=== PATIENT | male | born 1955 | race Caucasian/White ===

== ENCOUNTER 2019-02-03 15:50 | Emergency (ER) | payer OTHER ==
[2019-02-03 16:36] LABS: Absolute Monocytes 0.6 K/uL (0.1-1.3); Absolute Neutrophil 5.6 K/uL (1.8-8.0); Basophils % 0.9 % (0-1.3); Eosinophils % 0.5 % (0-4.4); Hematocrit 43.2 % (39.6-49.0); Lymphocytes % 14.3 % (15.3-44.8); MPV 9.3 fL (7.6-11.3); Monocytes % 7.6 % (3.3-12.3); RBC Red Blood Cell Count 4.71 M/uL (4.33-5.43)
[2019-02-03 16:37] LABS: Protime INR 1.02
[2019-02-03] MEDS ORDERED: HEPARIN 5000 UNIT/ML 1 ML VIAL ONE (16:45)
[2019-02-03] MEDS ORDERED: HEPARIN/D5W 25,000 UNIT/500 ML BAG IV ONE (16:45)
[2019-02-03] MEDS ORDERED: METOPROLOL TARTRATE 5 MG/5 ML INJ IV ONE (16:46)
--- NOTE | 2019-02-03 16:52 | RAD REPORT ---
EXAM DESCRIPTION: RAD - Chest Single View - 02/03/2019 4:31 pm CLINICAL HISTORY: Right hand and arm numbness, history of CVA, preop examination for arterial occlus ion COMPARISON: December 2017 TECHNIQUE: AP portable chest image was obtained 1629 hours . FINDINGS: No failure, infiltrate or mass. Scarring changes match prior imaging. Heart and vasculatur e are normal. No measurable pleural effusion and no pneumothorax. No acute bony abnormality seen. No acute aortic findings suspected. IMPRESSION: No acute cardiopulmonary process. No significant interval change.
--- NOTE | 2019-02-03 17:00 | EDPHYS ---
Physician Documentation [facility] Name: Ba Ortiz Age: 63 yrs Sex: Male : 1955 Arrival Date: 02/03/2019 Time: 15:51 Bed 7 Private MD: ED Physician Dylan Renteria HPI: 02/03 16:15 This 63 yrs old Male presents to ER via Ambulatory with complaints of kdr Numbness Of Hand. 16:15 The patient or guardian reports pain, weakness, The patient noted pain and weakness in kdr right hand at about 2:00 PM. By 3:00 PM his hand was reported to have been numb. On initial exam, the hand was cool and white/purple. He had limited ROM secondary to weakness and poor circulation. The complaints affect the right hand diffusely. Context: The problem was sustained at home, resulted from an unknown cause. Onset: The symptoms/episode began/occurred acutely, just prior to arrival, at 14:00. Modifying factors: The symptoms are alleviated by nothing, the symptoms are aggravated by nothing. Associated signs and symptoms: The patient has no apparent associated signs or symptoms. Severity of symptoms: At their worst the symptoms were mild, moderate, just prior to arrival, in the emergency department the symptoms are actually worse, markedly. Several years ago had a similar problem which resulted in an arterial bypass in the upper extremities. The patient has not recently seen a physician. Historical: - Allergies: 15:57 No Known Allergies; hj - PMHx: 15:57 Arthritis; BPH; CVA; Diabetes - NIDDM; GERD; Gout; hiatal hernia; Hyperlipidemia; hj Hypertension; PAD; - PSHx: 15:57 Appendectomy; Hernia repair; CABG; hj - Immunization history:: Adult Immunizations up to date. - Social history:: Smoking status: Patient uses tobacco products, Patient uses alcohol. - Ebola Screening: : Patient negative for fever greater than or equal to 101.5 degrees Fahrenheit, and additional compatible Ebola Virus Disease symptoms Patient denies exposure to infectious person Patient denies travel to an Ebola-affected area in the 21 days before illness onset. ROS: 16:15 Constitutional: Negative for fever, chills, and weight loss, Eyes: Negative for injury, kdr pain, redness, and discharge, ENT: Negative for injury, pain, and discharge, Neck: Negative for injury, pain, and swelling, Cardiovascular: Negative for chest pain, palpitations, and edema, Respiratory: Negative for shortness of breath, cough, wheezing, and pleuritic chest pain, Abdomen/GI: Negative for abdominal pain, nausea, vomiting, diarrhea, and constipation, Back: Negative for injury and pain, : Negative for injury, bleeding, discharge, and swelling, Skin: Negative for injury, rash, and discoloration. Exam: 16:53 Constitutional: This is a well developed, well nourished patient who is awake, alert, kdr and in no acute distress. Head/Face: Normocephalic, atraumatic. Eyes: Pupils equal round and reactive to light, extra-ocular motions intact. Lids and lashes normal. Conjunctiva and sclera are non-icteric and not injected. Cornea within normal limits. Periorbital areas with no swelling, redness, or edema. Neck: Trachea midline, no thyromegaly or masses palpated, and no cervical lymphadenopathy. Supple, full range of motion without nuchal rigidity, or vertebral point tenderness. No Meningismus. Chest/axilla: Normal chest wall appearance and motion. Nontender with no deformity. No lesions are appreciated. Cardiovascular: Regular rate and rhythm with a normal S1 and S2. No gallops, murmurs, or rubs. Normal PMI, no JVD. No pulse deficits. Respiratory: Lungs have equal breath sounds bilaterally, clear to auscultation and percussion. No rales, rhonchi or wheezes noted. No increased work of breathing, no retractions or nasal flaring. Abdomen/GI: Soft, non-tender, with normal bowel sounds. No distension or tympany. No guarding or rebound. No evidence of tenderness throughout. Back: No spinal tenderness. No costovertebral tenderness. Full range of motion. Skin: Warm, dry with normal turgor. Normal color with no rashes, no lesions, and no evidence of cellulitis. Neuro: Awake and alert, GCS 15, oriented to person, place, time, and situation. Cranial nerves II-XII grossly intact. Motor strength 5/5 in all extremities. Sensory grossly intact. Cerebellar exam normal. Normal gait. Psych: Awake, alert, with orientation to person, place and time. Behavior, mood, and affect are within normal limits. 16:53 Musculoskeletal/extremity: Extremities: grossly normal except: noted in the right hand: The patient has limited movement of the right hand secondary decreased circulation. Unable to Doppler a pulse in either radial or ulnar arteries. Also, unable to Doppler a brachial or axillary pulse. The patient had had prior bypass grafting on that side of his neck - unknown if this may be interfering with aquisition of pulses in right upper extremity. Cap refill is very slow in the right hand , ROM: Vital Signs: 15:58 BP 210 / 93; Pulse 96; Resp 18; Temp 98.6(O); Pulse Ox 99% on R/A; Weight 88 kg; Height hj 5 ft. 9 in. (175.26 cm); Pain 9/10; 16:05 BP 220 / 107; Pulse 91; Resp 16 S; Pulse Ox 96% on R/A; jl7 16:38 BP 203 / 109; Pulse 77; Resp 16 S; Pulse Ox 97% on R/A; jl7 16:55 BP 189 / 105; Pulse 74; Resp 16 S; Pulse Ox 97% on R/A; jl7 17:05 BP 191 / 97; Pulse 76; Resp 16 S; Pulse Ox 97% on R/A; jl7 18:08 BP 187 / 103; Pulse 93; Resp 16 S; Pulse Ox 97% on R/A; jl7 15:58 Body Mass Index 28.65 (88.00 kg, 175.26 cm) MDM: 17:00 Patient medically screened. kdr 17:00 Data reviewed: vital signs, nurses notes, lab test result(s), radiologic studies. kdr Counseling: I had a detailed discussion with the patient and/or guardian regarding: the historical points, exam findings, and any diagnostic results supporting the discharge/admit diagnosis, lab results, radiology results, the need to transfer to another facility. 02/03 16:15 Order name: Basic Metabolic Panel kdr 02/03 16:15 Order name: CBC with Diff; Complete Time: 16:51 kdr 02/03 16:15 Order name: LFT's kdr 02/03 16:15 Order name: Magnesium kdr 02/03 16:15 Order name: NT PRO-BNP kdr 02/03 16:15 Order name: PT-INR; Complete Time: 16:51 kdr 02/03 16:15 Order name: Troponin (emerg Dept Use Only) kdr 02/03 16:15 Order name: XRAY Chest (1 view) [facility] 02/03 16:51 Order name: Chest Angio [facility] 02/03 16:52 Order name: Upper Ext Angio [facility] 02/03 16:15 Order name: Cardiac monitoring [facility] 02/03 16:15 Order name: IV Saline Lock kdr 02/03 16:15 Order name: Labs collected and sent kdr 02/03 16:15 Order name: O2 Per Protocol kdr 02/03 16:15 Order name: O2 Sat Monitoring kdr Administered Medications: 16:45 Drug: Lopressor 5 mg Route: IVP; Site: left forearm; jl7 16:50 Drug: Heparin (DVT/PE- Bolus per protocol) - HEParin 80 units/kg {Co-Signature: hb jl7 (Kristal Lang RN).} Route: IVP; Site: left hand; 17:30 Follow up: Response: No adverse reaction jl7 16:56 Drug: Lopressor 5 mg Route: IVP; Site: left forearm; jl7 17:00 Drug: Heparin (DVT/PE Drip) 18 units/kg/hr - (HEParin 25354 units, D5W 500 ml) jl7 {Co-Signature: hb (Kristal Lang RN).} Route: IV; Rate: calculated rate; Site: left hand; 17:49 Follow up: IV Status: Infusion continued upon transfer jl7 17:09 Drug: Lopressor 5 mg Route: IVP; Site: left forearm; jl7 18:03 Follow up: Response: No adverse reaction; Blood pressure is unchanged jl7 17:21 Drug: Zofran 4 mg Route: IVP; Site: left forearm; jl7 17:48 Follow up: Response: No adverse reaction jl7 17:23 Drug: morphine 4 mg Route: IVP; Site: left forearm; jl7 17:48 Follow up: Response: No adverse reaction; Pain is decreased jl7 Disposition: 02/03/19 17:[address] [facility]. Diagnosis is Acute arterial occlusion of the right hand, ulnar and radial arteries. - Reason for transfer: Higher level of care. - Accepting physician is Dr. Sarkar. - Condition is Stable. - Problem is new. - Symptoms are unchanged. Signatures: Dispatcher [employer] [facility] Dylan Renteria MD MD kdr Gonsalo Burdick, RN RN Tenzin Bauer RN RN jl7 Kristal Lang RN Corrections: (The following items were deleted from the chart) 16:54 16:51 Extremity Upper W/Wo Contr ordered. EDMS EDMS 18:10 17:00 02/03/2019 17:[address] [facility]. Diagnosis is jl7 Acute arterial occlusion of the right hand, ulnar and radial arteries. Reason for transfer: Higher level of care. Accepting physician is Dr. Sarkar. Condition is Stable. Problem is new. Symptoms are unchanged. kdr
--- NOTE | 2019-02-03 17:00 | ER ---
Nurse's Notes [facility] Name: Ba Ortiz Age: 63 yrs Sex: Male : 1955 Arrival Date: 02/03/2019 Time: 15:51 Bed 7 Private MD: Diagnosis: Acute arterial occlusion of the right hand, ulnar and radial arteries Presentation: 02/03 15:54 Presenting complaint: Patient states: my hands went numb that started 2 pm today; just hj sitting on my room; i have a bypass subclavian in 2013; my R hand is cold and clammy and numb; denies weakness on all extremities; denies speech problem;. Transition of care: patient was not received from another setting of care. Onset of symptoms was February 03, 2019. Risk Assessment: Do you want to hurt yourself or someone else? Patient reports no desire to harm self or others. Initial Sepsis Screen: Does the patient meet any 2 criteria? No. Patient's initial sepsis screen is negative. Does the patient have a suspected source of infection? No. Patient's initial sepsis screen is negative. Care prior to arrival: None. 15:54 Method Of Arrival: Ambulatory 15:54 Acuity: BETHEL 2 hj Triage Assessment: 15:58 General: Appears in no apparent distress. uncomfortable, Behavior is calm, cooperative, hj appropriate for age. Pain: Complains of pain in right hand. Historical: - Allergies: 15:57 No Known Allergies; hj - PMHx: 15:57 Arthritis; BPH; CVA; Diabetes - NIDDM; GERD; Gout; hiatal hernia; Hyperlipidemia; hj Hypertension; PAD; - PSHx: 15:57 Appendectomy; Hernia repair; CABG; hj - Immunization history:: Adult Immunizations up to date. - Social history:: Smoking status: Patient uses tobacco products, Patient uses alcohol. - Ebola Screening: : Patient negative for fever greater than or equal to 101.5 degrees Fahrenheit, and additional compatible Ebola Virus Disease symptoms Patient denies exposure to infectious person Patient denies travel to an Ebola-affected area in the 21 days before illness onset. Screenin:58 Abuse screen: Denies threats or abuse. Denies injuries from another. Nutritional hj screening: No deficits noted. Tuberculosis screening: No symptoms or risk factors identified. Fall Risk None identified. Assessment: 16:05 General: Appears in no apparent distress. uncomfortable, Behavior is calm, cooperative, jl7 appropriate for age. Pain: Complains of pain in right hand. Neuro: Level of Consciousness is awake, alert, obeys commands, Oriented to person, place, time, situation. Cardiovascular: Patient's skin is warm and dry. Pulses are absent in right radial artery and right brachial artery are palpable in left radial artery are 1+ in left radial artery. Respiratory: Airway is patent Respiratory effort is even, unlabored, Respiratory pattern is regular, symmetrical. Derm: Skin is pink, warm \T\ dry. 17:00 Reassessment: Patient appears in no apparent distress at this time. No changes from jl7 previously documented assessment. Patient and/or family updated on plan of care and expected duration. Pain level reassessed. Patient is alert, oriented x 3, equal unlabored respirations, skin warm/dry/pink. Vital Signs: 15:58 BP 210 / 93; Pulse 96; Resp 18; Temp 98.6(O); Pulse Ox 99% on R/A; Weight 88 kg; Height hj 5 ft. 9 in. (175.26 cm); Pain 9/10; 16:05 BP 220 / 107; Pulse 91; Resp 16 S; Pulse Ox 96% on R/A; jl7 16:38 BP 203 / 109; Pulse 77; Resp 16 S; Pulse Ox 97% on R/A; jl7 16:55 BP 189 / 105; Pulse 74; Resp 16 S; Pulse Ox 97% on R/A; jl7 17:05 BP 191 / 97; Pulse 76; Resp 16 S; Pulse Ox 97% on R/A; jl7 18:08 BP 187 / 103; Pulse 93; Resp 16 S; Pulse Ox 97% on R/A; jl7 15:58 Body Mass Index 28.65 (88.00 kg, 175.26 cm) hj ED Course: 15:51 Patient arrived in ED. rg4 15:56 Triage completed. hj 15:58 Arm band placed on right wrist. hj 15:58 Patient has correct armband on for positive identification. Placed in gown. Bed in low hj position. Call light in reach. Side rails up X 1. 16:01 Tenzin Thornton RN is Primary Nurse. jl7 16:05 Dylan Renteria MD is Attending Physician. kdr 16:20 Initial lab(s) drawn, by me, sent to lab. Inserted saline lock: 20 gauge in left hand, jl7 using aseptic technique. Blood collected. 16:32 XRAY Chest (1 view) In Process Unspecified. EDMS 16:35 initiated a transfer with Nani at the [facility] transfer center. eb 16:[address] odom the vascular surgeon orthodontist vice president with Dr. Renteria for patient transfer eb consultation. 16:45 Inserted saline lock: 22 gauge in left forearm, using aseptic technique. jl7 17:15 administrative approval given by Nani Lee at [facility]/ patient is going to bed 1155/ report to be called to [phone]/ Dr. Odom has accepted the patient in [facility]. 17:26 Sina Griffin called for transport ETA 25 minutes. eb 17:[address] via stretcher. vr 17:49 Chest Angio In Process Unspecified. EDMS 17:49 Upper Ext Angio In Process Unspecified. EDMS 18:05 No provider procedures requiring assistance completed. Patient transferred, IV remains jl7 in place. intact, No redness/swelling at site. Administered Medications: 16:45 Drug: Lopressor 5 mg Route: IVP; Site: left forearm; jl7 16:50 Drug: Heparin (DVT/PE- Bolus per protocol) - HEParin 80 units/kg {Co-Signature: hb jl7 (Kristal Lang RN).} Route: IVP; Site: left hand; 17:30 Follow up: Response: No adverse reaction jl7 16:56 Drug: Lopressor 5 mg Route: IVP; Site: left forearm; jl7 17:00 Drug: Heparin (DVT/PE Drip) 18 units/kg/hr - (HEParin 68891 units, D5W 500 ml) jl7 {Co-Signature: hb (Kristal Lang RN).} Route: IV; Rate: calculated rate; Site: left hand; 17:49 Follow up: IV Status: Infusion continued upon transfer jl7 17:09 Drug: Lopressor 5 mg Route: IVP; Site: left forearm; jl7 18:03 Follow up: Response: No adverse reaction; Blood pressure is unchanged jl7 17:21 Drug: Zofran 4 mg Route: IVP; Site: left forearm; jl7 17:48 Follow up: Response: No adverse reaction jl7 17:23 Drug: morphine 4 mg Route: IVP; Site: left forearm; jl7 17:48 Follow up: Response: No adverse reaction; Pain is decreased jl7 Outcome: 17:00 ER care complete, transfer ordered by . kdr 18:05 Transferred by helicopter to [facility], [facility], Transfer form completed. jl7 18:05 Condition: stable 18:05 Discharge instructions given to patient, family, Instructed on the need for transfer, Demonstrated understanding of instructions. 18:10 Patient left the ED. jl7 Signatures: Dispatcher [employer] EDMS Dylan Renteria MD MD kdr Davis, Victoria vr Joaquin, Henry, RN RN Nathaly Valero Jahala, RN RN jlLeonela Fleming RN Corrections: (The following items were deleted from the chart) 16:02 15:58 Pulse 96bpm; Resp 18bpm; Pulse Ox 99% RA; Temp 98.6F Oral; 88 kg; Height 5 ft. 9 hj in.; BMI: 28.6; Pain 9/10; hj 16:06 15:54 Acuity: BETHEL 3 hj hj 17:28 16:[address] Viera the vascular surgeon orthodontist vice president with Dr. Renteria for patient eb transfer consultation. eb
[2019-02-03 17:01] LABS: ALT/SGPT 49 U/L (12-78); AST/SGOT 31 U/L (15-37); Albumin 3.7 g/dL (3.4-5.0); Alkaline Phosphatase 98 U/L (45-117); BUN Blood Urea Nitrogen 19 mg/dL (7-18); Bicarbonate 20 mmol/L (21-32); Bilirubin Direct 0.2 mg/dL (0-0.2); Bilirubin Total 0.5 mg/dL (0.2-1.0); Glucose Level 208 mg/dL (74-106); NT PRO-BNP 43 pg/mL (<125); Potassium 5.2 mmol/L (3.5-5.1); Protein, Total 8.1 g/dL (6.4-8.2); Sodium Level 136 mmol/L (136-145); Troponin (Emerg Dept Use Only) < 0.02 ng/mL (0.0-0.045)
[2019-02-03] MEDS ORDERED: MORPHINE 4 MG/ML SYR ONE (17:31)
[2019-02-03] MEDS ORDERED: ONDANSETRON 4 MG/2 ML VIAL ONE (17:31)
--- NOTE | 2019-02-03 18:01 | RAD REPORT ---
EXAM DESCRIPTION: CT - Chest Angio - 02/03/2019 5:48 pm CLINICAL HISTORY: Extremity numbness, arterial occlusion, history of subclavian bypass 2014, right h and cold and clammy and numb COMPARISON: None. TECHNIQUE: Dynamically enhanced axial 3 mm thick images of the chest were obtained during administra tion of 150 mL Isovue 370 IV contrast. Coronal and oblique reconstruction images were generated using maximum intensity projection protocol and reviewed. All CT scans are performed using dose optimization technique as appropriate and may include automated exposure control or mA/KV adjustment according to patient size. FINDINGS: Aortic arch is 3 vessel configuration. The left subclavian artery origin is occluded. Ther e is left common carotid to left subclavian bypass on the left. No left common carotid artery stenosi s. The bypass is fully patent. The mid and distal portion of the subclavian artery on the left is int act with patent left axillary artery. Innominate artery is patent. Right common carotid artery is pat ent as well. Right subclavian bypass is present. Vascular graft is present extending from the right c ommon carotid artery to the midportion of the right subclavian [place] artery. The distal portion of t he right subclavian artery into the right axillary artery is small in size compared to the left but p atent. Aorta shows no significant or suspicious finding. Celiac, superior mesenteric and right renal artery unremarkable. No left kidney is seen. No acute finding in the lung parenchyma. No pneumothorax or pleural effusion. Patient has a very large hiatal hernia with most of the stomach intrathoracic. No mediastinal or [place]ia [place] r mass or lymphadenopathy. No axillary mass. IMPRESSION: The right internal carotid artery to distal subclavian artery bypass is occluded. Blood flow is identifiable in the distal aspect of the right subclavian artery into the right axillar y artery. This vessel is diminished in size compared to the left. Opacification is presumed to be fro m a collateralized [place] vessel. Occluded origin of the left subclavian artery. There is a patent graft between the left internal lott tid artery and midportion of the left subclavian artery. Distal left subclavian artery and axillary a rtery on the left are patent. No acute aortic finding. No pulmonary arterial tree abnormality.
--- NOTE | 2019-02-03 18:05 | RAD REPORT ---
EXAM DESCRIPTION: CT - Upper Ext Angio - 02/03/2019 5:48 pm CLINICAL HISTORY: Right upper extremity pain, arterial occlusion COMPARISON: CT angio chest same day TECHNIQUE: During dynamic enhancement using nonionic IV contrast, axial 3 millimeter thick images we re obtained of the chest and right upper extremity. Sagittal and coronal reformatted images were gene rated and reviewed using a maximum intensity projection protocol. The CT scan was performed using dose optimization techniques as appropriate to a performed exam incl uding one or more of the following: Automated exposure control, adjustment of the mA and/or kV accord ing to patient size (this includes techniques or standardized protocols for targeted exams where dose is matched to indication/reason for exam) and use of iterative reconstruction technique. FINDINGS: On the separately reported CT angio chest study, the patient's right internal carotid to s ubclavian artery bypass graft is occluded. The distal right subclavian artery into the right axillary artery is patent. However, the vessel is small in diameter compared to the left subclavian and axill janet arteries. Brachial artery remains patent. Contrast opacification terminates near the elbow joint. No arterial opacification seen distal to the elbow. Exam is technically limited due to positioning l imitations for this patient. No extravasation of contrast. No soft tissue mass. IMPRESSION: The patient's right internal carotid artery to distal right subclavian artery bypass gra ft is occluded. The distal aspect of the right subclavian artery, axillary artery and brachial artery to the elbow eneida int are patent with overall diminished diameter compared to the left. No arterial blood flow could be demonstrated distal to the elbow joint.
== END 2019-02-03 18:10 | disposition short-term general hospital (02) ==
LOC: ER 15:50
DX: I70.8 Atherosclerosis of other arteries (principal); N40.0 Benign prostatic hyperplasia without lower urinary tract symptoms; E11.9 Type 2 diabetes mellitus without complications; K21.9 Gastro-esophageal reflux disease without esophagitis; M10.9 Gout, unspecified; E78.5 Hyperlipidemia, unspecified; I10 Essential (primary) hypertension; Z72.0 Tobacco use
CPT/HCPCS: 96365; 85025; 80048; 36415; 83735; 85610; 80076; 84484; 83880; 73206; 71275; 71045; 96375; 99285; Q9967; J1644 ×2; J2405

== ENCOUNTER 2021-12-18 00:31 | Emergency (ER) | payer OTHER ==
--- OUTSIDE RECORDS SUMMARY | 2021-12-18 00:34 | XMS REPORT | Continuity of Care Document ---
:1955 Author Organization [facility] t Address [address] [place] [place] [address] Care Team Providers Name Role Phone EVERTON Attending Clinician Unavailable Everton SCHWARZ Attending Clinician ADELA Attending Clinician Unavailable EVERTON Admitting Clinician Unavailable ADELA Admitting Clinician Unavailable Payers Payer Name Policy Type Policy Number Effective Date Expiration Date S thompson MEDICARE A B [id number] 2018 00:00:00 [facility] CHO[facility] [id number] 2019 CARD AND PC3 00:00:00 Problems This patient has no known problems. Allergies, Adverse Reactions, Alerts Allergy Allergy Status Severity Reaction(s) Onset Inactive Treating Comm ents Source Name Type Date Date Clinician PROPOFOL Allergy Active [facility] NO KNOWN Allergy [facility] Social History Social Habit Start Date Stop Date Quantity Comments Source Sex Assigned At M [facility] llgeovani of Medicine Exposure to Not sure [facility] Jose hernandez SARS-CoV-2 of Medicine (event) Alcohol intake 2020-07-11 2020-07-11 Current drinker [facility] 00:00:00 00:00:00 of alcohol of Medicine (finding) Tobacco use and 2020-07-11 2020-07-11 Never used [facility] josé miguele exposure 00:00:00 00:00:00 of Medicine Smoking Status Start Date Stop Date Source Former smoker 2020-07-11 00:00:00 2020-07-11 00:00:00 [facility] Suahil ingram of Medicine Medications Ordered Filled Start Stop Current Ordering Indication Dosage Frequency Signature Comments Components Source Medication Medication Date Date Medication? Clinician (SIG) Name Name Apixaban 2020-0 Yes 5mg Take 5 mg [facility] (ELIQUIS) 5 9-10 by mouth. Col [facility]ge MG TABS 15:12: of 37 Medicin e omeprazole 2020-0 Yes 40mg Take 40 mg [facility] (PRILOSEC) 8-21 by mouth. Rena ege 40 MG 21:14: of capsule 24 Medicin e losartan 2020-0 Yes 25mg Take 25 mg [place] jan (COZAAR) 25 8-21 by mouth. Col [facility]ge MG tablet 21:14: of 24 Medicin e carvedilol 2020-0 Yes 25mg Take 25 mg [facility] (COREG) 25 8-21 by mouth. Rena ege MG tablet 21:14: of 24 Medicin e metformin 2020-0 Yes 500mg Take 500 [place] jan (GLUCOPHAGE 8-21 mg by [place] ) 500 MG 21:14: mouth. of tablet 24 Medicin e finasteride 2020-0 Yes 5mg Take 5 mg [facility] (PROSCAR) 5 8-21 by mouth. Col [facility]ge MG tablet 21:14: of 24 Medicin e atorvastati 2020-0 Yes 40mg Take 40 mg [facility] n (LIPITOR) 8-21 by mouth. Col [facility]ge 40 MG 21:14: of tablet 24 Medicin e carvedilol 2020-0 Yes 25mg Take 25 mg [facility] (COREG) 25 6-22 by mouth. Rena ege MG tablet 16:22: of 22 Medicin e metformin 2020-0 Yes 500mg Take 500 [place] jan (GLUCOPHAGE 6-22 mg by [place] ) 500 MG 16:22: mouth. of tablet 22 Medicin e finasteride 2020-0 Yes 5mg Take 5 mg [facility] (PROSCAR) 5 6-22 by mouth. Col [facility]ge MG tablet 16:22: of 22 Medicin e atorvastati 2020-0 Yes 40mg Take 40 mg [facility] n (LIPITOR) 6-22 by mouth. Col [facility]ge 40 MG 16:22: of tablet 22 Medicin e losartan 2020-0 Yes 25mg Take 25 mg [place] jan (COZAAR) 25 6-22 by mouth. Col [facility]ge MG tablet 16:22: of 22 Medicin e omeprazole 2019-0 Yes 40mg Take 40 mg [facility] (PRILOSEC) 6-22 by mouth. Rena ege 40 MG 16:22: of capsule 21 Medicin e Vital Signs Vital Name Observation Time Observation Value Comments Source HEIGHT 2020-05-01 00:00:00 172.7 cm WEIGHT 2020-05-01 00:00:00 84.2 kg Systolic blood 2020-07-11 15:13:00 197 mm[Hg] [facility] Diastolic blood 2020-07-11 15:13:00 112 mm[Hg] [facility] Heart rate 2020-07-11 15:13:00 92 /min [facility] HEIGHT 2020-05-01 00:00:00 172.7 cm WEIGHT 2020-05-01 00:00:00 84.2 kg Systolic blood 2020-04-22 16:11:00 131 mm[Hg] [facility] Diastolic blood 2020-04-22 16:11:00 85 mm[Hg] [facility] Heart rate 2020-04-22 16:11:00 90 /min [facility] Body temperature 2020-04-22 16:11:00 36.61 [facility] Respiratory rate 2020-04-22 16:11:00 18 /min [facility] Systolic blood 2020-04-22 16:11:00 131 mm[Hg] [facility] Diastolic blood 2020-04-22 16:11:00 85 mm[Hg] [facility] Heart rate 2020-04-22 16:11:00 90 /min [facility] Body temperature 2020-04-22 16:11:00 36.61 [facility] Respiratory rate 2020-04-22 16:11:00 18 /min [facility] Procedures Procedure Date / Time Performed Performing Clinician Sourc e LARYNGOSCOPY, FLEXIBLE 2020-07-11 17:06:00 [facility] WITH STROBOSCOPY LARYNGOSCOPY, FLEXIBLE 2020-04-22 17:57:00 Melanie Toscano Ba [facility] of OR RIGID TELESCOPIC, Medicine WITH STROBOSCOPY Plan of Care Planned Activity Planned Date Details Comments Source Future Scheduled LARYNGOSCOPY, Ordered: [facility] Col lege Test FLEXIBLE; DIAGNOSTIC 04/22/2020 of [employer] [code = 09607] Future Scheduled [place] LARYNGOSCOPY Ordered: [facility] C ollege Test FLX/RGD TELESCOPIC 04/22/2020 of Medici ne W/STROBOSCOPY [code = 48518] Future Scheduled COLON CANCER [facility] Rena ege Test SCREENING: of Medicine COLONOSCOPY [code = COLON CANCER SCREENING: COLONOSCOPY] Future Scheduled TETANUS SHOT (ADULT) [place] [facility] [employer] Test [code = TETANUS SHOT of Medi cine (ADULT)] Future Scheduled HEPATITIS C SCREENING [employer] Test [code = HEPATITIS C of Medic ine SCREENING] Future Scheduled MEDICARE AWV [facility] Test (Initial) [code = of Medicin e MEDICARE AWV (Initial)] Future Scheduled FALL SCREEN [code = [employer] Test FALL SCREEN] of Medicine Future Scheduled PNEUMOVAX >=65 [employer] Test (PPSV23) [code = of Medicine PNEUMOVAX >=65 (PPSV23)] Future Scheduled FLU VACCINE > 6 [facility] [employer] Test MONTHS [code = FLU of Medici ne VACCINE > 6 MONTHS] Future Scheduled LARYNGOSCOPY, Ordered: [facility] Col lege Test FLEXIBLE; DIAGNOSTIC 07/11/2020 of [employer] [code = 67572] Future Scheduled COLON CANCER [facility] Rena ege Test SCREENING: of Medicine COLONOSCOPY [code = COLON CANCER SCREENING: COLONOSCOPY] Future Scheduled TETANUS SHOT (ADULT) [place] [facility] [employer] Test [code = TETANUS SHOT of Medi cine (ADULT)] Future Scheduled HEPATITIS C SCREENING [employer] Test [code = HEPATITIS C of Medic ine SCREENING] Future Scheduled ZOSTER VACCINE (1 of [place] jan [employer] Test 2) [code = ZOSTER of Medicin e VACCINE (1 of 2)] Future Scheduled AAA Screen [code = [employer] Test AAA Screen] of Medicine Future Scheduled FALL SCREEN [code = [employer] Test FALL SCREEN] of Medicine Future Scheduled PNEUMOVAX >=65 [facility] Co llege Test (PPSV23) [code = of Medicine PNEUMOVAX >=65 (PPSV23)] Future Scheduled FLU VACCINE > 6 [facility] [employer] Test MONTHS [code = FLU of Medici ne VACCINE > 6 MONTHS] Encounters Start End Encounter Admission Attending Care Care Encounter Source Date/Time Date/Time Type Type Clinicians Facility Department ID 2021-08-05 Outpatient BRANDON TOSCANO Surgery [id number] SLE 22:27:59 MELANIE 2020-07-11 2020-07-11 Office ERNESTO Toscano [id number] [facility] 10:02:43 12:01:52 Visit Melanie AMBULATOR [id number] College Y 0.2.7.2.686 of [id number] [facility] deshawn 800 e 2020-05-16 2020-05-16 Outpatient [facility] [id number] SLE 00:00:00 00:00:00 2020-04-22 2020-04-22 Office ERNESTO Toscano [id number] 10:01:10 11:50:56 Visit Melanie AMBULATOR 350.1.13.21 Y 0.2.7.2.686 [id number] 2020-04-22 2020-04-22 Office ERNESTO Toscano [id number] [facility] 10:01:10 11:50:56 Visit Melanie AMBULATOR 350.1.13.21 College Y 0.2.7.2.686 of [id number] [facility] deshawn 800 e Results Test Description Test Time Test Comments Results Result [facility] e Comments LARYNGOSCOPY, 2020-07-11 IMAGES ARE [facility] Rena ege FLEXIBLE OR RIGID 17:06:00 AVAILABLE FOR [facility] ryan TELESCOPIC, WITH VIEWING. STROBOSCOPY POCT-GLUCOSE METER 2020-05-17 17:18:00 Test Item Value Reference Range Interpretation Comme nts POC-GLUCOSE METER (BEAKER) 184 mg/dL 70-110 H : TESTED AT [facility] [address] (test code = 1538) [place], [id number]: Specialized Developer/Techni adonis ID = [id number] for KLAUS SHERIDAN BASIC METABOLIC [id number] 10:20:00 Test Item Value Reference Range Interpretation Comments SODIUM (BEAKER) 136 meq/L 136-145 (test code = 381) POTASSIUM (BEAKER) 4.6 meq/L 3.5-5.1 (test code = 379) CHLORIDE (BEAKER) 103 meq/L 98-107 (test code = 382) CO2 (BEAKER) (test 22 meq/L 22-29 code = 355) BLOOD UREA NITROGEN 15 mg/dL 7-21 (BEAKER) (test code = 354) CREATININE (BEAKER) 1.44 mg/dL 0.57-1.25 H (test code = 358) GLUCOSE RANDOM 172 mg/dL 70-105 H (BEAKER) (test code = 652) CALCIUM (BEAKER) 9.9 mg/dL 8.4-10.2 (test code = 697) EGFR (BEAKER) (test 49 mL/min/1.73 ESTIMA YEIMI GFR IS code = 1092) sq m NOT ACCURATE CREATININE CLEARANCE IN PREDICTING GLOMERULAR FILTRATION RATE . ESTIMATED GFR I S NOT APPLICABLE FOR DIALYSIS PATIEN TS. Specialized Developer ID - [place] [id number] 10:01:00 Test Item Value Reference Range Interpretation Comments HEMOGLOBIN (BEAKER) (test code = 12.2 GM/DL 13.7-17.5 L 410) Specialized Developer ID - [id number] 08:23:00 Test Item Value Reference Range Interpretation Comments POC-GLUCOSE METER 170 mg/dL 70-110 H : [facility] (BEAKER) (test code = FELIPE Princess [facility], 1538) [address]: Specialized Developer/Techni adonis ID = [id number] for BE NSON, HELEN LARYNGOSCOPY, FLEXIBLE OR RIGID TELESCOPIC, WITH [id number] 17:57:00 IMAGES [id number] 22:53[facility]00 Test Item Value Reference Range Interpretation Comments PARTIAL THROMBOPLASTIN TIME 65.0 seconds 22.5-36.0 H (BEAKER) (test code = 760) BASIC METABOLIC [id number] 22:45:00 Test Item Value Reference Range Interpretation Comments SODIUM (BEAKER) 134 meq/L 136-145 L (test code = 381) POTASSIUM (BEAKER) 5.9 meq/L 3.5-5.1 H (test code = 379) CHLORIDE (BEAKER) 99 meq/L 98-107 (test code = 382) CO2 (BEAKER) (test 18 meq/L 22-29 L code = 355) BLOOD UREA NITROGEN 21 mg/dL 7-21 (BEAKER) (test code = 354) CREATININE (BEAKER) 1.46 mg/dL 0.57-1.25 H (test code = 358) GLUCOSE RANDOM 174 mg/dL 70-105 H (BEAKER) (test code = 652) CALCIUM (BEAKER) 9.4 mg/dL 8.4-10.2 (test code = 697) EGFR (BEAKER) (test 48 mL/min/1.73 ESTIMA YEIMI GFR IS code = 1092) sq m NOT ACCURATE CREATININE CLEARANCE IN PREDICTING GLOMERULAR FILTRATION RATE . ESTIMATED GFR I S NOT APPLICABLE FOR DIALYSIS PATIEN TS. CBC W/PLT COUNT & AUTO [id number] 22:35:00 Test Item Value Reference Range Interpretation Comments WHITE BLOOD CELL COUNT (BEAKER) 8.3 K/ L 3.5-10.5 (test code = 775) RED BLOOD CELL COUNT (BEAKER) 4.70 M/ L 4.63-6.08 (test code = 761) HEMOGLOBIN (BEAKER) (test code = 14.0 GM/DL 13.7-17.5 410) HEMATOCRIT (BEAKER) (test code = 43.4 % 40.1-51.0 411) MEAN CORPUSCULAR VOLUME (BEAKER) 92.3 fL 79.0-92.2 H (test code = 753) MEAN CORPUSCULAR HEMOGLOBIN 29.8 pg 25.7-32.2 (BEAKER) (test code = 751) MEAN CORPUSCULAR HEMOGLOBIN CONC 32.3 GM/DL 32.3-36.5 (BEAKER) (test code = 752) RED CELL DISTRIBUTION WIDTH 14.6 % 11.6-14.4 H (BEAKER) (test code = 412) PLATELET COUNT (BEAKER) (test 180 K/CU MM 150-450 code = 756) MEAN PLATELET VOLUME (BEAKER) 10.6 fL 9.4-12.4 (test code = 754) NUCLEATED RED BLOOD CELLS 0 /100 WBC 0-0 (BEAKER) (test code = 413) NEUTROPHILS RELATIVE PERCENT 82 % (BEAKER) (test code = 429) LYMPHOCYTES RELATIVE PERCENT 10 % (BEAKER) (test code = 430) MONOCYTES RELATIVE PERCENT 7 % (BEAKER) (test code = 431) EOSINOPHILS RELATIVE PERCENT 0 % (BEAKER) (test code = 432) BASOPHILS RELATIVE PERCENT 0 % (BEAKER) (test code = 437) NEUTROPHILS ABSOLUTE COUNT 6.77 K/ L 1.78-5.38 H (BEAKER) (test code = 670) LYMPHOCYTES ABSOLUTE COUNT 0.84 K/ L 1.32-3.57 L (BEAKER) (test code = 414) MONOCYTES ABSOLUTE COUNT (BEAKER) 0.59 K/ L 0.30-0.82 (test code = 415) EOSINOPHILS ABSOLUTE COUNT 0.00 K/ L 0.04-0.54 L (BEAKER) (test code = 416) BASOPHILS ABSOLUTE COUNT (BEAKER) 0.03 K/ L 0.01-0.08 (test code = 417) IMMATURE GRANULOCYTES-RELATIVE 1 % 0-1 PERCENT (BEAKER) (test code = 2801) BASIC METABOLIC [id number] 20:47:00 Test Item Value Reference Range Interpretation Comments SODIUM (BEAKER) 132 meq/L 136-145 L (test code = 381) POTASSIUM (BEAKER) 7.3 meq/L 3.5-5.1 HH Specimen slightly (test code = 379) hemolyzed CHLORIDE (BEAKER) 99 meq/L 98-107 (test code = 382) CO2 (BEAKER) (test 17 meq/L 22-29 L code = 355) BLOOD UREA NITROGEN 20 mg/dL 7-21 (BEAKER) (test code = 354) CREATININE (BEAKER) 1.47 mg/dL 0.57-1.25 H Specimen slightly (test code = 358) hemolyzed GLUCOSE RANDOM 195 mg/dL 70-105 H (BEAKER) (test code = 652) CALCIUM (BEAKER) 9.3 mg/dL 8.4-10.2 (test code = 697) EGFR (BEAKER) (test 48 mL/min/1.73 ESTIMA YEIMI GFR IS code = 1092) sq m NOT ACCURATE CREATININE CLEARANCE IN PREDICTING GLOMERULAR FILTRATION RATE . ESTIMATED GFR I S NOT APPLICABLE FOR DIALYSIS PATIEN TS. [id number] 20:46:00 Test Item Value Reference Range Interpretation Comments PARTIAL THROMBOPLASTIN TIME 153.8 seconds 22.5-36.0 HH (BEAKER) (test code = 760) Prior to initiating heparinCBC (HEMOGRAM ONLY)2019-02-03 20:21:00 Test Item Value Reference Range Interpretation Comments WHITE BLOOD CELL COUNT (BEAKER) 8.5 K/ L 3.5-10.5 (test code = 775) RED BLOOD CELL COUNT (BEAKER) 4.70 M/ L 4.63-6.08 (test code = 761) HEMOGLOBIN (BEAKER) (test code = 14.0 GM/DL 13.7-17.5 410) HEMATOCRIT (BEAKER) (test code = 43.1 % 40.1-51.0 411) MEAN CORPUSCULAR VOLUME (BEAKER) 91.7 fL 79.0-92.2 (test code = 753) MEAN CORPUSCULAR HEMOGLOBIN 29.8 pg 25.7-32.2 (BEAKER) (test code = 751) MEAN CORPUSCULAR HEMOGLOBIN CONC 32.5 GM/DL 32.3-36.5 (BEAKER) (test code = 752) RED CELL DISTRIBUTION WIDTH 14.6 % 11.6-14.4 H (BEAKER) (test code = 412) PLATELET COUNT (BEAKER) (test 228 K/CU MM 150-450 code = 756) MEAN PLATELET VOLUME (BEAKER) 10.9 fL 9.4-12.4 (test code = 754) NUCLEATED RED BLOOD CELLS 0 /100 WBC 0-0 (BEAKER) (test code = 413)
--- NOTE | 2021-12-18 00:56 | ER ---
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 Coronavirus screen: al4 Vaccine status: Patient reports receiving the 2nd dose of the covid vaccine. Ebola Screen: No symptoms or risks identified at this time. Initial Sepsis Screen: Does the patient meet any 2 criteria? No. Patient's initial sepsis screen is negative. Does the patient have a suspected source of infection? No. Patient's initial sepsis screen is negative. Risk Assessment: Do you want to hurt yourself or someone else? Patient reports no desire to harm self or others. Onset of symptoms was December 18, 2021. 00:34 Method Of Arrival: EMS al4 00:34 Acuity: BETHEL 2 al4 00:34 Note ERP at bedside assessing patient. al4 Triage Assessment: 00:36 General: Appears in no apparent distress. comfortable, Behavior is calm, cooperative, al4 Patient states symptoms started around 1130pm last night. Patient c/o right arm pain and numbness. R radial + R brachial pulse not palpable and arm/hand is blue upon assessment. Pain: Complains of pain in right arm Pain currently is 10 out of 10 on a pain scale. EENT: No signs and/or symptoms were reported regarding the EENT system. Neuro: Level of Consciousness is awake, alert, obeys commands, Oriented to person, place, time, situation. 00:39 Cardiovascular: Patient's skin is warm and dry. with exception to R arm. Pulses are al4 palpable in right dorsalis pedis artery, left radial artery and left dorsalis pedis artery. Respiratory: Airway is patent Respiratory effort is even, unlabored, Respiratory pattern is regular, symmetrical. GI: No signs and/or symptoms were reported involving the gastrointestinal system. : No signs and/or symptoms were reported regarding the genitourinary system. Derm: Skin is intact, Skin is right arm is pale/blue. Musculoskeletal: Range of motion: intact in all extremities. Historical: - PMHx: 00:36 Arthritis; BPH; CVA; Diabetes - NIDDM; GERD; Gout; hiatal hernia; Hyperlipidemia; al4 Hypertension; PAD; - PSHx: 00:44 bypass surgery x 2 right side; bypass surgery x 1 left side; al4 - Immunization history:: Adult Immunizations up to date. - Social history:: Smoking status: Patient/guardian denies using tobacco. - Family history:: not pertinent. Screenin:42 Abuse screen: Denies threats or abuse. Nutritional screening: No deficits noted. al4 Tuberculosis screening: No symptoms or risk factors identified. Fall Risk. Assessment: 12/17 02:20 Reassessment: No changes from previously documented assessment. Patient and/or family mk updated on plan of care and expected duration. Pain level reassessed. Patient is alert, oriented x 3, equal unlabored respirations, skin warm/dry/pink. 12/18 00:40 General: Appears in no apparent distress. Behavior is cooperative. Pain: Complains of mk pain in right arm Pain radiates to right hand Pain currently is 10 out of 10 on a pain scale. Quality of pain is described as aching, Pain began gradually, since 0900 Is lasting more than 1 hour. Neuro: Level of Consciousness is awake, alert, obeys commands. Neuro: Level of Consciousness is awake, alert, obeys commands, Oriented to person, place, time, situation, Moves all extremities. Gait is steady, Cardiovascular: Heart tones S1 S2 Capillary refill < 3 seconds fingers toes except ANISH . JVD Patient's skin is warm and dry. Pulses are absent in right radial artery and right brachial artery are 2+ in right dorsalis pedis artery, left radial artery and left dorsalis pedis artery confirmed w/ US Rhythm is sinus rhythm. Respiratory: Airway is patent Trachea midline Respiratory effort is even, unlabored, Respiratory pattern is regular, symmetrical. GI: Abdomen is flat, Bowel sounds present X 4 quads. Abd is soft and non tender X 4 quads. : No signs and/or symptoms were reported regarding the genitourinary system. Derm: Skin is intact, is healthy with good turgor, Skin temperature is warm. Musculoskeletal: Capillary refill < 3 seconds, in left fingers. toes. >3 seconds ANISH . Pelvis is stable. Injury Description:. 00:55 Reassessment: see triage assessment. al4 01:40 Reassessment: No changes from previously documented assessment. Patient and/or family mk updated on plan of care and expected duration. Pain level reassessed. Patient is alert, oriented x 3, equal unlabored respirations, skin warm/dry/pink. Pain: Complains of pain in right arm Pain currently is 7 out of 10 on a pain scale. Quality of pain is described as aching, Pain began gradually, Is lasting more than 1 hour. Alleviated by medications, repositioning. Vital Signs: 00:34 BP 203 / 108; Pulse 95; Resp 18 S; Temp 98.2; Pulse Ox 100% on R/A; Weight 79.38 kg al4 (R); Height 5 ft. 8 in. (172.72 cm); Pain 10/10; 01:07 BP 195 / 115; Pulse 100; Resp 14 S; Pulse Ox 98% on R/A; al4 01:15 BP 201 / 120; Pulse 102; Resp 15; Pulse Ox 100% on R/A; mk 01:30 BP 205 / 104; Pulse 102; Resp 15; Pulse Ox 99% on R/A; mk 01:45 BP 175 / 121; Pulse 96; Resp 23; Pulse Ox 98% on R/A; mk 02:00 BP 192 / 111; Pulse 91; Resp 17; Pulse Ox 98% on R/A; mk 02:30 BP 184 / 89; Pulse 91; Resp 14; Pulse Ox 99% on R/A; mk 00:34 Body Mass Index 26.61 (79.38 kg, 172.72 cm) al4 ED Course: 00:33 Patient arrived in ED. wm 00:34 Arm band placed on left wrist. al4 00:36 Triage completed. al4 00:37 Issac Lee MD is Attending Physician. raphael 00:42 Patient has correct armband on for positive identification. Placed in gown. Side rails al4 up X2. macroeconomics professor on. Pulse ox on. NIBP on. 00:50 initiated a transfer with Griffin from [facility]. mw2 01:00 XRAY Chest (1 view) In Process Unspecified. EDMS 01:02 Arti Hurt, RN is Primary Nurse. mk 01:02 initiated a transfer with Rosa Palumbo from [facility]. mw2 01:04 SARS-COV-2 RT PCR (Document "Date of Onset" if Symptomatic) Sent. mk 01:04 Troponin HS Sent. mk 01:04 PT-INR Sent. mk 01:04 Inserted saline lock: 22 gauge in left wrist, using aseptic technique. mk 01:05 Magnesium Sent. mk 01:05 LFT's Sent. mk 01:05 CBC with Diff Sent. mk 01:05 Basic Metabolic Panel Sent. mk 01:[address] Lee with the Vascular doctor from [facility]. mw2 01:24 No provider procedures requiring assistance completed. Patient transferred, IV remains mk in place. 01:[address] Lee to the Doctor from the [facility]. mw2 01:45 Inserted saline lock: 20 gauge in left antecubital area, using aseptic technique. mk 01:56 administrative approval given by Bro Mueller/ patient has been accepted to the [address] to the ER/ Dr. Zavala accepted the patient in transfer/report to be called to [phone]. 02:30 Report given to Wilian at the [facility] regarding transfer. mk Administered Medications: 00:37 Drug: Nitro-Bid (nitroglycerin) Ointment 2 % 1 inches Route: Transdermal; Site: mk anterior chest wall; 01:20 Drug: morphine 2 mg Route: IVP; Site: left antecubital; mk 01:49 Drug: morphine 2 mg Route: IVP; Site: left antecubital; mk 02:00 Follow up: Response: No adverse reaction mk 01:49 Drug: Zofran (Ondansetron) 4 mg Route: IVP; Site: left antecubital; mk 02:00 Follow up: Response: No adverse reaction mk 02:07 Drug: Heparin (HI Drip) 12 units/kg/hr - (HEParin 65848 units, D5W 500 ml) mk {Co-Signature: al4 (Jonel Russell).} Route: IV; Rate: calculated rate; Site: right antecubital; 02:28 Follow up: Response: No adverse reaction mk 02:20 Drug: Zofran (Ondansetron) 4 mg Route: IVP; Site: left hand; mk 03:49 Follow up: Response: No adverse reaction; lifelight to f/u 02:21 Drug: morphine 4 mg Route: IVP; Site: left wrist; 03:48 Follow up: Response: No adverse reaction; lifelight to f/u 02:29 Drug: Pepcid (famotidine) 20 mg Route: IVP; Site: left wrist; mk 03:48 Follow up: Response: Other; lifelight to f/u Intake: Outcome: 12/17 02:35 Instructed on the need for transfer. 12/18 00:55 ER care complete, transfer ordered by . raphael 01:20 Instructed on the need for transfer. 02:35 Patient left the ED. 02:35 Transferred 02:35 critical Signatures: Dispatcher [employer] EDMS Issac Lee MD MD cha Westbrook, Mercedes mw2 Darling Miller Alexis alArti Dowling, RN RN shashank Russell al4 Corrections: (The following items were deleted from the chart) 00:37 00:34 Acuity: BETHEL 3 al4 al4 00:38 00:36 Neuro: Level of Consciousness is awake, alert, obeys commands, Oriented to al4 al4 00:41 00:36 Neuro: Level of Consciousness is awake, alert, obeys commands, Oriented to al4 al4 00:42 00:34 BP 203 / 108; Pulse 95bpm; Resp 18bpm; Spontaneous; Pulse Ox 100% RA; al4 al4 00:45 00:34 BP 203 / 108; Pulse 95bpm; Resp 18bpm; Spontaneous; Pulse Ox 100% RA; 79.38 kg al4 Reported; Height 5 ft. 8 in.; BMI: 26.6; Pain 10/10; al4 00:58 00:36 General: Appears in no apparent distress. comfortable, Behavior is calm, al4 cooperative, al4 00:58 00:39 Cardiovascular: Heart tones present al4 al4 00:58 00:39 Derm: Skin is intact, Skin is pink, warm \\T\\ dry. right arm is pale/blue al4 al4 01:15 00:36 Pain: Denies pain. al4 al4 01:15 00:36 General: Appears in no apparent distress. comfortable, Behavior is calm, al4 cooperative, Patient states symptoms started around 1130pm last night. Patient c/o right arm pain and numbness. pulse not palpable and arm/hand is blue upon assessment. al4 01:17 00:42 Patient has correct armband on for positive identification. Placed in gown. Side al4 rails up X2. al4 01:17 00:42 Pulse ox on. NIBP on. al4 al4 02:23 00:36 General: Appears in no apparent distress. comfortable, Behavior is calm, al4 cooperative, Patient states symptoms started around 1130pm last night. Patient c/o right arm pain and numbness. R radial pulse not palpable and arm/hand is blue upon assessment. al4 02:25 00:39 Cardiovascular: Heart tones present Pulses are palpable in right dorsalis pedis al4 artery, left radial artery and left dorsalis pedis artery al4 03:40 03:38 Transferred mk mk 03:40 03:38 critical mk mk
--- NOTE | 2021-12-18 00:56 | EDPHYS ---
Physician Documentation [facility] Name: Ba Ortiz Age: 66 yrs Sex: Male : 1955 Arrival Date: 12/18/2021 Time: 00:33 Bed 7 Private MD: ED Physician Issac Lee HPI: 12/18 00:46 This 66 yrs old Male presents to ER via EMS with complaints of Numbness Of Arm. raphael 00:46 The patient or guardian complains of decreased range of motion, pain, that is acute. raphael The complaints affect the right bicep, right antecubital area, dorsal aspect of right forearm, right hand, right elbow and palmar aspect of right forearm. Context: The problem was sustained at home, resulted from unknown cause. Onset: The symptoms/episode began/occurred 1 hour(s) ago. Treatment prior to arrival includes: no previous treatment. Modifying factors: The symptoms are alleviated by nothing. the symptoms are aggravated by movement, lifting weight, bending arm. Associated signs and symptoms: The patient has no apparent associated signs or symptoms. Severity of symptoms: At their worst the symptoms were moderate, severe, in the emergency department the symptoms are unchanged. The patient has experienced a previous episode, approximately 3 years ago. Historical: - PMHx: 00:36 Arthritis; BPH; CVA; Diabetes - NIDDM; GERD; Gout; hiatal hernia; Hyperlipidemia; al4 Hypertension; PAD; - PSHx: 00:44 bypass surgery x 2 right side; bypass surgery x 1 left side; al4 - Immunization history:: Adult Immunizations up to date. - Social history:: Smoking status: Patient/guardian denies using tobacco. - Family history:: not pertinent. ROS: 00:46 Constitutional: Negative for fever, chills, and weight loss, Eyes: Negative for injury, raphael pain, redness, and discharge, ENT: Negative for injury, pain, and discharge, Neck: Negative for injury, pain, and swelling, Cardiovascular: Negative for chest pain, palpitations, and edema, Respiratory: Negative for shortness of breath, cough, wheezing, and pleuritic chest pain, Abdomen/GI: Negative for abdominal pain, nausea, vomiting, diarrhea, and constipation, Back: Negative for injury and pain, : Negative for injury, bleeding, discharge, and swelling, Skin: Negative for injury, rash, and discoloration, Neuro: Negative for headache, weakness, numbness, tingling, and seizure, Psych: Negative for depression, anxiety, suicide ideation, homicidal ideation, and hallucinations, Allergy/Immunology: Negative for hives, rash, and allergies, Endocrine: Negative for neck swelling, polydipsia, polyuria, polyphagia, and marked weight changes, Hematologic/Lymphatic: Negative for swollen nodes, abnormal bleeding, and unusual bruising. 00:46 MS/extremity: Positive for deformity, pain. Exam: 00:46 Constitutional: This is a well developed, well nourished patient who is awake, alert, raphael and in no acute distress. Head/Face: Normocephalic, atraumatic. Eyes: Pupils equal round and reactive to light, extra-ocular motions intact. Lids and lashes normal. Conjunctiva and sclera are non-icteric and not injected. Cornea within normal limits. Periorbital areas with no swelling, redness, or edema. ENT: Nares patent. No nasal discharge, no septal abnormalities noted. Tympanic membranes are normal and external auditory canals are clear. Oropharynx with no redness, swelling, or masses, exudates, or evidence of obstruction, uvula midline. Mucous membranes moist. Neck: Trachea midline, no thyromegaly or masses palpated, and no cervical lymphadenopathy. Supple, full range of motion without nuchal rigidity, or vertebral point tenderness. No Meningismus. Chest/axilla: Normal chest wall appearance and motion. Nontender with no deformity. No lesions are appreciated. Cardiovascular: Regular rate and rhythm with a normal S1 and S2. No gallops, murmurs, or rubs. Normal PMI, no JVD. No pulse deficits. Respiratory: Lungs have equal breath sounds bilaterally, clear to auscultation and percussion. No rales, rhonchi or wheezes noted. No increased work of breathing, no retractions or nasal flaring. Abdomen/GI: Soft, non-tender, with normal bowel sounds. No distension or tympany. No guarding or rebound. No evidence of tenderness throughout. Back: No spinal tenderness. No costovertebral tenderness. Full range of motion. Male : Normal genitalia with no discharge or lesions. Skin: Warm, dry with normal turgor. Normal color with no rashes, no lesions, and no evidence of cellulitis. Neuro: Awake and alert, GCS 15, oriented to person, place, time, and situation. Cranial nerves II-XII grossly intact. Motor strength 5/5 in all extremities. Sensory grossly intact. Cerebellar exam normal. Normal gait. Psych: Awake, alert, with orientation to person, place and time. Behavior, mood, and affect are within normal limits. 00:46 Musculoskeletal/extremity: ROM: full passive range of motion, limited active range of motion due to pain, Perfusion: the patient is cold, pale, Severe pain noted. Compartment Syndrome exam of affected extremity: is normal. 01:20 ECG was reviewed by the Attending Physician. raphael Vital Signs: 00:34 BP 203 / 108; Pulse 95; Resp 18 S; Temp 98.2; Pulse Ox 100% on R/A; Weight 79.38 kg al4 (R); Height 5 ft. 8 in. (172.72 cm); Pain 10/10; 01:07 BP 195 / 115; Pulse 100; Resp 14 S; Pulse Ox 98% on R/A; al4 01:15 BP 201 / 120; Pulse 102; Resp 15; Pulse Ox 100% on R/A; mk 01:30 BP 205 / 104; Pulse 102; Resp 15; Pulse Ox 99% on R/A; mk 01:45 BP 175 / 121; Pulse 96; Resp 23; Pulse Ox 98% on R/A; mk 02:00 BP 192 / 111; Pulse 91; Resp 17; Pulse Ox 98% on R/A; mk 02:30 BP 184 / 89; Pulse 91; Resp 14; Pulse Ox 99% on R/A; mk 00:34 Body Mass Index 26.61 (79.38 kg, 172.72 cm) al4 MDM: 00:37 Patient medically screened. raphael 00:50 Differential diagnosis: tendonitis. Data reviewed: vital signs, nurses notes, lab test raphael result(s), EKG, radiologic studies. Data interpreted: hall monitor: rate is 95 beats/min, rhythm is regular, Pulse oximetry: on room air is 100 %. Test interpretation: by ED physician or midlevel provider: ECG, plain radiologic studies. Counseling: I had a detailed discussion with the patient and/or guardian regarding: the historical points, exam findings, and any diagnostic results supporting the discharge/admit diagnosis, the presence of at least one elevated blood pressure reading (>120/80) during this emergency department visit, lab results, radiology results, the need to transfer to another facility. 12/18 00:45 Order name: Basic Metabolic Panel; Complete Time: :47 [facility] 12/18 00:45 Order name: CBC with Diff; Complete Time: :47 [facility] 12/18 00:45 Order name: LFT's; Complete Time: :47 [facility] 12/18 00:45 Order name: Magnesium; Complete Time: :47 [facility] 12/18 00:45 Order name: NT PRO-BNP; Complete Time: :47 [facility] 12/18 00:45 Order name: PT-INR; Complete Time: :47 [facility] 12/18 00:45 Order name: Troponin HS; Complete Time: :47 [facility] 12/18 00:45 Order name: XRAY Chest (1 view) [facility] 12/18 00:45 Order name: SARS-COV-2 RT PCR (Document "Date of Onset" if Symptomatic) [facility] 12/18 00:45 Order name: EKG; Complete Time: 00:46 [facility] 12/18 00:45 Order name: Cardiac monitoring; Complete Time: 01:05 [facility] 12/18 00:45 Order name: EKG - Nurse/Tech; Complete Time: 01:05 [facility] 12/18 00:45 Order name: IV Saline Lock; Complete Time: 00:58 [facility] 12/18 00:45 Order name: Labs collected and sent; Complete Time: 01:05 [facility] 12/18 00:45 Order name: O2 Per Protocol; Complete Time: 00:46 [facility] 12/18 00:45 Order name: O2 Sat Monitoring; Complete Time: 00:46 [facility] 12/18 00:45 Order name: Misc. Order: warm blanket right arm; Complete Time: 01:05 [facility] 12/18 02:07 Order name: NPO; Complete Time: 03:51 [facility] EC:20 Rate is 99 beats/min. Rhythm is regular. QRS Thomson is Normal. [place] interval is normal. QRS raphael interval is normal. QT interval is normal. No Q waves. T waves are Normal. No ST changes noted. Clinical impression: Normal ECG and No evidence of ischemia. Interpreted by me. Reviewed by me. Administered Medications: 00:37 Drug: Nitro-Bid (nitroglycerin) Ointment 2 % 1 inches Route: Transdermal; Site: mk anterior chest wall; 01:20 Drug: morphine 2 mg Route: IVP; Site: left antecubital; mk 01:49 Drug: morphine 2 mg Route: IVP; Site: left antecubital; mk 02:00 Follow up: Response: No adverse reaction mk 01:49 Drug: Zofran (Ondansetron) 4 mg Route: IVP; Site: left antecubital; mk 02:00 Follow up: Response: No adverse reaction mk 02:07 Drug: Heparin (MD Drip) 12 units/kg/hr - (HEParin 66393 units, D5W 500 ml) {Co-Signature: al4 (Jonel Russell).} Route: IV; Rate: calculated rate; Site: right antecubital; 02:28 Follow up: Response: No adverse reaction mk 02:20 Drug: Zofran (Ondansetron) 4 mg Route: IVP; Site: left hand; mk 03:49 Follow up: Response: No adverse reaction; lifelight to f/u mk 02:21 Drug: morphine 4 mg Route: IVP; Site: left wrist; mk 03:48 Follow up: Response: No adverse reaction; lifelight to f/u mk 02:29 Drug: Pepcid (famotidine) 20 mg Route: IVP; Site: left wrist; mk 03:48 Follow up: Response: Other; lifelight to f/u Disposition Summary: 12/18/21 00:55 Transfer Ordered Transfer Location: [facility] raphael Reason: Higher level of care raphael Condition: Serious raphael Problem: new rpahael Symptoms: have improved raphael Accepting Physician: YOAV(12/18/21 02:35) shashank Diagnosis - 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
[2021-12-18 01:11] LABS: Absolute Lymphocytes (CBC) 1.6 K/uL (0.7-4.9); Lymphocytes % 22.5 % (15.3-44.8); MPV 9.4 fL (7.6-11.3); RBC Red Blood Cell Count 3.72 M/uL (4.33-5.43)
[2021-12-18 01:12] LABS: Protime INR 1.23
[2021-12-18] MEDS ORDERED: MORPHINE 4 MG/ML SYR ONE ×2 (01:24→02:19)
[2021-12-18] MEDS ORDERED: ONDANSETRON 4 MG/2 ML VIAL ONE ×2 (01:25→02:19)
[2021-12-18] MEDS ORDERED: NITROGLYCERIN 0.4 MG/TAB SL ONE (01:25)
[2021-12-18] MEDS ORDERED: NITROGLYCERIN 1 GM PKT TD ONE (01:31)
[2021-12-18 01:45] LABS: ALT/SGPT 17 U/L (12-78); AST/SGOT 12 U/L (15-37); Alkaline Phosphatase 104 U/L (45-117); BUN Blood Urea Nitrogen 17 mg/dL (7-18); Bicarbonate 22 mmol/L (21-32); Bilirubin Direct < 0.1 mg/dL (0-0.2); Bilirubin Total 0.2 mg/dL (0.2-1.0); Glucose Level 270 mg/dL (74-106); NT PRO-BNP 261 pg/mL (<125); Potassium 4.5 mmol/L (3.5-5.1); Protein, Total 7.4 g/dL (6.4-8.2); Sodium Level 135 mmol/L (136-145)
[2021-12-18 01:46] LABS: Magnesium 1.2 mg/dL (1.8-2.4)
[2021-12-18] MEDS ORDERED: FAMOTIDINE 20 MG/2 ML VIAL IV ONE (02:19)
[2021-12-18] MEDS ORDERED: HEPARIN/D5W 25,000 UNIT/500 ML BAG IV ONE (02:20)
[2021-12-18 02:40] VITALS: TEMP 98.2
[2021-12-18 02:41] VITALS: BP 195/115; O2SAT 98
--- NOTE | 2021-12-18 07:33 | RAD REPORT ---
EXAM DESCRIPTION: RAD - Chest Single View - 12/18/2021 1:00 am CLINICAL HISTORY: COUGH COMPARISON: Chest Single View dated 02/03/2019; Chest Single View dated 12/21/2017; Chest Single View d ated 10/19/2017; Chest Single View dated 02/24/2017 FINDINGS: Lines: Surgical changes at the base of the neck. Lungs: No evidence of edema or pneumonia. Pleural: No significant pleural effusions or pneumothorax. Cardiac: The heart size is within normal limits. Bones: No acute fractures. Other: IMPRESSION: No acute cardiopulmonary disease.
== END 2021-12-18 02:35 ==
LOC: ER 00:31
DX: I74.2 Embolism and thrombosis of arteries of the upper extremities (principal); E11.65 Type 2 diabetes mellitus with hyperglycemia; I12.9 Hypertensive chronic kidney disease with stage 1 through stage 4 chronic kidney disease, or unspecified chronic kidney disease; N18.9 Chronic kidney disease, unspecified; D64.9 Anemia, unspecified; Z95.1 Presence of aortocoronary bypass graft; Z20.822 Contact with and (suspected) exposure to COVID-19
CPT/HCPCS: 93005; 85025; 80048; 36415; 83735; 85610; 80076; 84484; 83880; 71045; 99285; U0003; J1644; J2405 ×2

== ENCOUNTER 2023-10-05 09:17 | Emergency (ER) | payer OTHER ==
[2023-10-05 10:34] LABS: Absolute Lymphocytes (CBC) 0.9 K/uL (0.7-4.9); Hematocrit 22.5 % (39.6-49.0); Lymphocytes % 13.7 % (15.3-44.8); MCV 61.6 fL (80-100); MPV 8.3 fL (7.6-11.3); Platelets 264 thou/uL (152-406); RBC Red Blood Cell Count 3.65 M/uL (4.33-5.43)
[2023-10-05 10:41] LABS: Protime INR 1.55
[2023-10-05 10:51] LABS: Albumin 3.6 g/dL (3.4-5.0); Bilirubin Direct 0.1 mg/dL (0-0.2); Bilirubin Indirect, Calculated 0.3 mg/dL (0.2-0.8); Bilirubin Total 0.4 mg/dL (0.2-1.0); Protein, Total 8.2 g/dL (6.4-8.2)
--- OUTSIDE RECORDS SUMMARY | 2023-10-05 11:15 | XMS REPORT | Continuity of Care Document ---
:1955 Author Organization [facility] t Address [address] [place] [address] Care Team Providers Name Role Phone MELANIE AQUINO Attending Clinician Unavailable DICK CHAPMAN Attending Clinician Unavailable MELANIE AQUINO Admitting Clinician Unavailable DICK CHAPMAN Admitting Clinician Unavailable Payers Payer Name Policy Type Policy Number Effective Date Expiration Date S thompson MEDICARE A B [id number] 2018 00:00:00 [employer] [id number] 2019 CARD AND PC3 00:00:00 Problems Condition Condition Condition Status Onset Resolution Last Treating Co mments Source Name Details Category Date Date Treatment Clinician Date 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, paralysis, 7-17 [facility]sa kes unilateral unilateral 00:00: Me dical 00 Center Ischemia Ischemia Disease [facility] Allergies, Adverse Reactions, Alerts Allergy Allergy Status Severity Reaction(s) Onset Inactive Treating Comm ents Source Name Type Date Date Clinician PROPOFOL Allergy Active Other [facility] 00:[facility]: [facility] 00 Center NO KNOWN Allergy Active [facility] Social History Social Habit Start Date Stop Date Quantity Comments Source History SDOH [facility] Alcohol Binge Medical Lita [facility] History of tobacco Cigarette Smoker [facility] use Medical Center History SDWA [facility] Alcohol Std Drinks [facility] Sexual orientation [facility] Alcohol intake 2020-05-20 2020-05-[address] [facility] 00:00:00 00:00:00 non-drinker of Medical Ce nter alcohol (finding) Cigarettes smoked 2020-05-16 2020-05-[address] [facility] current (pack per 00:00:00 00:00:00 Medical Center day) - Reported Tobacco use and 2020-05-16 2020-05-16 Smokeless [address] [facility] exposure 00:00:00 00:00:00 non-user Medical Center History SDOH 2020-05-16 2020-05-[address] [facility] Alcohol Frequency 00:00:00 00:00:00 [facility] Tobacco Comment 2020-05-16 2020-05-16 quit 01/[address] [facility] 00:00:00 00:00:00 [facility] Sex Assigned At [address] [facility] Lyssa aguilars 00:00:00 00:00:00 [facility] Center Smoking Status Start Date Stop Date Source Ex-smoker 2020-05-16 00:00:00 2020-05-16 00:00:00 [facility] Medications Ordered Filled Start Stop Current Ordering Indication Dosage Frequency Signature Comments Components Source Medication Medication Date Date Medication? Clinician (SIG) Name Name carvedilol Yes 12.5mg Q.5D Take 12.[address] (COREG) 25 7-17 mg by [facility] MG tablet 19:00: mouth 2 Medic al 09 (two) Center times daily . omeprazole 2019-0 Yes 40mg QD Take [address] (PRILOSEC) 7-17 by mouth [facility] 40 MG 19:00: daily. Medical capsule 09 Center atorvastati 2019-0 Yes 40mg Take [address] [facility] (LIPITOR) 7-17 by mouth Luke s 40 MG 19:00: every Medical tablet 09 other day Center . finasteride 2020-0 Yes 5mg QD Take [address] (PROSCAR) 5 7-17 by mouth Luke s mg tablet 19:00: daily. Medica l 09 Center metFORMIN 2019-0 Yes 500mg Take [address] (GLUCOPHAGE 7-17 mg by [facility] ) 500 MG 19:00: mouth 2 Medica l tablet 09 (two) Center times daily with breakfast and dinner. allopurinol 2020-0 Yes 100mg QD Take [address] (ZYLOPRIM) 7-17 mg by [facility] 100 MG 19:00: mouth Medical tablet 09 daily. Center apixaban 2020-0 Yes 5mg Q.5D Take [address] (ELIQUIS) 5 7-17 by mouth 2 Lyssa kes mg Tab 19:00: (two) Medical tablet 09 times Center daily. losartan-hy 2020-0 Yes 1{tbl} QD Take [address] droCHLOROth 7-17 tablet by Stephen es iazide 19:00: mouth Medical (HYZAAR) 09 daily. Center 50-12.5 mg per tablet carvedilol 2020-0 Yes 12.5mg Q.5D Take 12.[address] (COREG) 25 7-17 mg by [facility] MG tablet 19:00: mouth 2 Medic al 09 (two) Center times daily . omeprazole 2020-0 Yes 40mg QD Take [address] (PRILOSEC) 7-17 by mouth [facility] 40 MG 19:00: daily. Medical capsule 09 Center atorvastati 2020-0 Yes 40mg Take [address] [facility] (LIPITOR) 7-17 by mouth Luke s 40 MG 19:00: every Medical tablet 09 other day Center . finasteride 2020-0 Yes 5mg QD Take [address] (PROSCAR) 5 7-17 by mouth Luke s mg tablet 19:00: daily. Medica l 09 Center metFORMIN 2020-0 Yes 500mg Take [address] (GLUCOPHAGE 7-17 mg by [facility] ) 500 MG 19:00: mouth 2 Medica l tablet 09 (two) Center times daily with breakfast and dinner. allopurinol 2020-0 Yes 100mg QD Take [address] (ZYLOPRIM) 7-17 mg by [facility] 100 MG 19:00: mouth Medical tablet 09 daily. Center apixaban 2020-0 Yes 5mg Q.5D Take [address] (ELIQUIS) 5 7-17 by mouth 2 Lyssa kes mg Tab 19:00: (two) Medical tablet 09 times Center daily. losartan-hy 2020-0 Yes 1{tbl} QD Take [address] droCHLOROth 7-17 tablet by Stephen es iazide 19:00: mouth Medical (HYZAAR) 09 daily. Center 50-12.5 mg per tablet Vital Signs Vital Name Observation Time Observation Value Comments Source HEIGHT 2020-05-01 00:00:00 172.7 cm WEIGHT 2020-05-01 00:00:00 84.2 kg HEIGHT 2020-05-01 00:00:00 172.7 cm WEIGHT 2020-05-01 00:00:00 84.2 kg Procedures This patient has no known procedures. Plan of Care Planned Activity Planned Date Details Comments Source Future Scheduled 2023-07-[address] [facility] Test 00:00:00 (Season Ended) [code = Medic al Center INFLUENZA VACCINE (Season Ended)] Future Scheduled 2022-11-[address] [facility] Test 00:00:00 (12+) [code = Medical Center DEPRESSION SCREENING (12+)] Future Scheduled 2022-11-01 FALLS RISK SCREENING [facility] Test 00:00:00 [code = FALLS RISK Medical C enter SCREENING] Future Scheduled 2021-05-[address] [facility] Test 00:00:00 Counseling and Medical Cente r Screening (12+) [code = Tobacco Cessation Counseling and Screening (12+)] Future Scheduled 2019-10-[address] [facility] Test 00:00:00 WELLNESS (YEAR 2 or Medical Center FIRST YEAR if no IPPE) [code = MEDICARE ANNUAL WELLNESS (YEAR 2 or FIRST YEAR if no IPPE)] Future Scheduled 2018 PNEUMOCOCCAL 65+ YRS ([address] [facility] Test 00:00:00 - PCV) [code = Medical Cente r PNEUMOCOCCAL 65+ YRS (1 - PCV)] Future Scheduled 2003 SHINGLES VACCINES ([address] [facility] Test 00:00:00 2) [code = SHINGLES Medical Center VACCINES (1 of 2)] Future Scheduled 1972 DTAP/TDAP/TD VACCINES [facility] 00:00:00 (1 - Tdap) [code = Medical C enter DTAP/TDAP/TD VACCINES (1 - Tdap)] Future Scheduled 1971 HEPATITIS C SCREENING [facility] 00:00:00 [code = HEPATITIS C Medical Center SCREENING] Future Scheduled 1956-04-08 COVID-19 VACCINE (#1) [facility] Test 00:00:00 [code = COVID-[address] VACCINE (#1)] Future Scheduled 1953 CT Colonography (combo) [facility] Test 00:00:00 [code = CT Colonography [facility] (combo)] Future Scheduled 1955 Screening for malignant [facility] Test 00:00:00 neoplasm of colon Medical Ce nter (procedure) [code = 018080231] Future Scheduled 1955 Screening for malignant [facility] Test 00:00:00 neoplasm of colon Medical Ce nter (procedure) [code = 149845699] Future Scheduled 1955 Screening for malignant [facility] Test 00:00:00 neoplasm of colon Medical Ce nter (procedure) [code = 088527869] Future Scheduled 1955 Screening for malignant [facility] Test 00:00:00 neoplasm of colon Medical Ce nter (procedure) [code = 105983973] Future Scheduled 1955 Sigmoidoscopy [code = [facility] Test 00:00:00 Sigmoidoscopy] Medical Cente r Encounters Start End Encounter Admission Attending Care Care Encounter Source Date/Time Date/Time Type Type Clinicians Facility Department ID 2021-08-05 Outpatient KENIA BRANDON Surgery [id number] [facility] 22:27:59 MELANIE 2020-05-16 2020-05-16 Outpatient [facility] [id number] [facility] 00:00:00 00:00:00 Results Test Description Test Time Test Comments Results Result Comments Source POCT-GLUCOSE METER 2020-05-17 17:18:00 Test Item Value Reference Range Interpretation Comme nts POC-GLUCOSE METER (BEAKER) 184 mg/dL 70-110 H : TESTED AT [facility] [address] [facility] (test code = 1538) RA[place]ER [place] [id number]: Leak Hunter/Techni adonis ID = [id number] for KLAUS SHERIDAN BASIC METABOLIC [id number] 10:20:00 Test Item Value Reference Range Interpretation [...] S NOT APPLICABLE FOR DIALYSIS PATIEN TS. Leak Hunter ID - [place] [id number] 10:01:00 Test Item Value Reference Range Interpretation Comments HEMOGLOBIN (BEAKER) (test code = 12.2 GM/DL 13.7-17.5 L 410) Leak Hunter ID - [id number] 08:23:00 Test Item Value Reference Range Interpretation Comments POC-GLUCOSE METER 170 mg/dL 70-110 H : TESTED A T [facility] [address] (BEAKER) (test code = [address], 1538) [id number]: Leak Hunter/Techni adonis ID = [id number] for HELEN FERGUSON [id number] 22:53:00 Test Item Value Reference Range Interpretation Comments PARTIAL THROMBOPLASTIN TIME 65.0 seconds 22.5-36.0 H (BEAKER) (test code = 760) BASIC METABOLIC [id number] 22:45:00 Test Item Value Reference Range Interpretation [...] PATIEN TS. CBC W/PLT COUNT & AUTO [id number] 22:35:00 Test Item Value Reference Range Interpretation [...] (BEAKER) (test code = 2801) BASIC METABOLIC [id number] 20:47:00 Test Item Value Reference Range Interpretation [...] S NOT APPLICABLE FOR DIALYSIS PATIEN TS. [id number] 20:46:00 Test Item Value Reference Range Interpretation [...]
[2023-10-05 12:18] LABS: White Blood Cell Scan OK (OK)
[2023-10-05 12:19] LABS: Blood Morphology Comment NOTED (NOT SEEN)
[2023-10-05 12:20] LABS: Anisocytosis 2+; Hypochromasia 2+; Platelet Estimate ADEQ
[2023-10-05] MEDS ORDERED: NA CHLORIDE 0.9% 250 ML ONE ×2 (12:58→16:53)
--- NOTE | 2023-10-05 17:32 | EDPHYS ---
Physician Documentation [facility] Name: Ba Ortiz Age: 67 yrs Sex: Male : 1955 Arrival Date: 10/05/2023 Time: 09:17 Bed 2 Private MD: ED Physician Daniel Moeller HPI: 10/05 10:07 This 67 yrs old Male presents to ER via Wheelchair with complaints of Abnormal Lab rt Results. 10:07 Patient presents to the ED with a hemoglobin of 6.4 on outpatient labs. He states that rt he has been feeling generally weak for several months now. Denies bleeding, rectal bleeding, hematemesis, hematochezia. Denies any bleeding at this time. Symptoms are moderate in severity, no other aggravating or alleviating factors.. Historical: - Allergies: : No Known Allergies; ll1 - PMHx: Hypertension; hiatal hernia; Alcoholism; PAD; Gout; Diabetes - NIDDM; BPH; Arthritis; ll1 CVA; GERD; Hyperlipidemia; - PSHx: bypass surgery x 1 left side; bypass surgery x 2 right side; ll1 - Immunization history:: Adult Immunizations up to date. - Social history:: Smoking status: Patient denies any tobacco usage or history of. - Family history:: not pertinent. ROS: 10:07 Constitutional: Negative for fever, chills, and weight loss, Cardiovascular: Negative rt for chest pain, palpitations, and edema, Respiratory: Negative for shortness of breath, cough, wheezing, and pleuritic chest pain, Abdomen/GI: Negative for abdominal pain, nausea, vomiting, diarrhea, and constipation, Skin: Negative for injury, rash, and discoloration, 10:07 Neuro: Positive for weakness, Negative for altered mental status, Exam: 10:07 Head/Face: Normocephalic, atraumatic. Chest/axilla: Normal chest wall appearance and rt motion. Nontender with no deformity. No lesions are appreciated. Cardiovascular: Regular rate and rhythm with a normal S1 and S2. No gallops, murmurs, or rubs. Normal PMI, no JVD. No pulse deficits. Respiratory: Lungs have equal breath sounds bilaterally, clear to auscultation and percussion. No rales, rhonchi or wheezes noted. No increased work of breathing, no retractions or nasal flaring. Abdomen/GI: Soft, non-tender, with normal bowel sounds. No distension or tympany. No guarding or rebound. No evidence of tenderness throughout. Skin: Warm, dry with normal turgor. Normal color with no rashes, no lesions, and no evidence of cellulitis. MS/ Extremity: Pulses equal, no cyanosis. Neurovascular intact. Full, normal range of motion. Neuro: Awake and alert, GCS 15, oriented to person, place, time, and situation. Cranial nerves II-XII grossly intact. Motor strength 5/5 in all extremities. Sensory grossly intact. Cerebellar exam normal. Normal gait. 10:07 Constitutional: The patient appears Pale, no acute distress Vital Signs: 09:44 BP 158 / 78; Pulse 82; Resp 18; Pulse Ox 100% ; Weight 70 kg; ph 09:45 Weight 80 kg; Height 5 ft. 7 in. ; ld1 09:47 Temp 98.4(O); ld1 10:11 BP 144 / 72; Pulse 93; Resp 22; Pulse Ox 100% on R/A; ld1 11:13 BP 151 / 70; Pulse 81; Resp 18; Pulse Ox 100% on R/A; ph 11:25 BP 151 / 70; Pulse 85; tm6 12:07 BP 140 / 69; Pulse 83; Resp 26; tm6 12:47 BP 152 / 72; Pulse 82; Resp 19; Pulse Ox 100% on R/A; tm6 13:32 BP 135 / 68; Pulse 79; Resp 21; Pulse Ox 100% on R/A; tm6 14:41 BP 125 / 68; Pulse 75; Resp 18; Pulse Ox 100% ; ld1 15:30 BP 134 / 68; Pulse 72; Resp 18; Pulse Ox 99% on R/A; ld1 16:31 BP 156 / 81; Pulse 73; Resp 20; Pulse Ox 97% on R/A; tm6 17:05 BP 156 / 81; Pulse 72; Resp 20; Pulse Ox 100% on R/A; ld1 18:38 BP 160 / 77; Pulse 80; Resp 18; Temp 97.1; Pulse Ox 100% on R/A; ph 09:45 Body Mass Index 27.62 (80.00 kg, 170.18 cm) ld1 MDM: 09:33 Patient medically screened. rt 13:45 Differential Diagnosis Anemia, iron deficiency versus chronic disease present versus rt acute blood loss. Data reviewed: vital signs, nurses notes. Consideration of Admission/Observation Escalation of care including admission/observation considered. No active hemorrhage, believe that this has been a slow process over the past several months. Patient not likely to benefit from admission to the hospital, does have close outpatient follow-up already scheduled. Will give patient 2 units of blood, discharged with strict return precautions.. I considered the following discharge prescriptions or medication management in the emergency department Medications were administered in the Emergency Department. See MAR. Test considered but Not performed: CT: No abdominal pain, CT scan of the abdomen dated. Care significantly affected by the following chronic conditions: Hypertension. Counseling: I had a detailed discussion with the patient and/or guardian regarding the historical points, exam findings, and any diagnostic results supporting the discharge/admit diagnosis, lab results, the need for outpatient follow up. Response to treatment: the patient's symptoms have markedly improved after treatment. 10/05 09:41 Order name: Type And Screen rt 10/05 09:41 Order name: BMP; Complete Time: 10:59 rt 10/05 09:41 Order name: LFT's; Complete Time: 10:59 rt 10/05 09:41 Order name: CBC with Diff rt 10/05 09:41 Order name: PT-INR; Complete Time: 10:59 rt 10/05 09:41 Order name: Ptt, Activated; Complete Time: 10:59 rt 10/05 11:20 Order name: CBC Smear Scan EDMS 10/05 12:21 Order name: Bb Add On bd 10/05 13:11 Order name: Packed RBC Leukored EDMS 10/05 13:23 Order name: ABO/RH no charge EDMS Administered Medications: No medications were administered Disposition Summary: 10/05/23 17:32 Discharge Ordered Notes: Location: Home rt Problem: an ongoing problem rt Symptoms: have improved rt Condition: Stable rt Diagnosis - Anemia, unspecified rt Followup: rt - With: Private Physician - When: 2 - 3 days - Reason: Discharge Instructions: - Discharge Summary Sheet rt - Anemia rt - Blood Transfusion, Adult rt - Blood Transfusion, Adult, Care After rt Forms: - Medication Reconciliation Form rt - Thank You Letter rt - Antibiotic Education rt - Prescription Opioid Use rt - Patient Portal Instructions rt - Leadership Thank You Letter rt Signatures: Ayaka Amaral RN RN ll1 Daniel Moeller MD MD rt
--- NOTE | 2023-10-05 17:32 | ER ---
Nurse's Notes [facility] Name: Ba Ortiz Age: 67 yrs Sex: Male : 1955 Arrival Date: 10/05/2023 Time: 09:17 Bed 2 Private MD: Diagnosis: Anemia, unspecified Presentation: 10/05 09:29 Chief complaint: Patient states: Low HGB. Sent in for further eval. Coronavirus screen: ll1 Client denies travel out of the [place] in the last 14 days. At this time, the client does not indicate any symptoms associated with coronavirus-19. Ebola Screen: Patient denies travel to an Ebola-affected area in the 21 days before illness onset. Initial Sepsis Screen: Does the patient meet any 2 criteria? No. Patient's initial sepsis screen is negative. Does the patient have a suspected source of infection? No. Patient's initial sepsis screen is negative. Risk Assessment: Do you want to hurt yourself or someone else? Patient reports no desire to harm self or others. 09:29 Method Of Arrival: Wheelchair [facility] 09:29 Acuity: BETHEL 2 [facility] 09:44 Onset of symptoms was October 05, 2023. ph Historical: - Allergies: 09:28 No Known Allergies; ll1 - PMHx: 09:28 Hypertension; hiatal hernia; Alcoholism; PAD; Gout; Diabetes - NIDDM; BPH; Arthritis; ll1 CVA; GERD; Hyperlipidemia; - PSHx: 09:28 bypass surgery x 1 left side; bypass surgery x 2 right side; ll1 - Immunization history:: Adult Immunizations up to date. - Social history:: Smoking status: Patient denies any tobacco usage or history of. - Family history:: not pertinent. Screenin:44 [facility] ED Fall Risk Assessment (Adult) History of falling in the last 3 months, ph including since admission No falls in past 3 months (0 pts) Confusion or Disorientation No (0 pts) Intoxicated or Sedated No (0 pts) Impaired Gait No (0 pts) Mobility Assist Device Used No (0 pt) Altered Elimination No (0 pt) Score/Fall Risk Level 0 - 2 = Low Risk Oriented to surroundings, Maintained a safe environment, Provided non-skid footwear, Hourly rounding (assess needs \T\ fall precautionary measures) done. Abuse screen: Denies threats or abuse. Denies injuries from another. Nutritional screening: No deficits noted. Tuberculosis screening: No symptoms or risk factors identified. Assessment: 10:52 General: Appears in no apparent distress. Behavior is calm, cooperative. Pain: Denies tm6 pain. Neuro: Level of Consciousness is awake, alert, obeys commands, Oriented to person, place, time, situation. Cardiovascular: Capillary refill < 3 seconds Patient's skin is warm and dry. Respiratory: Airway is patent Respiratory effort is even, unlabored, Respiratory pattern is regular, symmetrical. GI: Abdomen is flat, non-distended. : No signs and/or symptoms were reported regarding the genitourinary system. EENT: No signs and/or symptoms were reported regarding the EENT system. Derm: No signs and/or symptoms reported regarding the dermatologic system. Musculoskeletal: No signs and/or symptoms reported regarding the musculoskeletal system. 11:25 Reassessment: Patient appears in no apparent distress at this time. No changes from tm6 previously documented assessment. Patient and/or family updated on plan of care and expected duration. Pain level reassessed. Patient is alert, oriented x 3, equal unlabored respirations, skin warm/dry/pink. 12:07 Reassessment: Patient appears in no apparent distress at this time. No changes from tm6 previously documented assessment. Patient and/or family updated on plan of care and expected duration. Pain level reassessed. Patient is alert, oriented x 3, equal unlabored respirations, skin warm/dry/pink. 12:47 Reassessment: Patient appears in no apparent distress at this time. No changes from tm6 previously documented assessment. Patient and/or family updated on plan of care and expected duration. Pain level reassessed. Patient is alert, oriented x 3, equal unlabored respirations, skin warm/dry/pink. 14:00 Reassessment: Patient appears in no apparent distress at this time. No changes from ld1 previously documented assessment. Patient is alert, oriented x 3, equal unlabored respirations, skin warm/dry/pink. 16:00 Reassessment: Patient appears in no apparent distress at this time. No changes from ld1 previously documented assessment. Patient and/or family updated on plan of care and expected duration. Pain level reassessed. Patient is alert, oriented x 3, equal unlabored respirations, skin warm/dry/pink. Second unit of PRBC started now. Pt denies pain. 18:37 Reassessment: Patient appears in no apparent distress at this time. Patient and/or ph family updated on plan of care and expected duration. Pain level reassessed. Patient is alert, oriented x 3, equal unlabored respirations, skin warm/dry/pink. 2nd unit PRBCs complete, pt d/c home. Vital Signs: 09:44 BP 158 / 78; Pulse 82; Resp 18; Pulse Ox 100% ; Weight 70 kg; ph 09:45 Weight 80 kg; Height 5 ft. 7 in. ; ld1 09:47 Temp 98.4(O); ld1 10:11 BP 144 / 72; Pulse 93; Resp 22; Pulse Ox 100% on R/A; ld1 11:13 BP 151 / 70; Pulse 81; Resp 18; Pulse Ox 100% on R/A; ph 11:25 BP 151 / 70; Pulse 85; tm6 12:07 BP 140 / 69; Pulse 83; Resp 26; tm6 12:47 BP 152 / 72; Pulse 82; Resp 19; Pulse Ox 100% on R/A; tm6 13:32 BP 135 / 68; Pulse 79; Resp 21; Pulse Ox 100% on R/A; tm6 14:41 BP 125 / 68; Pulse 75; Resp 18; Pulse Ox 100% ; ld1 15:30 BP 134 / 68; Pulse 72; Resp 18; Pulse Ox 99% on R/A; ld1 16:31 BP 156 / 81; Pulse 73; Resp 20; Pulse Ox 97% on R/A; tm6 17:05 BP 156 / 81; Pulse 72; Resp 20; Pulse Ox 100% on R/A; ld1 18:38 BP 160 / 77; Pulse 80; Resp 18; Temp 97.1; Pulse Ox 100% on R/A; ph 09:45 Body Mass Index 27.62 (80.00 kg, 170.18 cm) ld1 ED Course: 09:24 Patient arrived in ED. mg5 09:30 Triage completed. ll1 09:31 Daniel Moeller MD is Attending Physician. rt 09:44 Arm band placed on Patient placed in an exam room. ph 09:47 Missed attempt(s): 20 gauge in left upper arm. ld1 10:06 Missed attempt(s): 22 gauge in left antecubital area. ld1 10:06 Missed attempt(s): 22 gauge in left forearm. ld1 10:08 Ana Bruce, RN is Primary Nurse. tm6 10:28 Inserted saline lock: 22 gauge in right antecubital area, using aseptic technique. ld1 Blood collected. 10:32 Patient has correct armband on for positive identification. Bed in low position. Call ph light in reach. Side rails up X 1. Pulse ox on. NIBP on. Door closed. Noise minimized. Warm blanket given. 10:32 BMP Sent. ph 10:32 LFT's Sent. ph 10:32 CBC with Diff Sent. ph 10:32 PT-INR Sent. ph 10:32 Ptt, Activated Sent. ph 10:32 Type And Screen Sent. ph 18:38 No provider procedures requiring assistance completed. IV discontinued, intact, ph bleeding controlled, No redness/swelling at site. Pressure dressing applied. Administered Medications: No medications were administered Medication: 09:44 VIS not applicable for this client. ph Outcome: 17:32 Discharge ordered by . rt 18:39 Discharged to home ambulatory, ph 18:39 Condition: good 18:39 Discharge instructions given to patient, Instructed on discharge instructions, follow up and referral plans. Demonstrated understanding of instructions, follow-up care, 18:39 Patient left the ED. ph Signatures: Kari Argueta, RN Ayaka Lerner ph, CRISTIAN RN ll1 Marily Conley RN RN ld1 Daniel Moeller MD MD rt Gardner Katie mg5 Ana Bruce, RN RN tm6
[2023-10-05 19:10] VITALS: O2SAT 100
[2023-10-05 19:12] VITALS: BP 160/77; TEMP 97.1
== END 2023-10-05 18:39 | disposition home or self-care (01) ==
LOC: ER 09:17
PROC: 30233N1 Transfusion of Nonautologous Red Blood Cells into Peripheral Vein, Percutaneous Approach (ICD-10-PCS; principal; 2023-10-05)
DX: D64.9 Anemia, unspecified (principal); I10 Essential (primary) hypertension; E11.9 Type 2 diabetes mellitus without complications; F10.20 Alcohol dependence, uncomplicated; Z95.1 Presence of aortocoronary bypass graft
CPT/HCPCS: 85025; 80048; 36415; 86900; 86850; 85610; 86901; 80076; 85730; 86920 ×2; 99284; 36430; P9016 ×2; J7050 ×2

== ENCOUNTER → 2023-11-28 | Emergency (ER) | payer OTHER ==
[~2023-11-28] MED LIST: Magnesium Sulfate 2gm IVPB 2 G/50 ML BAG IV ONE
--- NOTE | 2023-11-28 19:07 | RAD REPORT ---
EXAM DESCRIPTION: CT - [id number] - 11/28/2023 6:53 pm CLINICAL HISTORY: Trauma, head and neck injury. HEADACHE COMPARISON: No comparisons TECHNIQUE: Axial 5 mm thick images of the head were obtained. Axial 2 mm thick images of the cervical spine were obtained with sagittal and coronal reconstruction images generated and reviewed. All CT scans are performed using dose optimization technique as appropriate and may include automated exposure control or mA/KV adjustment according to patient size. FINDINGS: CT HEAD WITHOUT CONTRAST: No acute hemorrhage, hydrocephalus or extra-axial collection is identified.No areas of brain edema or midline shift. Remote left cerebellar hemisphere infarct. Chronic small vessel ischemic changes. Cer ebral atrophy. The paranasal sinuses and mastoids are clear.The calvarium is intact. CT CERVICAL SPINE WITHOUT CONTRAST: No fracture or subluxation.No prevertebral soft tissues swelling is identified. Multilevel cervical s pondylosis with varying degrees of neural foraminal narrowing. This is severe bilaterally at C6-7. Th ere may also be some mild central spinal stenosis at this level. No high-grade central spinal stenosi s appreciated. Vascular stents in the right lower neck. IMPRESSION: No acute intracranial or cervical spine findings.
--- NOTE | 2023-11-28 19:18 | RAD REPORT ---
EXAM DESCRIPTION: RAD - Chest Single View - 11/28/2023 7:10 pm CLINICAL HISTORY: syncope COMPARISON: Chest Single View dated 12/18/2021; Chest Single View dated 02/03/2019; Chest Single View d ated 12/21/2017; Chest Single View dated 10/19/2017; Chest Angio dated 02/03/2019 FINDINGS: Lines: None. Lungs: No evidence of edema or pneumonia. Linear scarring in the right mid lung. Pleural: No significant pleural effusions or pneumothorax. Cardiac: The heart size is within normal limits. Mediastinum: Moderate hiatal hernia. Bones: No acute fractures. Other: Surgical clips in the right axilla and at the neck. IMPRESSION: No acute cardiopulmonary disease.
[2023-11-28 19:39] LABS: Protime INR 2.67
[2023-11-28 19:42] LABS: Hematocrit 28.2 % (39.6-49.0); Lymphocytes % 14.3 % (15.3-44.8); MCV 67.9 fL (80-100); MPV 8.9 fL (7.6-11.3); Platelets 194 thou/uL (152-406); RBC Red Blood Cell Count 4.16 M/uL (4.33-5.43)
[2023-11-28 19:51] LABS: ALT/SGPT 16 U/L (16-61); AST/SGOT 11 U/L (15-37); Albumin 3.2 g/dL (3.4-5.0); Alkaline Phosphatase 115 U/L (45-117); BUN Blood Urea Nitrogen 26 mg/dL (7-18); Bicarbonate 20 mEq/L (21-32); Bilirubin Total 0.2 mg/dL (0.2-1.0); Glomerular Filtration Rate 46 ml/min (=/>90); Glucose Level 137 mg/dL (74-106); Magnesium 1.3 mg/dL (1.6-2.4); Potassium 4.1 mEq/L (3.5-5.1); Protein, Total 7.3 g/dL (6.4-8.2); Sodium Level 136 mEq/L (136-145); Troponin High Sensitivity 9.2 pg/mL (<58.9)
[2023-11-28 19:53] LABS: Bilirubin Direct < 0.1 mg/dL (0-0.2); Bilirubin Indirect, Calculated ND mg/dL (0.2-0.8)
[2023-11-28 20:31] LABS: Anisocytosis 1+; Blood Morphology Comment NOTED (NOT SEEN); Hypochromasia 1+; Platelet Estimate ADEQ; White Blood Cell Scan OK (OK)
--- NOTE | 2023-11-28 21:59 | EDPHYS ---
Physician Documentation [facility] Name: Ba Ortiz Age: 68 yrs Sex: Male : 1955 Arrival Date: 11/28/2023 Time: 18:12 Bed 8 Private MD: ED Physician Daniel Moeller HPI: 11/28 18:33 This 68 yrs old Male presents to ER via EMS with complaints of Fall Injury. cp 18:33 Details of fall: The patient fell from an upright position, while walking. cp 18:33 Onset: The symptoms/episode began/occurred just prior to arrival. Associated injuries: cp The patient sustained injury to the head, contusion. Patient is a 68-year-old male with a past medical history significant for CVA, diabetes mellitus, hypertension who presents to the emergency department after reported syncopal episode. Patient reports she stood up and as he was walking, next thing he knows he woke up in the chair. Patient denies chest pain, abdominal pain but does report hitting the back of his head. Historical: - Allergies: 18:16 No Known Allergies; bp - PMHx: 18:16 Alcoholism; GERD; hiatal hernia; Hyperlipidemia; Hypertension; CVA; Diabetes - NIDDM; bp Gout; PAD; Arthritis; BPH; - PSHx: 18:16 bypass surgery x 1 left side; bypass surgery x 2 right side; bp - Immunization history:: Adult Immunizations up to date. - Social history:: Smoking status: Patient denies any tobacco usage or history of. ROS: 18:35 Constitutional: Negative for body aches, chills, fever, poor PO intake, cp 18:35 Eyes: Negative for injury, pain, redness, and discharge, cp 18:35 ENT: Negative for drainage from ear(s), ear pain, sore throat, difficulty swallowing, difficulty handling secretions, 18:35 Cardiovascular: Negative for chest pain, edema, palpitations, 18:35 Respiratory: Negative for cough, shortness of breath, wheezing, 18:35 Abdomen/GI: Negative for abdominal pain, vomiting, diarrhea, constipation, 18:35 Neuro: Positive for headache, syncope, Negative for altered mental status, weakness, 18:35 All other systems are negative, Exam: 18:40 Constitutional: The patient appears in no acute distress, alert, awake, cp non-diaphoretic, non-toxic, well developed, well nourished, 18:40 Head/face: Noted is tenderness, that is mild, of the left occipital area and right cp occipital area, 18:40 Eyes: Periorbital structures: appear normal, Pupils: equal, round, and reactive to light and accomodation, Extraocular movements: intact throughout, Conjunctiva: normal, no exudate, no injection, Sclera: no appreciated abnormality, Lids and lashes: appear normal, bilaterally, 18:40 ENT: External ear(s): are unremarkable, Nose: is normal, Mouth: Lips: moist, Oral mucosa: pink and intact, moist, Posterior pharynx: is normal, airway is patent, no erythema, no exudate, 18:40 Neck: C-spine: vertebral tenderness, is not appreciated, crepitus, is not appreciated, ROM/movement: pain, is not appreciated, limited range of motion, is not appreciated, nuchal rigidity, is not appreciated, 18:40 Chest/axilla: Inspection: normal, Palpation: is normal, no crepitus, no tenderness, 18:40 Cardiovascular: Rate: normal, Rhythm: regular, Edema: is not appreciated, JVD: is not appreciated, 18:40 Respiratory: the patient does not display signs of respiratory distress, Respirations: normal, no use of accessory muscles, no retractions, labored breathing, is not present, Breath sounds: are clear throughout, no decreased breath sounds, no stridor, no wheezing, 18:40 Abdomen/GI: Inspection: abdomen appears normal, Palpation: abdomen is soft and non-tender, in all quadrants, 18:40 Back: pain, is absent, ROM is normal, 18:40 Musculoskeletal/extremity: Extremities: all appear grossly normal, with no appreciated pain with palpation, 18:40 Neuro: Orientation: to person, place \T\ time. Mentation: is normal, Cerebellar function: no acute changes, Motor: moves all fours, strength is normal, Sensation: is normal, 19:25 ECG was reviewed by the Attending Physician. cp Vital Signs: 18:14 BP 109 / 80; Pulse 75; Resp 16; Temp 98; Pulse Ox 98% ; bp 19:10 BP 157 / 74; Pulse 88; Resp 17 S; Pulse Ox 100% on R/A; ha1 20:00 BP 163 / 76 Supine; Pulse 95; Resp 17 S; Pulse Ox 100% on R/A; ha1 20:05 BP 158 / 85 Sitting; Pulse 95; Resp 17 S; Pulse Ox 100% on R/A; ha1 20:07 BP 154 / 78 Standing; Pulse 97; Resp 20 S; Pulse Ox 99% on R/A; ha1 21:38 BP 176 / 92; Pulse 91; Resp 14; Pulse Ox 99% ; vc1 MDM: 18:16 Patient medically screened. cp 19:00 Differential diagnosis: closed head injury, contusion, fracture, laceration, multiple cp trauma. 21:58 Data reviewed: vital signs, nurses notes, lab test result(s), EKG, radiologic studies, cp CT scan, plain films. 21:58 Independent interpretation of the following test(s) in the Emergency Department EKG: cp See my EKG interpretation above. Care significantly affected by the following chronic conditions: Diabetes, Hypertension. Counseling: I had a detailed discussion with the patient and/or guardian regarding the historical points, exam findings, and any diagnostic results supporting the discharge/admit diagnosis, lab results, radiology results, the need for outpatient follow up, a family practitioner, to return to the emergency department if symptoms worsen or persist or if there are any questions or concerns that arise at home. Response to treatment: the patient's symptoms have mildly improved after treatment, and as a result, I will admit patient. Refusal of service: The patient/guardian displays adequate decision making capability and despite a detailed discussion of alternatives, benefits, risks, and consequences refuses: Admission to the hospital for further work-up and treatment. 11/28 17: Order name: Basic Metabolic Panel; Complete Time: 20:04 cp 11/28 20:04 Interpretation: Normal except: CO2 20; GLUC 137; BUN 26; CRE 1.61; GFR 46; CA 8.3. cp 11/28 18: Order name: CBC with Diff; Complete Time: 20:32 cp 11/28 20:04 Interpretation: Normal except: RBC 4.16; HGB 8.8; HCT 28.2; MCV 67.9; MCH 21.2; MCHC cp 31.2; RDW 21.3; LYM% 14.3; EOSINOPHIL % 4.7. 11/28 17: Order name: LFT's; Complete Time: 20:04 cp 11/28 18:29 Order name: Magnesium; Complete Time: 20:04 cp 11/28 20:05 Interpretation: Abnormal: MG 1.3. cp 11/28 18:29 Order name: PT-INR; Complete Time: 20:04 cp 11/28 18:29 Order name: Troponin HS; Complete Time: 20:04 cp 11/28 18:29 Order name: Urinalysis W/Microscopic cp 11/28 18:29 Order name: UDS cp 11/28 18:29 Order name: ETOH Level; Complete Time: 20:04 cp 11/28 20:05 Interpretation: Reviewed. 11/28 20:31 Order name: CBC Smear Scan; Complete Time: 20:32 EDMS 11/28 18:29 Order name: XRAY Chest (1 view); Complete Time: 20:04 cp 11/28 18:29 Order name: CT Head C Spine: syncope; Complete Time: 20:04 cp 11/28 18:29 Order name: EKG; Complete Time: 18:29 cp 11/28 18:29 Order name: Cardiac monitoring; Complete Time: 18:43 cp 11/28 18:29 Order name: EKG - Nurse/Tech; Complete Time: 19:28 cp 11/28 18:29 Order name: IV Saline Lock; Complete Time: 19:28 cp 11/28 18:29 Order name: Labs collected and sent; Complete Time: 19:28 cp 11/28 18:29 Order name: O2 Per Protocol; Complete Time: 18:43 cp 11/28 18:29 Order name: O2 Sat Monitoring; Complete Time: 18:43 cp 11/28 20:05 Order name: Orthostatics; Complete Time: 20:20 cp EC:25 Rate is 87 beats/min. Rhythm is regular. MN interval is normal. QRS interval is normal. cp QT interval is normal. T waves are Inverted in lead aVR. Interpreted by me. Reviewed by me. Administered Medications: 20:45 Drug: Magnesium Sulfate IVPB 2 grams IVPB once over 2 hrs Route: IVPB; Infused Over: 2 vc1 hrs; Site: left antecubital; 22:11 Follow up: Response: No adverse reaction; IV Status: Completed infusion; IV Intake: as6 100ml Disposition: 11/29 09:54 Co-signature as Attending Physician, Daniel Moeller MD I reviewed the patient's care rt provided by the Advanced Practice Provider and agree with the diagnosis and treatment plan. Disposition Summary: 11/28/23 21:59 Discharge Ordered Notes: Location: Home cp Problem: new cp Symptoms: have improved cp Condition: Stable cp Diagnosis - Syncope cp - Anemia in other chronic diseases classified elsewhere cp - Hypomagnesemia cp - Chronic kidney disease, unspecified cp Followup: cp - With: Raul Peres MD - When: 2 - 3 days - Reason: Recheck today's complaints Followup: cp - With: Cliff Sal MD - When: 2 - 3 days - Reason: Recheck today's complaints Discharge Instructions: - Discharge Summary Sheet cp - Anemia cp - Hypomagnesemia cp - Syncope cp - Food Basics for Chronic Kidney Disease cp - Chronic Kidney Disease, Adult cp Forms: - Medication Reconciliation Form cp - Thank You Letter cp - Antibiotic Education cp - Prescription Opioid Use cp - Patient Portal Instructions cp - Leadership Thank You Letter cp Signatures: Dispatcher [employer] EDMS Issac Kaufman PA PA cp Marlo Ko RN RN bp Pamela Dunbar RN RN vc1 Daniel Moeller MD MD rt Obi Elias RN as6 Corrections: (The following items were deleted from the chart) 00:57 00:56 This 68 yrs old Male presents to ER via EMS with complaints of Fall Injury. cp cp
--- NOTE | 2023-11-28 21:59 | ER ---
Nurse's Notes [facility] Name: Ba Ortiz Age: 68 yrs Sex: Male : 1955 Arrival Date: 11/28/2023 Time: 18:12 Bed 8 Private MD: Diagnosis: Syncope;Anemia in other chronic diseases classified elsewhere;Hypomagnesemia;Chronic kidney disease, unspecified Presentation: 11/28 18:14 Chief complaint: EMS states: SYNCOPAL FALL AT HOME, +LOC, LEFT OCCIPITAL PAIN. bp Coronavirus screen: At this time, the client does not indicate any symptoms associated with coronavirus-19. Ebola Screen: No symptoms or risks identified at this time. Initial Sepsis Screen: Does the patient meet any 2 criteria? No. Patient's initial sepsis screen is negative. Does the patient have a suspected source of infection? No. Patient's initial sepsis screen is negative. Risk Assessment: Do you want to hurt yourself or someone else? Patient reports no desire to harm self or others. Onset of symptoms is unknown. Care prior to arrival: IV initiated. 20 GA, in the left forearm, Glucose check: 183. 18:14 Method Of Arrival: EMS: [facility] bp 18:14 Acuity: BETHEL 3 bp Triage Assessment: 18:16 General: Appears in no apparent distress. Behavior is calm, cooperative, appropriate bp for age. Pain: Complains of pain in scalp. Neuro: Reports a syncopal episode. Historical: - Allergies: 18:16 No Known Allergies; bp - PMHx: 18:16 Alcoholism; GERD; hiatal hernia; Hyperlipidemia; Hypertension; CVA; Diabetes - NIDDM; bp Gout; PAD; Arthritis; BPH; - PSHx: 18:16 bypass surgery x 1 left side; bypass surgery x 2 right side; bp - Immunization history:: Adult Immunizations up to date. - Social history:: Smoking status: Patient denies any tobacco usage or history of. Screenin:18 [facility] ED Fall Risk Assessment (Adult) History of falling in the last 3 months, bp including since admission Yes- single mechanical fall (1 pt). Abuse screen: Denies threats or abuse. Denies injuries from another. Nutritional screening: No deficits noted. Tuberculosis screening: No symptoms or risk factors identified. Assessment: 18:18 General: SEE TRIAGE NOTE. bp 19:10 General: Appears comfortable, Behavior is calm, cooperative. Neuro: Level of ha1 Consciousness is awake, alert, obeys commands, Oriented to person, place, time, Appropriate for age. Cardiovascular: Capillary refill < 3 seconds Patient's skin is warm and dry. Respiratory: Airway is patent Respiratory effort is even, unlabored, Respiratory pattern is regular, symmetrical. : No signs and/or symptoms were reported regarding the genitourinary system. Derm: Skin is pale. Musculoskeletal: Circulation, motion, and sensation intact. 20:10 Reassessment: Patient and/or family updated on plan of care and expected duration. Pain ha1 level reassessed. Patient is alert, oriented x 3, equal unlabored respirations, skin warm/dry/pink. 21:38 Reassessment: Patient appears in no apparent distress at this time. No changes from vc1 previously documented assessment. Patient and/or family updated on plan of care and expected duration. Pain level reassessed. Patient is alert, oriented x 3, equal unlabored respirations, skin warm/dry/pink. 22:18 Reassessment: Patient and/or family updated on plan of care and expected duration. Pain ha1 level reassessed. Patient is alert, oriented x 3, equal unlabored respirations, skin warm/dry/pink. Vital Signs: 18:14 BP 109 / 80; Pulse 75; Resp 16; Temp 98; Pulse Ox 98% ; bp 19:10 BP 157 / 74; Pulse 88; Resp 17 S; Pulse Ox 100% on R/A; ha1 20:00 BP 163 / 76 Supine; Pulse 95; Resp 17 S; Pulse Ox 100% on R/A; ha1 20:05 BP 158 / 85 Sitting; Pulse 95; Resp 17 S; Pulse Ox 100% on R/A; ha1 20:07 BP 154 / 78 Standing; Pulse 97; Resp 20 S; Pulse Ox 99% on R/A; ha1 21:38 BP 176 / 92; Pulse 91; Resp 14; Pulse Ox 99% ; vc1 ED Course: 18:14 Patient arrived in ED. bp 18:16 Triage completed. bp 18:16 Issac Kaufman PA is PHCP. cp 18:16 Daniel Moeller MD is Attending Physician. cp 18:17 Arm band placed on. bp 18:18 Patient has correct armband on for positive identification. bp 18:18 Maintain EMS IV. Dressing intact. Good blood return noted. Site clean \T\ dry. Gauge \T\ bp site: 20 GA L AC. 18:20 Marlo Ko, RN is Primary Nurse. bp 18:53 CT Head C Spine: syncope In Process Unspecified. EDMS 19:12 XRAY Chest (1 view) In Process Unspecified. EDMS 19:28 Basic Metabolic Panel Sent. ha1 19:28 CBC with Diff Sent. ha1 19:28 LFT's Sent. ha1 19:28 Magnesium Sent. ha1 19:28 PT-INR Sent. ha1 19:28 Troponin HS Sent. ha1 19:28 ETOH Level Sent. ha1 21:57 Raul Peres MD is Referral Physician. cp 21:58 Cliff Sal MD is Referral Physician. cp 22:10 Provided Education on: follow up. as6 22:10 No provider procedures requiring assistance completed. IV discontinued, intact, as6 bleeding controlled, No redness/swelling at site. Pressure dressing applied. Administered Medications: 20:45 Drug: Magnesium Sulfate IVPB 2 grams IVPB once over 2 hrs Route: IVPB; Infused Over: 2 vc1 hrs; Site: left antecubital; 22:11 Follow up: Response: No adverse reaction; IV Status: Completed infusion; IV Intake: as6 100ml Medication: 18:18 VIS not applicable for this client. bp Intake: 22:11 IV: 100ml; Total: 100ml. as6 Outcome: 21:59 Discharge ordered by MD. cp 22:10 Discharged to home with family, as6 22:10 Condition: stable 22:10 Discharge instructions given to patient, family, Instructed on discharge instructions, follow up and referral plans. Demonstrated understanding of instructions, follow-up care, 22:18 Patient left the ED. ha1 Signatures: Dispatcher [employer] EDMS Issac Kaufman PA PA cp Marlo Ko, RN CRISTIAN bp Obi Elias RN RN as6 Pamela Dunbar RN RN vc1 Dorene Baca RN RN ha1
[2023-11-28 22:10] LABS: Barbiturates NEGATIVE (NEGATIVE); Benzodiazepines NEGATIVE (NEGATIVE); Cocaine NEGATIVE (NEGATIVE); METHAMPHETAM NEGATIVE (NEGATIVE); Methadone NEGATIVE (NEGATIVE); Opiates NEGATIVE (NEGATIVE); Phencyclidine NEGATIVE (NEGATIVE); THC Cannibis NEGATIVE (NEGATIVE)
[2023-11-28 22:18] LABS: Specific Gravity 1.014 (1.005-1.030); Urine Bacteria <20 /HPF (<20); Urine Bilirubin NEGATIVE (Negative); Urine Blood Negative (Negative); Urine Clarity Clear (Clear); Urine Color Light-Yellow (Yellow); Urine Glucose TRACE (Negative); Urine Protein NEGATIVE (Negative); Urine RBC <5 /HPF (None Seen); Urine Urobilinogen Normal (Normal); Urine pH 6.5 (5.0-7.0)
[2023-11-28 23:40] VITALS: TEMP 98
[2023-11-28 23:59] VITALS: BP 176/92
[2023-11-29] VITALS: O2SAT 99
== END ==
LOC: ER 18:12
DX: E11.22 Type 2 diabetes mellitus with diabetic chronic kidney disease (principal); I12.9 Hypertensive chronic kidney disease with stage 1 through stage 4 chronic kidney disease, or unspecified chronic kidney disease; N18.9 Chronic kidney disease, unspecified; D63.1 Anemia in chronic kidney disease; F10.20 Alcohol dependence, uncomplicated; S00.83XA Contusion of other part of head, initial encounter; Z86.73 Personal history of transient ischemic attack (TIA), and cerebral infarction without residual deficits
CPT/HCPCS: 93005; 85025; 81001; 80048; 36415; 83735; 85610; 80076; 84484; 80307; 70450; 72125; 71045; 82077; J3475

== ENCOUNTER 2024-06-30 18:11 | Emergency (ER) | payer OTHER ==
--- NOTE | 2024-06-30 18:36 | RAD REPORT ---
EXAM DESCRIPTION: CT - Ct Stroke Brain Wo Cont - 06/30/2024 6:30 pm CLINICAL HISTORY: STROKE ALERT Headache, drowsiness, CVA symptomology COMPARISON: <Comparisons> TECHNIQUE: All CT scans are performed using dose optimization technique as appropriate and may inclu de automated exposure control or mA/KV adjustment according to patient size. FINDINGS: No intracranial hemorrhage, hydrocephalus or extra-axial fluid collection.Old infarct with gliosis left cerebellum.No areas of brain edema or evidence of midline shift. The paranasal sinuses and mastoids are clear. The calvarium is intact. IMPRESSION: No acute intracranial abnormality. The findings were discussed with DR Conley in the ER on 06/30/2024 at 6:30 p.m. by telephone.
[2024-06-30 18:41] LABS: Absolute Basophils 0.1 K/uL (0-0.5); Absolute Eosinophils 0.3 K/uL (0-0.5); Absolute Lymphocytes (CBC) 1.1 K/uL (0.7-4.9); Absolute Monocytes 0.7 K/uL (0.1-1.3); Absolute Neutrophil 5.6 K/uL (1.8-8.0); Basophils % 1.2 % (0-1.3); Eosinophils % 4.3 % (0-4.4); Hemoglobin 10.8 g/dL (13.6-17.9); MCH 21.1 pg (27.0-35.0); MCHC 30.7 g/dL (32.0-36.0); MCV 68.9 fL (80-100); MPV 9.2 fL (7.6-11.3); Monocytes % 8.4 % (3.3-12.3); Neutrophils % 72.1 % (41.7-73.7); Nucleated Red Blood Cells % 0.2 % (0-0); Platelets 227 thou/uL (152-406); RBC Red Blood Cell Count 5.09 M/uL (4.33-5.43); Red Cell Distribution Width 18.4 % (12.1-15.2)
[2024-06-30 18:47] LABS: PT Prothrombin Time 30.2 SECONDS (9.4-12.5); PTT, Activated Partial Thromb 44.2 SECONDS (24.3-36.9); Protime INR 2.78
--- NOTE | 2024-06-30 18:49 | RAD REPORT ---
EXAM DESCRIPTION: CT - Head angio - 06/30/2024 6:39 pm CLINICAL HISTORY: LT sided weakness Headache, drowsiness, CVA symptomology COMPARISON: <Comparisons> TECHNIQUE: CT angiography of the head was performed with MIPs. All CT scans are performed using dose optimization technique as appropriate and may include automated exposure control or mA/KV adjustment according to patient size. FINDINGS: No evidence of large vessel occlusion. No evidence of aneurysm is detected. No flow-limiti ng stenosis or vascular malformation identified. The right vertebral artery is dominant. The left vertebral artery diminutive in size. . The visualized dural venous sinuses are patent. IMPRESSION: No significant flow abnormality is detected.
[2024-06-30] MEDS ORDERED: dilTIAZem HCL 25 MG/5 ML VIAL IV ONE ×2 (18:52→19:12)
--- NOTE | 2024-06-30 18:54 | RAD REPORT ---
EXAM DESCRIPTION: CT - Neck Angio - 06/30/2024 6:33 pm CLINICAL HISTORY: left arm weakness/numbness Headache, drowsiness COMPARISON: <Comparisons> TECHNIQUE: CT angiography of the neck vessels was performed with MIPs. All CT scans are performed using dose optimization technique as appropriate and may include automated exposure control or mA/KV adjustment according to patient size. FINDINGS: A left aortic arch is identified with normal three vessel configuration of the great vesse ls. Evidence of the in old thrombosed right subclavian stent present. Thrombosed old paraclavicular s tent. There is long segment soft plaque left common carotid artery. Moderate hard plaque is present right c arotid bulb causing stenosis of 50-70%. Moderate hard plaque is present right carotid bulb resulting in 50% stenosis. Mildly dominant right vertebral artery. The left vertebral artery diminutive. Moderate degenerate spo ndylosis of the cervical spine. IMPRESSION: Based on NASCET criteria, 50-70% stenosis of the right carotid bulb. NASCET criteria used. Mild 0-49% stenosis Moderate 50-69% stenosis Severe 70-99% stenosis
--- NOTE | 2024-06-30 19:00 | RAD REPORT ---
EXAM DESCRIPTION: RAD - Chest Single View - 06/30/2024 6:52 pm CLINICAL HISTORY: LUE weakness/ numbness Chest pain. COMPARISON: No comparisonsNo comparisonsCt Stroke Brain Wo Cont dated 06/30/2024; Head Brain Wo Cont dated 12/21/2017Chest Single View dated 11/28/2023; Chest Single View dated 12/18/2021; Chest Single Vie w dated 02/03/2019; Chest Single View dated 12/21/2017Chest Single View dated 11/28/2023; Chest Single Vi ew dated 12/18/2021; Chest Single View dated 02/03/2019; Chest Single View dated 12/21/2017; Neck Angio d ated 06/30/2024 FINDINGS: Portable technique limits examination quality. Mild pulmonary edema is seen. The heart is mildly enlarged in size. No displaced fractures.Clips are present of base of the neck. IMPRESSION: Mild CHF.
[2024-06-30 19:05] LABS: Anisocytosis 2+; Blood Morphology Comment NOTED (NOT SEEN); Platelet Estimate ADEQ; White Blood Cell Scan OK (OK)
[2024-06-30 19:07] LABS: Anion Gap 11.4 mEq/L (5.0-15.0); Magnesium 1.1 mg/dL (1.6-2.4); Potassium 4.4 mEq/L (3.5-5.1); Troponin High Sensitivity 10.7 pg/mL (<58.9)
--- NOTE | 2024-06-30 19:26 | ER ---
Nurse's Notes [facility] Name: Ba Ortiz Age: 68 yrs Sex: Male : 1955 Arrival Date: 06/30/2024 Time: 18:11 Bed 6 Private MD: Diagnosis: Subclavian artery occlusion;Atrial fibrillation with RVR;Left arm numbness;Left arm weakness Presentation: 06/30 18:13 Chief complaint: EMS states: toned out to pt home left sided numbness to arm and leg - ld1 onset was 1300. Coronavirus screen: At this time, the client does not indicate any symptoms associated with coronavirus-19. Ebola Screen: No symptoms or risks identified at this time. Initial Sepsis Screen: Does the patient meet any 2 criteria? No. Patient's initial sepsis screen is negative. Does the patient have a suspected source of infection? No. Patient's initial sepsis screen is negative. Risk Assessment: Do you want to hurt yourself or someone else? Patient reports no desire to harm self or others. Onset of symptoms was June 30, 2024. 18:13 Method Of Arrival: EMS: [facility] ld1 18:13 Acuity: BETHEL 2 ld1 Triage Assessment: 18:14 General: Appears in no apparent distress. comfortable, Behavior is calm, cooperative, ld1 appropriate for age. Pain: Denies pain. EENT: No signs and/or symptoms were reported regarding the EENT system. Neuro: Level of Consciousness is awake, alert, obeys commands, Oriented to person, place, time, situation. Cardiovascular: Capillary refill < 3 seconds Patient's skin is warm and dry. Respiratory: Airway is patent Respiratory effort is even, unlabored. GI: Abdomen is round non-distended. : No signs and/or symptoms were reported regarding the genitourinary system. Derm: No signs and/or symptoms reported regarding the dermatologic system. Musculoskeletal: No signs and/or symptoms reported regarding the musculoskeletal system. Historical: - Allergies: 18:14 No Known Allergies; ld1 - Home Meds: 18:14 warfarin 5 mg oral tablet 1.5 tabs daily [Active]; ld1 - PMHx: 18:14 PAD; Hypertension; Hyperlipidemia; hiatal hernia; Gout; GERD; Diabetes - NIDDM; CVA; ld1 BPH; Arthritis; Alcoholism; - Immunization history:: Adult Immunizations up to date. - Infectious Disease History:: Denies. - Social history:: Smoking status: Patient denies any tobacco usage or history of. Screenin:15 VAN Screening: Arm Drift: Minor drift. Visual Disturbance: No visual disturbance noted. ld1 Aphasia: No aphasia noted. Neglect: No neglect noted. 18:16 [facility] ED Fall Risk Assessment (Adult) History of falling in the last 3 months, ld1 including since admission No falls in past 3 months (0 pts) Confusion or Disorientation No (0 pts) Intoxicated or Sedated No (0 pts) Impaired Gait No (0 pts) Mobility Assist Device Used No (0 pt) Altered Elimination No (0 pt) Score/Fall Risk Level 0 - 2 = Low Risk. Abuse screen: Denies threats or abuse. Denies injuries from another. Nutritional screening: No deficits noted. Tuberculosis screening: No symptoms or risk factors identified. 18:25 Carole Swallow Protocol Brief Cognitive Screen What is your name? Normal, Where are you ld1 right now? Normal, What year is it? Normal. Oral Mechanism Examination Facial Symmetry: Normal, Motion: Normal, Lip Closure: Normal, Oral Mechanism Result: Normal. 3 oz Water Swallow Challenge: Pt able to drink all water without stopping, coughing, choking or throat clearing: Yes Result: PASS Notified: Danny Conley DO. Assessment: 18:09 Reassessment: ERP at bedside assessing patient. ld1 18:11 Reassessment: Code stroke called. ld1 18:12 Reassessment: Pt to CT at 1812. ld1 18:16 Reassessment: See triage assessment. ld1 18:49 Reassessment: Notified ERP of HR. ld1 07/01 02:05 General: Appears in no apparent distress. Behavior is calm, cooperative. Neuro: Level kd3 of Consciousness is awake, alert, obeys commands, Oriented to person, place, time, situation. Cardiovascular: Patient's skin is warm and dry. Respiratory: Airway is patent Trachea midline Respiratory effort is even, unlabored, Respiratory pattern is regular, symmetrical. Vital Signs: 06/30 18:13 BP 177 / 99; Pulse 70; Resp 18; Temp 97.8(TE); Pulse Ox 100% on R/A; Weight 84.82 kg; ld1 Height 5 ft. 9 in. ; Pain 0/10; 18:25 BP 159 / 89; Resp 18; Pulse Ox 100% on R/A; ld1 18:51 BP 159 / 89; Pulse 172; Resp 16; Pulse Ox 98% on R/A; ld1 19:21 BP 157 / 101; Pulse 105; Resp 16; Pulse Ox 96% on R/A; kd3 19:21 Pulse 119; kd3 20:32 BP 130 / 91; Pulse 131; Resp 16; Pulse Ox 99% on R/A; kd3 21:41 BP 112 / 80; Pulse 135; Resp 19; Pulse Ox 98% on R/A; kd3 22:00 BP 109 / 89; Pulse 103; Resp 17; Pulse Ox 96% on R/A; kd3 22:30 BP 127 / 75; Pulse 65; Resp 16; Pulse Ox 96% ; kd3 23:00 BP 122 / 70; Pulse 62; Resp 18; Pulse Ox 97% on R/A; kd3 23:30 BP 120 / 80; Pulse 62; Resp 18; Pulse Ox 97% on R/A; kd3 07/01 00:48 BP 129 / 77; Pulse 63; Resp 18; Pulse Ox 99% on R/A; kd3 02:07 BP 124 / 78; Pulse 68; Resp 19; Pulse Ox 99% ; kd3 06/30 18:13 Body Mass Index 27.61 (84.82 kg, 175.26 cm) ld1 06/30 18:13 Pain Scale: Adult ld1 NIH Stroke Scale Scores: 06/30 18:15 NIHSS Score: 2 ld1 18:17 NIHSS Score: 2 ms3 ED Course: 18:12 Patient arrived in ED. ld1 18:12 Danny Conley DO is Attending Physician. ms3 18:14 Triage completed. ld1 18:14 Arm band placed on right wrist. ld1 18:16 Patient has correct armband on for positive identification. Placed in gown. Bed in low ld1 position. Call light in reach. Side rails up X2. web services professional on. Pulse ox on. NIBP on. Door closed. Noise minimized. Warm blanket given. 18:16 No provider procedures requiring assistance completed. ld1 18:19 Marily Conley, CRISTIAN is Primary Nurse. ld1 18:28 Initial lab(s) drawn, by ED staff, sent to lab. Inserted saline lock: 20 gauge in left mb9 forearm, using aseptic technique. Blood collected. Flushed with 10 mL NS. 18:32 CT Stroke Brain w/o Contrast In Process Unspecified. EDMS 18:35 CT Neck Angio In Process Unspecified. EDMS 18:41 Head angio In Process Unspecified. EDMS 18:48 Initiated transfer with Sulaiman at [facility]. rv1 18:53 Stroke CXR 1 View In Process Unspecified. EDMS 19:09 Report given to Alex RN. mb9 21:30 Attending Physician role handed off by Danny Conley DO sp4 21:30 Mainor Rodriguez MD is Attending Physician. sp4 22:38 Called [place] for update on transfer, still awaiting approval from ER. rv1 08 00:16 Ptt, Activated Sent. kd3 02:06 Provided Education on: need for transfer. kd3 02:06 Patient transferred, IV remains in place. kd3 Administered Medications: 02:06 Discontinued: Heparin (DVT/PE Drip) - ([id number] units, [id number] ml) 18 units/kg/hr IV kd3 at calculated rate Per protocol; Max initial rate 1800 units/hr 08 18:54 Drug: Diltiazem IVP 0.25 mg/kg IVP once; Over 2 minutes Route: IVP; Site: left wrist; ld1 19:10 Follow up: Response: No adverse reaction ld1 20:59 Follow up: Response: No adverse reaction kd3 19:20 Drug: Diltiazem IVP 0.35 mg/kg IVP once; Over 2 minutes Route: IVP; Site: left forearm; kd3 20:59 Follow up: Response: No adverse reaction kd3 20:16 Drug: Heparin (DVT/PE- Bolus per protocol) - HEParin IVP 80 units/kg IVP once; Max kd3 8,000 units {Co-Signature: mt4 (Amanda Pearson RN).} Route: IVP; Site: right forearm; 20:59 Follow up: Response: No adverse reaction kd3 20:16 Drug: Heparin (DVT/PE Drip) 18 units/kg/[place] - ([place] [address] units, D5W IV 500 ml) IV kd3 at calculated rate Per protocol; Max initial rate 1800 units/hr {Co-Signature: mt4 (Amanda Pearson RN).} Route: IV; Rate: calculated rate; Site: right forearm; 20:31 Drug: amiodarone IVP 150 mg IVP once Route: IVP; Site: left forearm; kd3 20:59 Follow up: Response: No adverse reaction kd3 20:31 Drug: Magnesium Sulfate IVPB 1 grams IVPB once over 1 hrs Route: IVPB; Infused Over: 1 kd3 hrs; Site: left antecubital; 23:33 Follow up: IV Status: Completed infusion kd3 20:40 Drug: amiodarone IVPB 900 mg, D5W IV 500 ml IVPB at 1 mg/min continuous; for 6 hrs, kd3 then change to 0.5 mg/min Route: IVPB; Rate: 1 mg/min; Site: left forearm; Medication: 18:16 VIS not applicable for this client. ld1 Outcome: 19:26 ER care complete, transfer ordered by ms3 07/01 02:06 Transferred by ground EMS kd3 Condition: stable Discharge instructions given to patient, Instructed on the need for transfer, Demonstrated understanding of instructions, 02:07 Patient left the ED. kd3 NIH Stroke Scale - NIH Stroke Score Date: 06/30/2024 Time: 18:15 Total Score = 2 10. Dysarthria (speech clarity - read or repeat words) - 0(Normal) 11. Extinction and Inattention (visual/tactile/auditory/spatial/personal) - 0(No abnormality) 1a. Level of Consciousness (LOC) - 0(Alert) 1b. Level of Consciousness (LOC) (Month \T\ Age) - 0(Both) 1c. LOC Commands (Open \T\ Closes Eyes/Garden Worker) - 0(Both) 2. Best Gaze (Lateral Gaze Paresis) - 0(Normal) 3. Visual Field Loss - 0(No visual loss) 4. Facial Palsy - 0(Normal) 5a. Left Arm: Motor (10-second hold) - 1(Drift) 5b. Right Arm: Motor (10-second hold) - 0(No drift) 6a. Left Leg: Motor (5-second hold - always test supine) - 0(No drift) 6b. Right Leg: Motor (5-second hold - always test supine) - 0(No drift) 7. Limb Ataxia (finger/nose \T\ heel/gamez - test with eyes open) - 0(Absent) 8. Sensory Loss (pinprick arms/legs/face) - 1(Mild to moderate loss) 9. Best Language: Aphasia (description/naming/reading) - 0(No aphasia) Initials: ld1 NIH Stroke Scale - NIH Stroke Score Date: 06/30/2024 Time: 18:17 Total Score = 2 10. Dysarthria (speech clarity - read or repeat words) - 0(Normal) 11. Extinction and Inattention (visual/tactile/auditory/spatial/personal) - 0(No abnormality) 1a. Level of Consciousness (LOC) - 0(Alert) 1b. Level of Consciousness (LOC) (Month \T\ Age) - 0(Both) 1c. LOC Commands (Open \T\ Closes Eyes/Garden Worker) - 0(Both) 2. Best Gaze (Lateral Gaze Paresis) - 0(Normal) 3. Visual Field Loss - 0(No visual loss) 4. Facial Palsy - 0(Normal) 5a. Left Arm: Motor (10-second hold) - 1(Drift) 5b. Right Arm: Motor (10-second hold) - 0(No drift) 6a. Left Leg: Motor (5-second hold - always test supine) - 0(No drift) 6b. Right Leg: Motor (5-second hold - always test supine) - 0(No drift) 7. Limb Ataxia (finger/nose \T\ heel/gamez - test with eyes open) - 0(Absent) 8. Sensory Loss (pinprick arms/legs/face) - 1(Mild to moderate loss) 9. Best Language: Aphasia (description/naming/reading) - 0(No aphasia) Initials: ms3 Signatures: Dispatcher [employer] EDMS Danny Conley, DO COVARRUBIAS ms3 Marily Conley RN RN ld1 Tamra Roldan RN RN [id number] Ailyn Mcdaniels RN RN mb9 Peggy Odom Sergey, MD MD sp4 Amanda Pearson RN mt4 Corrections: (The following items were deleted from the chart) 06/30 18:16 18:14 PSHx: bypass surgery x 2 right side; ld1 ld1 18:16 18:14 PSHx: bypass surgery x 1 left side; ld1 ld1 20:31 20:31 amiodarone IVPB 900 mg, D5W IV 500 ml IVPB at 1 mg/min in left forearm [id number]
--- NOTE | 2024-06-30 19:27 | EDPHYS ---
Physician Documentation [facility] Name: Ba Blanco Age: 68 yrs Sex: Male : 1955 Arrival Date: 06/30/2024 Time: 18:11 Bed 6 Private MD: ED Physician Mainor Rodriguez HPI: 06/30 18:18 This 68 yrs old Male presents to ER via EMS with complaints of Numbness Of Arm, ms3 Numbness - of leg. 18:18 68-year-old male with past medical history of peripheral artery disease, hypertension, ms3 hyperlipidemia, hiatal hernia, gout, GERD, diabetes, CVA presents to the emergency department for left upper extremity numbness and weakness that began at 1 PM. Patient notes he has previous CVA with no deficits. Patient denies pain.. Historical: - Allergies: 18:14 No Known Allergies; ld1 - Home Meds: 18:14 warfarin 5 mg oral tablet 1.5 tabs daily [Active]; ld1 - PMHx: 18:14 PAD; Hypertension; Hyperlipidemia; hiatal hernia; Gout; GERD; Diabetes - NIDDM; CVA; ld1 BPH; Arthritis; Alcoholism; - Immunization history:: Adult Immunizations up to date. - Infectious Disease History:: Denies. - Social history:: Smoking status: Patient denies any tobacco usage or history of. ROS: 18:18 Constitutional: Negative for fever, and chills. Neck: Negative for injury, pain, and ms3 swelling, Cardiovascular: Negative for chest pain, and palpitations. Respiratory: Negative for shortness of breath, cough, wheezing, and pleuritic chest pain, Abdomen/GI: Negative for abdominal pain, nausea, vomiting, diarrhea, and constipation, 18:18 MS/extremity: Positive for Left arm weakness/ numbness, Exam: 18:18 Constitutional: This is a well developed, well nourished patient who is awake, alert, ms3 and in no acute distress. Head/Face: Normocephalic, atraumatic. Chest/axilla: Normal chest wall appearance and motion. Nontender with no deformity. Cardiovascular: Regular rate and rhythm with a normal S1 and S2. No gallops, murmurs, or rubs. Normal PMI, no JVD. No pulse deficits. Respiratory: Lungs have equal breath sounds bilaterally, clear to auscultation and percussion. No rales, rhonchi or wheezes noted. No increased work of breathing, no retractions or nasal flaring. Abdomen/GI: Soft, non-tender, with normal bowel sounds. No distension or tympany. No guarding or rebound. No evidence of tenderness throughout. Skin: Warm, dry with normal turgor. Normal color with no rashes, no lesions, and no evidence of cellulitis. 18:18 Musculoskeletal/extremity: the Left upper extremity Tingling of extremity. numbness, Vital Signs: 18:13 BP 177 / 99; Pulse 70; Resp 18; Temp 97.8(TE); Pulse Ox 100% on R/A; Weight 84.82 kg; ld1 Height 5 ft. 9 in. ; Pain 0/10; 18:25 BP 159 / 89; Resp 18; Pulse Ox 100% on R/A; ld1 18:51 BP 159 / 89; Pulse 172; Resp 16; Pulse Ox 98% on R/A; ld1 19:21 BP 157 / 101; Pulse 105; Resp 16; Pulse Ox 96% on R/A; kd3 19:21 Pulse 119; kd3 20:32 BP 130 / 91; Pulse 131; Resp 16; Pulse Ox 99% on R/A; kd3 21:41 BP 112 / 80; Pulse 135; Resp 19; Pulse Ox 98% on R/A; kd3 22:00 BP 109 / 89; Pulse 103; Resp 17; Pulse Ox 96% on R/A; kd3 22:30 BP 127 / 75; Pulse 65; Resp 16; Pulse Ox 96% ; kd3 23:00 BP 122 / 70; Pulse 62; Resp 18; Pulse Ox 97% on R/A; kd3 23:30 BP 120 / 80; Pulse 62; Resp 18; Pulse Ox 97% on R/A; kd3 07/01 00:48 BP 129 / 77; Pulse 63; Resp 18; Pulse Ox 99% on R/A; kd3 02:07 BP 124 / 78; Pulse 68; Resp 19; Pulse Ox 99% ; kd3 06/30 18:13 Body Mass Index 27.61 (84.82 kg, 175.26 cm) ld 06/30 18:13 Pain Scale: Adult ld1 NIH Stroke Scale Scores: 06/30 18:15 NIHSS Score: 2 ld1 18:17 NIHSS Score: 2 ms3 MDM: 18:12 Patient medically screened. ms3 18:18 Differential diagnosis: CVA vs Electrolyte abnormality vs TIA. ms3 21:30 Data reviewed: vital signs, nurses notes, old medical records, lab test result(s), sp4 radiologic studies, CT scan. 23:13 ED course: [place] [id number] sp4 RADIOLOGYSERVICES REPORT Name: BA BLANCO Number: [id number] :1955 Age:68 Sex:M Ord Phys: Danny Conley Unit Number: [id number] [place] Care Dr: JESSICA Status: REG ER Exam Date: 06/30/24 ADDENDUM The proximal left subclavian artery origin appears occluded. There is reconstitution of blood flow in the distal subclavian artery. Subclavian steal syndrome may be considered clinically. Addendum Dictated By: Ángel Gómez MD Addendum Signed By: Ángel Gómez MD Dictated Date/Time: 06/30/24 Transcribed Date/Time: 06/30/24 Signed Date/Time: 06/30/241900 CC: NONE; Danny Conley DO EXAM DESCRIPTION: CT - Neck Angio - 06/30/2024 6:33 pm CLINICAL HISTORY: left arm weakness/numbness Headache, drowsiness COMPARISON: TECHNIQUE: CT angiography of the neck vessels was performed with MIPs. All CT scans are performed using dose optimization technique as appropriate and may include automated exposure control or mA/KV adjustment according to patient size. FINDINGS: A left aortic arch is identified with normal three vessel configuration of the great vessels. Evidence of the in old thrombosed right subclavian stent present. Thrombosed old parac lavicular stent. There is long segment soft plaque left common carotid artery. Moderate hard plaque is present right carotid bulb causing stenosis of 50-70%. Moderate hard plaque is present right carotid bulb resulting in 50% stenosis. Mildly dominant right vertebral artery. The left vertebral artery diminutive. Moderate degenerate spondylosis of the cervical spine. IMPRESSION: Based on NASCET criteria, 50-70% stenosis of the right carotid bulb. . ED course: EXAM DESCRIPTION: CT - Head angio - 06/30/2024 6:39 pm CLINICAL HISTORY: LT sided weakness Headache, drowsiness, CVA symptomology COMPARISON: TECHNIQUE: CT angiography of the head was performed with MIPs. All CT scans are performed using dose optimization technique as appropriate and may include automated exposure control or mA/KV adjustment according to patient size. FINDINGS: No evidence of large vessel occlusion. No evidence of aneurysm is detected. No flowlimiting stenosis or vascular malformation identified. The right vertebral artery is dominant. The left vertebral artery diminutive in size. . The visualized dural venous sinuses are patent. IMPRESSION: No significant flow abnormality is detected. ED course: EXAM DESCRIPTION: RAD - Chest Single View - 06/30/2024 6:52 pm CLINICAL HISTORY: LUE weakness/ numbness Chest pain. COMPARISON: No comparisonsNo comparisonsCt Stroke Brain Wo Cont dated 06/30/2024; Head Brain Wo Cont dated 12/21/2017Chest Single View dated 11/28/2023; Chest Single View dated 12/18/2021; Chest Single View dated 02/03/2019; Chest Single View dated 12/21/2017Chest Single View dated 11/28/2023; Chest Single View dated 12/18/2021; Chest Single View dated 02/03/2019; Chest Single View dated 12/21/2017; Neck Angio dated 06/30/2024 FINDINGS: Portable technique limits examination quality. Mild pulmonary edema is seen. The heart is mildly enlarged in size. No displaced fractures.Clips are present of base of the neck. IMPRESSION: Mild CHF. Signed By: Ángel Gómez MD. ED course: EXAM DESCRIPTION: CT - Ct Stroke Brain Wo Cont - 06/30/2024 6:30 pm CLINICAL HISTORY: STROKE ALERT Headache, drowsiness, CVA symptomology COMPARISON: TECHNIQUE: All CT scans are performed using dose optimization technique as appropriate and may include automated exposure control or mA/KV adjustment according to patient size. FINDINGS: No intracranial hemorrhage, hydrocephalus or extra-axial fluid collection.Old infarct with gliosis left cerebellum.No areas of brain edema or evidence of midline shift. The paranasal sinuses and mastoids are clear. The calvarium is intact. IMPRESSION: No acute intracranial abnormality. The findings were discussed with DR Conley in the ER on 06/30/2024 at 6:30 p.m. by telephone. . 23:15 Consideration of Admission/Observation Escalation of care including sp4 admission/observation considered. Management of patient was discussed with the following: Hospitalist: At [facility] . 23:15 ED course: Was discussed with attending telephoner at the [facility] and accepted for sp4 transfer. . 06/30 18:14 Order name: Basic Metabolic Panel; Complete Time: 19:54 ms3 06/30 18:14 Order name: CBC with Diff; Complete Time: 19:06 ms3 06/30 18:14 Order name: High Sensitivity Troponin; Complete Time: 19:54 ms3 06/30 18:14 Order name: Magnesium; Complete Time: 19:54 ms3 06/30 18:14 Order name: Protime (+inr); Complete Time: 18:51 ms3 06/30 18:14 Order name: Ptt, Activated; Complete Time: 18:51 ms3 06/30 18:43 Order name: CBC Smear Scan; Complete Time: 19:06 EDMS 06/30 23:56 Order name: Ptt, Activated; Complete Time: 06:43 kd3 07/01 01:14 Order name: Ptt, Activated; Complete Time: 06:43 kd3 06/30 18:14 Order name: CT Neck Angio; Complete Time: 19:06 ms3 06/30 18:14 Order name: CT Stroke Brain w/o Contrast; Complete Time: 18:51 ms3 06/30 18:14 Order name: Stroke CXR 1 View; Complete Time: 19:06 ms3 06/30 18:30 Order name: Head angio; Complete Time: 18:51 EDMS 06/30 18:14 Order name: EKG; Complete Time: 18:15 ms3 06/30 18:14 Order name: Accucheck; Complete Time: 18:28 ms3 06/30 18:14 Order name: Cardiac monitoring; Complete Time: 18:28 ms3 06/30 18:14 Order name: EKG - Nurse/Tech; Complete Time: 18:42 ms3 06/30 18:14 Order name: IV Saline Lock; Complete Time: 18:28 ms3 06/30 18:14 Order name: Labs collected and sent; Complete Time: 18:28 ms3 06/30 18:14 Order name: NPO; Complete Time: 18:19 ms3 06/30 18:14 Order name: O2 Per Protocol; Complete Time: 18:19 ms3 06/30 18:14 Order name: O2 Sat Monitoring; Complete Time: 18:19 ms3 06/30 18:14 Order name: Stroke Swallow Screen; Complete Time: 18:42 ms3 Administered Medications: 07/01 02:06 Discontinued: Heparin (DVT/PE Drip) - ([id number] units, [id number] ml) 18 units/kg/hr IV kd3 at calculated rate Per protocol; Max initial rate 1800 units/hr 06/30 18:54 Drug: Diltiazem IVP 0.25 mg/kg IVP once; Over 2 minutes Route: IVP; Site: left wrist; ld1 19:10 Follow up: Response: No adverse reaction ld1 20:59 Follow up: Response: No adverse reaction kd3 19:20 Drug: Diltiazem IVP 0.35 mg/kg IVP once; Over 2 minutes Route: IVP; Site: left forearm; kd3 20:59 Follow up: Response: No adverse reaction kd3 20:16 Drug: Heparin (DVT/PE- Bolus per protocol) - HEParin IVP 80 units/kg IVP once; Max kd3 8,000 units {Co-Signature: mt4 (Amanda Pearson RN).} Route: IVP; Site: right forearm; 20:59 Follow up: Response: No adverse reaction kd3 20:16 Drug: Heparin (DVT/PE Drip) 18 units/kg/hr - ([place] [address] units, D5W IV 500 ml) IV kd3 at calculated rate Per protocol; Max initial rate 1800 units/hr {Co-Signature: mt4 (Amanda Pearson RN).} Route: IV; Rate: calculated rate; Site: right forearm; 20:31 Drug: amiodarone IVP 150 mg IVP once Route: IVP; Site: left forearm; kd3 20:59 Follow up: Response: No adverse reaction kd3 20:31 Drug: Magnesium Sulfate IVPB 1 grams IVPB once over 1 hrs Route: IVPB; Infused Over: 1 kd3 hrs; Site: left antecubital; 23:33 Follow up: IV Status: Completed infusion kd3 20:40 Drug: amiodarone IVPB 900 mg, D5W IV 500 ml IVPB at 1 mg/min continuous; for 6 hrs, kd3 then change to 0.5 mg/min Route: IVPB; Rate: 1 mg/min; Site: left forearm; Disposition Summary: 06/30/24 19:26 Transfer Ordered Notes: Transfer Location: [facility] ms3 Reason: Higher level of care ms3 Condition: Stable ms3 Problem: new ms3 Symptoms: are unchanged ms3 Accepting Physician: (07/01/24 02:07) kd3 Diagnosis - Subclavian artery occlusion ms3 - Atrial fibrillation with RVR ms3 - Left arm numbness ms3 - Left arm weakness ms3 Forms: - Medication Reconciliation Form ms3 - SBAR form ms3 Critical care time excluding procedures: 21:32 Critical care time: Bedside Care: 50 minutes. Total time: 50 minutes ms3 NIH Stroke Scale - NIH Stroke Score Date: 06/30/2024 Time: 18:15 Total Score = 2 10. Dysarthria (speech clarity - read or repeat words) - 0(Normal) 11. Extinction and Inattention (visual/tactile/auditory/spatial/personal) - 0(No abnormality) 1a. Level of Consciousness (LOC) - 0(Alert) 1b. Level of Consciousness (LOC) (Month \T\ Age) - 0(Both) 1c. LOC Commands (Open \T\ Closes Eyes/Award Clerk) - 0(Both) 2. Best Gaze (Lateral Gaze Paresis) - 0(Normal) 3. Visual Field Loss - 0(No visual loss) 4. Facial Palsy - 0(Normal) 5a. Left Arm: Motor (10-second hold) - 1(Drift) 5b. Right Arm: Motor (10-second hold) - 0(No drift) 6a. Left Leg: Motor (5-second hold - always test supine) - 0(No drift) 6b. Right Leg: Motor (5-second hold - always test supine) - 0(No drift) 7. Limb Ataxia (finger/nose \T\ heel/gamez - test with eyes open) - 0(Absent) 8. Sensory Loss (pinprick arms/legs/face) - 1(Mild to moderate loss) 9. Best Language: Aphasia (description/naming/reading) - 0(No aphasia) Initials: ld1 NIH Stroke Scale - NIH Stroke Score Date: 06/30/2024 Time: 18:17 Total Score = 2 10. Dysarthria (speech clarity - read or repeat words) - 0(Normal) 11. Extinction and Inattention (visual/tactile/auditory/spatial/personal) - 0(No abnormality) 1a. Level of Consciousness (LOC) - 0(Alert) 1b. Level of Consciousness (LOC) (Month \T\ Age) - 0(Both) 1c. LOC Commands (Open \T\ Closes Eyes/Award Clerk) - 0(Both) 2. Best Gaze (Lateral Gaze Paresis) - 0(Normal) 3. Visual Field Loss - 0(No visual loss) 4. Facial Palsy - 0(Normal) 5a. Left Arm: Motor (10-second hold) - 1(Drift) 5b. Right Arm: Motor (10-second hold) - 0(No drift) 6a. Left Leg: Motor (5-second hold - always test supine) - 0(No drift) 6b. Right Leg: Motor (5-second hold - always test supine) - 0(No drift) 7. Limb Ataxia (finger/nose \T\ heel/gamez - test with eyes open) - 0(Absent) 8. Sensory Loss (pinprick arms/legs/face) - 1(Mild to moderate loss) 9. Best Language: Aphasia (description/naming/reading) - 0(No aphasia) Initials: ms3 Signatures: Dispatcher [employer] EDMS Danny Conley DO DO ms3 Marily Conley, RN RN ld1 Tamra Roldan RN RN kd3 Mainor Rodriguez MD MD sp4 Farshad Pearson CRISTIAN mt4 Corrections: (The following items were deleted from the chart) 18:15 18:15 BASIC METABOLIC PANEL+C.LAB.BRZ ordered. EDMS EDMS 18:15 18:15 CBC+H.LAB.BRZ ordered. EDMS EDMS 18:15 18:15 Troponin High Sensitivity+C.LAB.BRZ ordered. EDMS EDMS 18:15 18:15 MAGNESIUM+C.LAB.BRZ ordered. EDMS EDMS 18:15 18:15 PROTIME (+INR)+COAG.LAB.BRZ ordered. EDMS EDMS 18:15 18:15 PTT, ACTIVATED+COAG.LAB.BRZ ordered. EDMS EDMS 18:16 18:14 PSHx: bypass surgery x 2 right side; ld1 ld1 18:16 18:14 PSHx: bypass surgery x 1 left side; ld1 ld1 07/01 02:07 06/30 19:26 ms3 kd3
[2024-06-30] MEDS ORDERED: HEPARIN 5000 UNIT/ML 1 ML VIAL ONE (19:37)
[2024-06-30] MEDS ORDERED: HEPARIN/D5W 25,000 UNIT/500 ML BAG IV ONE (19:38)
[2024-06-30] MEDS ORDERED: AMIODARONE IN DEXTROSE,ISO-OSM 360 MG/200 ML BAG IV ONE (20:19)
[2024-06-30] MEDS ORDERED: AMIODARONE HCL 150 MG/3 ML INJ IV ONE (20:19)
[2024-06-30] MEDS ORDERED: MAGNESIUM SULFATE 1 gm IVPB 1 GM/100 ML BAG IV ONE (20:19)
[2024-06-30] MEDS ORDERED: NA CHLORIDE 0.9% 250 ML ONE (20:20)
[2024-06-30] MEDS ORDERED: NA CHLORIDE 0.9% 100 ML ONE (20:20)
[2024-07-01] MEDS ORDERED: AMIODARONE IN DEXTROSE,ISO-OSM 360 MG/200 ML BAG IV ONE (00:50)
[2024-07-01 02:33] VITALS: TEMP 97.8
[2024-07-01 02:50] VITALS: O2SAT 99
[2024-07-01 02:51] VITALS: BP 124/78
--- NOTE | 2024-07-04 12:48 | EKG ---
Test Date: 2024-06-30 Test Time: 18:44:45 Human Intelligence: CHARLEEN MEASUREMENT RESULTS: Intervals: Rate: 167 WI: QRSD: 82 QT: 282 QTc: 470 [place]: P: WI: QRS: 70 T: 64 INTERPRETIVE STATEMENTS: Atrial fibrillation Low voltage QRS Abnormal ECG Compared to ECG 11/28/2023 19:20:25 Low QRS voltage now present Sinus rhythm no longer present Electronically Signed On 07-04-24 12:42:30 CDT by Colin Mercer
== END 2024-07-01 02:07 ==
LOC: ER 18:11
DX: I65.22 Occlusion and stenosis of left carotid artery (principal); I65.21 Occlusion and stenosis of right carotid artery; I48.91 Unspecified atrial fibrillation; R53.1 Weakness; I10 Essential (primary) hypertension; E11.9 Type 2 diabetes mellitus without complications; F10.20 Alcohol dependence, uncomplicated; Z86.73 Personal history of transient ischemic attack (TIA), and cerebral infarction without residual deficits
CPT/HCPCS: 93005; 85025; 80048; 36415; 83735; 85610; 85730 ×3; 84484; 70496; 70498; 70450; 71045; 99285; Q9967; J1644 ×2; J3475; J0282 ×3; J7050

== ENCOUNTER 2024-09-14 08:20 | Inpatient (IN) | payer OTHER ==
[2024-09-14 10:50] VITALS: BMI 25.9
[2024-09-14] MEDS ORDERED: ACETAMINOPHEN 500 MG TAB PO PRN (11:19)
[2024-09-14] MEDS ORDERED: MAGNESIUM HYDROXIDE 8% 30 ML PO PRN (11:20)
[2024-09-14] MEDS ORDERED: CYCLOBENZAPRINE 10 MG TAB PO PRN (11:22)
[2024-09-14 13:13] LABS: Specific Gravity 1.021 (1.005-1.030); Sqamous Epithelial <5 /HPF (None Seen); Urine Bacteria None Seen /HPF (<20); Urine Bilirubin NEGATIVE (Negative); Urine Blood 1+ (Negative); Urine Clarity Clear (Clear); Urine Color Light-Yellow (Yellow); Urine Culture Reflex Order NOT NEEDED; Urine Glucose 4+ (Over) (Negative); Urine Ketones NEGATIVE (Negative); Urine Micro Reflex YN NO BILL MICROSCOPIC; Urine Nitrite NEGATIVE (Negative); Urine Protein 1+ (Negative); Urine RBC 21-50 /HPF (None Seen); Urine Urobilinogen Normal (Normal)
[2024-09-14] MEDS: INSULIN REGULAR (HUMAN) 100 UNIT/ML SQ SCH (16:30)
[2024-09-14] MEDS: METFORMIN HCL 500 MG TAB PO SCH (16:56)
[2024-09-14] MEDS: PANTOPRAZOLE 40MG TABLET PO SCH (16:56)
[2024-09-14] MEDS: FERROUS GLUCONATE 324 MG TAB PO SCH (16:56)
[2024-09-14] MEDS: WARFARIN SODIUM 5 MG TAB PO SCH (17:10)
--- NOTE | 2024-09-14 17:49 | RAD REPORT ---
EXAM: XR Abdomen 1 View (KUB) HISTORY: [facility] constipation COMPARISON: None FINDINGS: Single view of the abdomen shows a nonspecific, nonobstructive bowel gas pattern. Mild stoo l burden throughout the colon. No suspicious calcifications are seen. The bones are unremarkable. IMPRESSION: Nonobstructive bowel gas pattern. Mild stool burden throughout the colon.
[2024-09-14] MEDS: GABAPENTIN 100 MG CAP PO SCH (20:24)
[2024-09-14] MEDS: ATORVASTATIN 10 MG TAB PO SCH (20:25)
[2024-09-14] MEDS: TAMSULOSIN 0.4 MG SR CAP PO SCH (20:25)
[2024-09-14] MEDS: carvediloL 12.5 MG TAB PO SCH (20:25)
[2024-09-14] MEDS: DOCUSATE NA/SENNA CONC 1 TAB PO SCH (20:26)
[2024-09-14] MEDS: GLUCERNA SHAKE 237 ML CAN PO SCH (20:26)
--- NOTE | 2024-09-15 00:51 | HP ---
Date of Admission: 09/14/2024 Time Of Service: 1 p.m. Chief Complaint: "I'm falling a lot at home." History Of Present Illness: Mr. Hayes is a 68-year-old patient with multiple medical problems, i ncluding prior stroke, which affected coordination, balance, and gait; diabetes mellitus type 2; dysl ipidemia; benign prostatic hypertrophy; hypertension; peripheral artery disease; coronary artery dise ase; alcohol abuse; and gout, who has been falling as noted a lot at home. [facility] and hematoma on his buttocks. He was also diagnosed with obstructi ve uropathy with urinary retention and urinary tract infection, right hip fracture, severe anemia, hy pomagnesemia, dehydration with prerenal failure. He received IV hydration due to severe anemia, bloo d transfusion, and electrolytes were addressed. He had DVT prophylaxis, addressing his fluid level w ith intake/output. Tinoco catheters. Strict Is and Os measured. He was evaluated by Physical Therap y and found to have decreased endurance, significant weakness, and difficulty with transferring from bed to chair to a wheelchair and mobilizing. Prior to his bouts of falls, he was independent with ac tivities of daily living, ambulating with a single point cane indoors and outdoors and in the [facility]. He was able to drive and to care for himself independently. However, he now requires at least m inimum assistance for all mobilization, activities of daily living, as he uses a walker at all times and is unsteady with his gait with high tendency to fall. He is medically cleared and now is ready f or aggressive inpatient rehabilitation to help return to his prior level of functioning and reduce hi s risk of rehospitalization. Past Medical And Surgical History: Cervical spine surgery. He has coronary artery bypass grafting, peripheral artery disease, hypertension, dyslipidemia, benign prostatic hypertrophy, diabetes mellitu s, stroke with incoordination, gout, and alcohol use by history. Allergies: NO KNOWN DRUG ALLERGIES. X-rays: On 09/10, pelvic x-ray shows no osseous abnormalities. Pelvic CT scan shows right gluteus m aximus intramuscular hematoma, could not evaluate for active hemorrhage as noted. No fractures or di slocations seen. There is a trabeculated appearance of the urinary bladder suggesting chronic outflo w obstruction. The visualized left ureter is normal. Head CT scan shows chronic senescent changes. No acute intracranial abnormalities. A chest x-ray on 09/10 shows right seventh rib fracture. EKG on 09/10 shows sinus tachycardia, low voltage QRS, borderline ECG. Atrial fibrillation was not prese nt at that time. Medications: Tylenol 500 mg every 4 hours as needed; allopurinol 100 mg daily; Lipitor 10 mg at bedt moise; Coreg 12.5 mg twice daily; Flexeril 10 mg at bedtime; Glucerna 237 mL twice daily; Fergon 324 mg twice daily; Proscar 5 mg daily; gabapentin 100 mg twice daily; milk of magnesia 30 mL daily as need ed for constipation; melatonin 3 mg at bedtime; metformin 1000 mg twice daily; Protonix 40 mg twice d aily; Senokot-S 2 at bedtime; Flomax 0.4 mg at bedtime; Ultram 50 mg every 4 hours as needed; Coumadi n 5 mg on Wednesday, Wednesday, , Wednesday and 7.5 mg on Wednesday, Wednesday, Wednesday. Laboratory Studies: Blood glucose ranged from 135 to 152. White blood cell count 5.6, hemoglobin 9. 3, hematocrit 27.9, platelets 166. Sodium 137, potassium 4.3, glucose 139, BUN 13, creatinine 0.92. Calcium 9.1, magnesium 1.3. Family History: Noncontributory. Social History: The patient lives with family. No alcohol, tobacco, or IV drug use. Single family home. Code Status: Full Code. Review of Systems: Reports some incoordination in upper and lower extremities; some bruising; some pain in the rib fract ure site; and swelling in the buttocks area, where there is a bruise. Otherwise, no fevers or chills . No active psychiatric issues. There is urinary retention. No other positives on the systems revi ew. Physical Examination: Vital Signs: Blood pressure 158/72, pulse 93, respiratory rate 16, temperature 97.3, oxygen saturati on 100%. General: Mr. Hayes is sitting on the side of the bed, getting ready to do physical therapy. Skin: He does have some bruising in the upper and lower extremities. HEENT: Otherwise, he is normocephalic, atraumatic. Sclerae anicteric. Oropharynx is moist. Neck: Supple. Chest: Clear. Neuromuscular: There is some pain in the right rib area, where there is a rib fracture and swelling in the right gluteus area from the hematoma. Otherwise, he is atraumatic. In terms of his cranial n erves, no focal cranial nerve deficits. His coordination is slow, but intact bilaterally. Heel-to-s hin is slow, but intact. He will be ambulated with gait belt and the therapist in tow. Current Level Of Functioning: Currently, Mr. Hayes is supervision for eating, oral hygiene. Mod erate assistance for toileting, showering, upper and lower body dressing, donning and doffing footwea r. Rolling left to right, sit to lying, and lying to sitting on side of bed, moderate assistance req uired. For sit to stand, and transfer from bed to chair to wheelchair to toilet, moderate assistance . Ambulation, moderate assistance with a rolling walker just covering 2 feet. Rehab And Medical Assessment And Plan: Mr. Hayes is admitted to the rehabilitation unit with imp airment category 01, stroke. His impairment group code is 01.3, bilateral involvement. Etiologic di agnosis: Sequelae of stroke. Comorbidities are anemia, chronic kidney disease, decreased mobility, decreased physical functioning, dehydration, hypomagnesemia, recurrent falls, urinary retention, stat us post infection of urinary tract. In addition, he has right buttock hematoma and right seventh rib fracture. Plan: 1.He is going to have physical, occupational, and if need be speech therapy hours, 5 of 7 days. It is noted that the patient has had a chronic issue of very breathy sound in speech, said th at is related to surgery he had in the carotid twice, and there was an injury to the vocal cords pote ntially affecting the recurrent laryngeal and has had a chronic issue of his speech, but denies any s wallowing issues. No choking or coughing with eating. 2.Along with his physical, occupational, and speech therapy, we will continue with management of his medication regimen including the Coumadin, tramadol, Flomax, Senokot, Protonix, metformin, melatonin , milk of magnesia, gabapentin, Proscar. Also for pain, Tylenol. Lipitor for dyslipidemia. Coreg f or heart rate control. Note, the Coumadin will be for his DVT prophylaxis and stroke risk reduction. Comorbidities That Are Impacting Rehabilitation: He is on Coumadin. We will have a target of INR 2. 5 to 3.5. However, the patient has had a history of falling and high risk of additional falls, which puts him at high risk of bleeding, especially at noncompressible sides. Fall precautions to be stri ctly adhered to with all transfers with gait belt and a therapist very close by following at a [facility] hair as he ambulates with a walker, and up and down steps will be very careful, as again falling and impacting any noncompressible sites could result in excessive bleeding. Otherwise, he has had the re nal insufficiency and electrolyte derangements that have to be addressed with fluid management and re placement. Recent urinary tract infection, will be watched for additional evidence of more infection . He does have chronic issues of the vocal cords. We will have to pay close attention to his speech as it is slightly breathy and has a decreased verbal fluency, but not of the cognitive etiology, but because of issues of vocal cord. Rehab Specific Plan: Mr. Hayes will have physical and occupational therapy hours a da y, 5 of 7 days, if need be as he is evaluated by Speech, will determine if he can be helped to improv e his ability to speak more clearly. He will be able to transfer from bed to chair to toilet and to ambulate with a walker and use a wheelchair with modified independence. Also therapy to help him go up and down 10 steps with bilateral handrails, and Speech to help with his cognition to be as good as possible for him to make safe decisions while ambulating and to help again with his speech. Mr. Hayes has a good understanding of the process of admission to rehabilitation unit and how he will benefit from physical, occupational, and speech therapy if need be. He will have 24 hours a day , 7 days a week skilled rehabilitation nursing; daily physician evaluation and management; and Senior Android Developer evaluation and management for discharge planning, home equipment, and continued physical th erapy. If need be, additional help from the hospitalist service will be sought. Admission to the in patient rehabilitation unit is necessary, as the patient will likely worsen again and fall if he is d ischarged to senior living or home. Barriers To Discharge: Mr. Hayes again has had multiple falls and is at high risk of continued f alls. His stroke affected more coordination than his strength and again he is on anticoagulation, wh ich again puts him at high risk of injury and bleeding. He may, depending on how he progresses, have to go to senior living, but the plan is to go home to continue therapy via Home Health. Length Of Stay: About 10 days. Disposition: Home. Continue therapy via Home Health. Prognosis: Good. Code Status: Full Code. Rehab Goals: 1.To become independent with upper and lower body dressing and donning/doffing footwear. 2.Independently mobilize a wheelchair 250 feet and a rolling walker 250 feet. 3.Independently go up and down 10 steps with bilateral handrails. 4.Independently perform his cognitive functioning and increase his ability to speak clearly. The above goals were reviewed with Mr. Hayes, and he is in agreement. By signing this document, I acknowledge I personally performed a full physical examination on Mr. Cyndi terrazas no later than 24 hours after his admission to the inpatient rehabilitation facility and determ ined that he is able to tolerate the above course of treatment at an intensive level for a reasonable period of time. A detailed individualized plan of care for him will be completed by hospital day 4 based on the preadmission screen, history and physical, and therapy evaluations. RAJIV Voice ID: [id number]
[2024-09-15 05:37] LABS: Absolute Eosinophils 0.2 K/uL (0-0.5); Absolute Lymphocytes (CBC) 0.7 K/uL (0.7-4.9); Absolute Monocytes 0.4 K/uL (0.1-1.3); Absolute Neutrophil 3.5 K/uL (1.8-8.0); Basophils % 0.5 % (0-1.3); Hematocrit 28.2 % (39.6-49.0); Hemoglobin 9.4 g/dL (13.6-17.9); MCH 27.7 pg (27.0-35.0); MCHC 33.1 g/dL (32.0-36.0); MCV 83.6 fL (80-100); MPV 8.5 fL (7.6-11.3); Neutrophils % 72.5 % (41.7-73.7); Nucleated Red Blood Cells % 0.2 % (0-0); Platelets 166 thou/uL (152-406); RBC Red Blood Cell Count 3.38 M/uL (4.33-5.43); Red Cell Distribution Width 20.9 % (12.1-15.2)
[2024-09-15 05:44] LABS: PT Prothrombin Time 13.8 SECONDS (9.4-12.5); Protime INR 1.24
[2024-09-15 05:58] LABS: Albumin 2.1 g/dL (3.4-5.0); Anion Gap 9.2 mEq/L (5.0-15.0); Potassium 4.2 mEq/L (3.5-5.1)
[2024-09-15 06:33] LABS: Magnesium 1.1 mg/dL (1.6-2.4)
[2024-09-15] MEDS: MIDODRINE HCL 5 MG TABLET PO SCH (08:00)
[2024-09-15] MEDS: FINASTERIDE 5 MG TAB PO SCH (08:28)
[2024-09-15] MEDS: allopurinoL 100 MG TAB PO SCH (08:28)
[2024-09-15] MEDS: TRAMADOL HCL 50 MG TAB PO PRN (08:33)
[2024-09-15 10:00] LABS: Anisocytosis 1+; Blood Morphology Comment NOTED (NOT SEEN); Differential Total Cells Count 100; Eosinophils 4 % (0-3); Lymphocytes 18 % (15-42); Macrocytosis 1+; Monocytes 6 % (0-10); Platelet Estimate ADEQ; Polychromasia 1+; Segmented Neutrophils 72 % (40-80)
--- NOTE | 2024-09-15 13:36 | P.RH.PN ---
Estimated Length of Stay: 13 Expected Discharge Date: 09/26/24 Discharge Disposition Plan: Home Family Support: Yes Nursing Home Goal: Mobility, Transfers, Self Care Vital Signs: Last Vital Signs Temp 97.7 F 09/15/24 07:32 Pulse 83 09/15/24 08:27 Resp 15 09/15/24 09:33 BP 120/72 09/15/24 08:27 Pulse Ox 96 09/15/24 09:33 Laboratory: Laboratory Last Values WBC 4.80 thou/uL (4.3-10.9) 09/15/24 04:56 RBC 3.38 M/uL (4.33-5.43) L 09/15/24 04:56 Hgb 9.4 g/dL (13.6-17.9) L 09/15/24 04:56 Hct 28.2 % (39.6-49.0) L 09/15/24 04:56 MCV 83.6 fL (80-100) 09/15/24 04:56 MCH 27.7 pg (27.0-35.0) 09/15/24 04:56 MCHC 33.1 g/dL (32.0-36.0) 09/15/24 04:56 RDW 20.9 % (12.1-15.2) H 09/15/24 04:56 Plt Count 166 thou/uL (152-406) 09/15/24 04:56 MPV 8.5 fL (7.6-11.3) 09/15/24 04:56 Neutrophils % 72.5 % (41.7-73.7) 09/15/24 04:56 Lymphocytes % 14.0 % (15.3-44.8) L 09/15/24 04:56 Monocytes % 9.0 % (3.3-12.3) 09/15/24 04:56 Eosinophils % 4.0 % (0-4.4) 09/15/24 04:56 Basophils % 0.5 % (0-1.3) 09/15/24 04:56 Absolute Neutrophils 3.5 K/uL (1.8-8.0) 09/15/24 04:56 Segmented Neutrophils 72 % (40-80) 09/15/24 04:56 Absolute Lymphocytes 0.7 K/uL (0.7-4.9) 09/15/24 04:56 Lymphocytes 18 % (15-42) 09/15/24 04:56 Monocytes 6 % (0-10) 09/15/24 04:56 Absolute Monocytes 0.4 K/uL (0.1-1.3) 09/15/24 04:56 Eosinophils 4 % (0-3) H 09/15/24 04:56 Absolute Eosinophils 0.2 K/uL (0-0.5) 09/15/24 04:56 Absolute Basophils 0.0 K/uL (0-0.5) 09/15/24 04:56 Platelet Estimate Adeq 09/15/24 04:56 Polychromasia 1+ 09/15/24 04:56 Anisocytosis 1+ 09/15/24 04:56 Macrocytosis 1+ 09/15/24 04:56 Morphology Comment Noted (NOT SEEN) 09/15/24 04:56 PT 13.8 SECONDS (9.4-12.5) H 09/15/24 04:56 INR 1.24 09/15/24 04:56 Sodium 134 mEq/L (136-145) L 09/15/24 04:56 Potassium 4.2 mEq/L (3.5-5.1) 09/15/24 04:56 Chloride 105 mEq/L (98-107) 09/15/24 04:56 Carbon Dioxide 24 mEq/L (21-32) 09/15/24 04:56 Anion Gap 9.2 mEq/L (5.0-15.0) 09/15/24 04:56 BUN 14 mg/dL (7-18) 09/15/24 04:56 Creatinine 0.99 mg/dL (0.70-1.30) 09/15/24 04:56 Est GFR (CKD-EPI) 82 ml/min (=/>90) L 09/15/24 04:56 Glucose 141 mg/dL (74-106) H 09/15/24 04:56 POC Glucose 126 mg/dL (65-120) H 09/15/24 11:28 Calcium 9.4 mg/dL (8.5-10.1) 09/15/24 04:56 Magnesium 1.1 mg/dL (1.6-2.4) L 09/15/24 04:56 Albumin 2.1 g/dL (3.4-5.0) L 09/15/24 04:56 Urine Color Light-yellow (Yellow) 09/14/24 12:55 Urine Clarity Clear (Clear) 09/14/24 12:55 Urine pH 6.0 (5.0-7.0) 09/14/24 12:55 Ur Specific [place] 1.021 (1.005-1.030) 09/14/24 12:55 Glucose (UA)(Auto) 4+ (over) (Negative) H 09/14/24 12:55 Urine Ketones Negative (Negative) 09/14/24 12:55 Urine Blood 1+ (Negative) H 09/14/24 12:55 Urine Nitrite Negative (Negative) 09/14/24 12:55 Urine Bilirubin Negative (Negative) 09/14/24 12:55 Urine Urobilinogen Normal (Normal) 09/14/24 12:55 Ur Leukocyte Esterase 25 Higinio/uL (Negative) H 09/14/24 12:55 Urine RBC 21-50 /HPF (None Seen) H 09/14/24 12:55 Urine WBC 5-10 /HPF (<5) 09/14/24 12:55 Ur Squamous Epith Cells <5 /HPF (None Seen) 09/14/24 12:55 Urine Bacteria None seen /HPF (<20) 09/14/24 12:55 Urine Culture Reflexed Not needed 09/14/24 12:55 Urine Total Protein 1+ (Negative) H 09/14/24 12:55 Weight: 171 lb Physician Update: Labs reviewed and are stable. Magnesium is low at 1.1. Start magnesium 1 gram IV then 400 mg bid. Working on bladder training. Pain at max 8/10. Orthostatic to SBP 98. Start midodrine 5 mg bid, YEIMI hose and abdominal binders. Unilateral vocal cord parl. BIMS 15. Mild pain on his hematoma. WC 250', RW 125' x 2. He did well with shower but was tired. Lowest SBP with OT 104. Min assist with ADLs. Comment: skin is intact Summary: Patient's care plan and predatory animal exterminator goals have been reviewed and revised as necessary. Please see the Rehabilitation Signature page for all necessary signatures.
[2024-09-15] MEDS: MAGNESIUM SULFATE 1 gm IVPB 1 GM/100 ML BAG IV ONE (14:52)
[2024-09-15] MEDS: LIDOCAINE 4% PATCH TOP SCH (14:52)
[2024-09-15 16:18] LABS: Prealbumin 12.7 mg/dL (20-40)
[2024-09-15] MEDS: WARFARIN SODIUM 7.5 MG TAB PO SCH (17:18)
[2024-09-15] MEDS: MAGNESIUM OXIDE 400 MG TAB PO SCH (19:41)
[2024-09-15] MEDS: MELATONIN 3 MG TABLET PO PRN (21:09)
[2024-09-16] MEDS: MIDODRINE HCL 5 MG TABLET PO SCH ×2 (07:05→11:48)
[2024-09-16 07:17] LABS: PT Prothrombin Time 15.7 SECONDS (9.4-12.5); Protime INR 1.42
[2024-09-16] MEDS ORDERED: LIDOCAINE 4% PATCH TOP SCH (08:00)
[2024-09-17 06:21] LABS: PT Prothrombin Time 19.3 SECONDS (9.4-12.5); Protime INR 1.75
[2024-09-17 06:34] LABS: Anion Gap 10.3 mEq/L (5.0-15.0); Magnesium 1.3 mg/dL (1.6-2.4); Potassium 4.3 mEq/L (3.5-5.1)
[2024-09-17] MEDS: INSULIN REGULAR (HUMAN) 100 UNIT/ML SQ SCH (08:00)
[2024-09-17] MEDS: Magnesium Sulfate 2gm IVPB 2 G/50 ML BAG IV ONE (11:17)
[2024-09-17] MEDS: LIDOCAINE 4% PATCH TOP SCH (11:17)
[2024-09-17] MEDS: SODIUM CHLORIDE 1 GM TAB PO SCH (16:59)
[2024-09-17] MEDS ORDERED: ALBUTEROL INHALER 200 PUFF/6.7 GM IH PRN (17:53)
[2024-09-17] MEDS ORDERED: MAGNESIUM OXIDE 400 MG TAB PO SCH (20:00)
[2024-09-18 06:01] LABS: PT Prothrombin Time 23.5 SECONDS (9.4-12.5); Protime INR 2.15
[2024-09-18 06:20] LABS: Anion Gap 9.5 mEq/L (5.0-15.0); Magnesium 1.6 mg/dL (1.6-2.4); Potassium 4.5 mEq/L (3.5-5.1)
[2024-09-18] MEDS: GUAIFENESIN 600 MG SA TAB PO SCH (07:13)
[2024-09-18] MEDS ORDERED: BENZONATATE 100 MG CAP PO PRN (13:26)
[2024-09-18] MEDS: TRAZODONE 50 MG TABLET PO PRN (20:08)
--- NOTE | 2024-09-18 23:21 | PN ---
Date of Progress Note: 09/18/2024 Time Of Service: 1:10 p.m. Subjective: Mr. Hayes is doing well. Denies any fall so far while in the unit and is very happy with his therapy. He does have some decrease in his ability to transfer, mobilize and ambulate and wants to work hard on that. Objective: No fevers, chills, myalgias, arthralgias. No rash, headache, weight change. No other is sues or complaints. Physical Examination: Vital Signs: Blood pressure which are orthostatics lying 145/78, pulse 80, sitting 119/64, pulse of 82, and standing blood pressure dropped to 92/52, pulse of 88. The patient was slightly symptomatic. HEENT: Otherwise, he is normocephalic, atraumatic. Sclerae anicteric. Neuro: In terms of his stroke sequelae, it is more of incoordination in upper and lower extremities, poor balance than focal weakness. Laboratory Studies: His INR is 2.15. Sodium 134, potassium 4.5, chloride 102, carbon dioxide 27, BU N 19, creatinine 1.11, glucose 137, calcium 10.0, magnesium 1.6. Medications: Tylenol 500 mg every 4 hours as needed, albuterol nebulizer 2 puffs every 6 hours as ne eded, allopurinol 100 mg daily, Lipitor 10 mg at bedtime, Tessalon Perles 100 mg every 6 hours as nee ded, Coreg 12.5 mg twice daily, Flexeril 10 mg at bedtime, Glucerna shake 237 mL twice daily, Fergon 325 mg twice daily, Proscar 5 mg daily, gabapentin 100 mg twice daily, Mucinex 600 mg twice daily, li docaine patch apply topically daily, milk of magnesia 30 mL daily for constipation, magnesium oxide 4 00 mg twice daily, melatonin 3 mg at bedtime, Glucophage 1000 mg twice daily, midodrine 5 mg in the m orning and at noon, Protonix 40 mg twice daily, Senokot-S 2 tablets at bedtime, sodium chloride 1 g t wice daily, Flomax 0.4 mg at bedtime, and Coumadin is 5 mg on Wednesday, Wednesday, , Wednesday and 7.5 mg on Wednesday, Wednesday, Wednesday. Progress Made With Physical, Occupational, And Speech Therapy: With physical therapy today, complete d ambulation 500 feet with a rolling walker, another 125 feet with a rolling walker and contact guard assistance. Ascended and descended 15 steps with bilateral handrails with independence. Supine-to- sit transfer done with standby assistance. With occupational therapy, engaged bilateral lower extrem ity exercises with a Rollator. He did have partial assistance for donning and doffing socks, supervi leonardo for depdim-ex-imq transfer and bfg-eq-ibgnb transfers. With speech, demonstrated recall of 3 of 3 unrelated pictures after 5 and 15 minutes delay with 100% accuracy. The patient demonstrated conv ergent naming with 100% accuracy and identified occlusions to concrete categories with 90% accuracy. Assessment: Mr. Hayes is a 68-year-old patient, admitted to rehabilitation unit with sequelae of stroke, from which he is recovering in an excellent fashion. He still has comorbidities of decrease d mobility, decreased physical functioning, hypomagnesemia, recurrent falls, chronic kidney disease, chronic anemia. Plan: 1.He will continue with physical, occupational, and speech therapy for 3.5 hours, 5 of 7 days. 2.His list of comorbid conditions and medications have been noted. Those will be continued unchange d as his pain addressed adequately. Stroke risk reduction addressed. Issues of sleep also addressed and bowel movements. FILEMON/MODL Voice ID: [id number] Report ID: [id number]
[2024-09-19 06:37] LABS: PT Prothrombin Time 26.6 SECONDS (9.4-12.5); Protime INR 2.44
[2024-09-19 14:57] LABS: Anion Gap 11.9 mEq/L (5.0-15.0); Potassium 4.9 mEq/L (3.5-5.1)
[2024-09-19] MEDS ORDERED: D10W 125 ML IV PRN (16:46)
[2024-09-19] MEDS ORDERED: GLUCAGON 1 MG/VIAL IM PRN (16:46)
[2024-09-19] MEDS: Magnesium Sulfate 2gm IVPB 2 G/50 ML BAG IV ONE (16:57)
[2024-09-19] MEDS: MAGNESIUM OXIDE 400 MG TAB PO SCH (21:04)
--- NOTE | 2024-09-19 23:13 | PN ---
Date of Progress Note: 09/19/2024 Time Of Service: 1:10 p.m. Subjective: Mr. Hayes is resting in bed. He says he is doing fairly well. Still of course has issues with his voice due to chronic vocal cord paralysis that is unilateral and otherwise he is britton ng good progress, his ability to stand, ambulate, transfer, and mobilize. Objective: No fevers, chills, nausea, vomiting. No myalgias, arthralgias, rash, headache, weight ch roberto carlos. Physical Examination: Vital Signs: Blood pressure with orthostasis, he has lying 120/64, pulse 82, on sitting 128/65, puls e 86, and standing 104/57, pulse 91. Neuro: Otherwise, his big issue is the incoordination of gait, balance, and he is with mild diffuse weakness and very difficult speech because of vocal cord paralysis. Laboratory Studies: Today's INR is 2.44, and his sodium is 135, potassium 4.9, chloride 104, carbon dioxide 24, BUN 27, creatinine 1.38, indicating the patient is somewhat dehydrated. His calcium is 9 .4. Note, his creatinine was 0.94 on the 17th and 2 days later is 1.38 and hydration will be encoura ged. His magnesium is dropped down again to 1.3 from 1.6. He will have 2 gram of magnesium and sodi um chloride replacement is on board. Progress Made With Physical, Occupational, And Speech Therapy: With physical therapy today, he ambul ated with a rolling walker 250 feet twice, 325 feet once, 150 feet with contact guard assistance. He ascended and descended 15 steps with bilateral handrails independently. With occupational therapy, independent with bed mobilization, [id number]-br-[id number], also independent transfer from supervision actually was required for ambulation from room to toilet with a Rollator to complete his toileting. With sary colindres, short-term recall demonstrated 4/4 unrelated pictures after 5 minutes. Words were sequenced accu rately with 100% accuracy during a sequencing task. He was 95% intelligible at conversational level while using diaphragmatic breathing. Assessment: Mr. Hayes is a 68-year-old patient in the rehabilitation unit with sequelae of chron ic stroke. He does have chronic vocal cord paralysis with difficulty speaking due to very breathy so unding voice. His comorbidities do include decreased mobility, decreased physical functioning. He h as hypomagnesemia which is being replaced. He has some increasing dehydration and chronic kidney iss ues. Hydration will be encouraged. He has risk of falling and chronic anemia. Plan: 1.Continue with physical, occupational, and speech therapy for 3.5 hours, 5 of 7 days. 2.Eight glasses of water 8 ounces each. 3.2 g of magnesium IV followed by 800 mg twice daily oral. 4.His hemoglobin and hematocrit will be followed. He has mild anemia of 9.4. He has Hemocyte and h is INR is therapeutic at 2.44 that will be followed. He is on Coumadin for that and again continue p hysical, occupational, and speech therapy 3.5 hours, 5 of 7 days. FILEMON/MOIZ Voice ID: [id number] Report ID: [id number]
[2024-09-20 06:27] LABS: PT Prothrombin Time 30.1 SECONDS (9.4-12.5); Protime INR 2.77
[2024-09-20 06:47] LABS: Anion Gap 6.8 mEq/L (5.0-15.0); Potassium 4.8 mEq/L (3.5-5.1)
[2024-09-20] MEDS: MAGNESIUM SULFATE 1 gm IVPB 1 GM/100 ML BAG IV ONE (16:29)
[2024-09-20] MEDS: allopurinoL 100 MG TAB PO SCH (19:33)
--- NOTE | 2024-09-21 03:37 | PN ---
Date of Progress Note: 09/20/2024 Time Of Service: 1:10 p.m. Subjective: Mr. Hayes is resting. He of course has the very breathy voice because of a chronic vocal cord injury. No big changes there. Says things are doing better in terms of how he is sleepin g and mobilizing. Happy so far with how his balance is improving. Objective: No fevers, chills, nausea, vomiting, myalgias, arthralgias. No other complaints. Physical Examination: Vital Signs: Blood pressure is in terms of orthostatics while lying 131/65, pulse 79; while sitting 119/67, pulse of 84; while standing 84/56, pulse 87. Neurologic: Otherwise, he has mild incoordination of upper and lower extremities, and no focal weakn ess. Stroke affected more coordination, balance, gait and his weakness. Laboratory Studies: INR today 2.77. His uric acid level is 5.3. He did have some pain in the right great toe interphalangeal joint. There was some swelling and redness, and uric acid was drawn and t hat was normal. He did receive another 2 g total today and yesterday in additional to another gram o f magnesium, and now his magnesium level is normal at 1.7. His magnesium dosage was increased to 800 mg twice daily from 400 mg twice daily. Sodium is still low at 132, potassium 4.8, chloride 102, BU N 26, creatinine 1.23, glucose up to 143. Calcium 10.0, and magnesium 1.7. Progress Made With Physical, Occupational, And Speech Therapy: With physical therapy, today, complet ed gait training with a rollator 250 feet twice with standby to contact guard assistance. Did work o n balance training exercises. Bed mobility done with standby assistance. Multiple [id number] huerta sfers done with standby assistance. With occupational therapy, independent with bed mobilization, si t-to-stand transfers, and ambulated from room to toilet with a rollator, all independently. Toilet h ygiene, independent. With speech, did show knowledge of cause and effect relationships with scenario s described with 90% accuracy and gave solutions to each problem. Met 4/4 short-term goals establish ed at initial evaluation. Abstract/divergent naming exhibited with 90% accuracy without cues. Mr. Hayes is making great progress overall with his physical, occupational, and speech therapy. He is admitted with sequelae of stroke, from which he is recovering well. He does have some swelling in the right great toe, which is likely a gout flare-up, although uric acid level is now normal. Hi s allopurinol dose has been adjusted to 100 mg twice daily. He continued magnesium oxide now at 800 mg twice daily and after receiving IV magnesium. He still has low sodium. He will have 1 g sodium c hloride now twice daily. Continue Flomax for urinary retention. The patient did well with bladder t raining. Still has Tinoco catheter in place and will be following up with Urology. His INR is therap eutic. He will continue with physical, occupational, and speech therapy 3.5 hours, 5 of 7 days and a ll comorbid condition medications as noted with appropriate changes. FILEMON/MOIZ Voice ID: [id number] Report ID: [id number]
[2024-09-21 06:14] LABS: Absolute Eosinophils 0.2 K/uL (0-0.5); Absolute Monocytes 0.5 K/uL (0.1-1.3); Absolute Neutrophil 4.3 K/uL (1.8-8.0); Basophils % 0.3 % (0-1.3); Eosinophils % 3.2 % (0-4.4); Hematocrit 31.5 % (39.6-49.0); Hemoglobin 10.5 g/dL (13.6-17.9); Lymphocytes % 16.1 % (15.3-44.8); MCH 28.4 pg (27.0-35.0); MCHC 33.4 g/dL (32.0-36.0); MCV 85.1 fL (80-100); MPV 8.5 fL (7.6-11.3); Monocytes % 8.5 % (3.3-12.3); Neutrophils % 71.9 % (41.7-73.7); Nucleated Red Blood Cells % 0.1 % (0-0); Platelets 282 thou/uL (152-406); RBC Red Blood Cell Count 3.71 M/uL (4.33-5.43); Red Cell Distribution Width 21.2 % (12.1-15.2)
[2024-09-21 06:16] LABS: PT Prothrombin Time 34.2 SECONDS (9.4-12.5); Protime INR 3.16
[2024-09-21 06:34] LABS: Albumin 2.8 g/dL (3.4-5.0); Anion Gap 6.9 mEq/L (5.0-15.0); Magnesium 1.9 mg/dL (1.6-2.4); Potassium 4.9 mEq/L (3.5-5.1); Prealbumin 14.2 mg/dL (20-40)
[2024-09-21] MEDS: MIDODRINE HCL 5 MG TABLET PO SCH (08:10)
[2024-09-21] MEDS: allopurinoL 100 MG TAB PO SCH (15:36)
[2024-09-21] MEDS: WARFARIN SODIUM 5 MG TAB PO SCH (16:42)
--- NOTE | 2024-09-22 01:04 | PN ---
Date of Progress Note: 09/21/2024 Time Of Service: 1:20 p.m. Subjective: Mr. Hayes is resting comfortably. Speech pathologist at bedside. He had some quest ions that were answers and he is doing better about his pain, and of course, there is big issue of di fficulty with articulation due to chronic vocal cord paralysis still present and he usually speaks in 1 word communication at the time due to great difficulty controlling breathing because of the vocal cord paralysis. Objective: No fevers, chills, nausea, vomiting, myalgias. Physical Examination: Vital Signs: Blood pressure 120/67, pulse of 90, respiratory rate of 18, temperature 97.7. Neurologic: Shows incoordination as his major neurologic deficit. It is more in lower than upper ex tremity resulting in risk of falling. However, despite this, he is doing excellent in terms of mobil ization and transfers. Laboratory Studies: White blood cell count 5.9, hemoglobin 10.5, platelets are 282. Today, his INR is 3.16. His sodium today 136, potassium 4.9, chloride 105, carbon dioxide 29, BUN 29, creatinine 1. 36, glucose 133. His magnesium is 1.9 and his calcium is 10.0, albumin 2.8, prealbumin 14.2. Progress Made With Physical, Occupational, And Speech Therapy: With Physical Therapy today, ambulate d 250 feet twice with a Rollator and 150 feet once independently. Ascended and descended 20 steps wi th bilateral handrails independently. With occupational therapy, independent with bed mobilization, room to gym independent, room to bathroom also independent with a Rollator, toilet hygiene independen t and excellent standing at the sink, finishing his ADLs. With speech, recalled 5 out of 5 words aft er 5 minutes with minimum cues. Problem-solving for activities of daily living and independent activ ities demonstrated 100% accuracy and minimum verbal props. Organizational thinking for abstract conc epts demonstrated with 80% accuracy and moderate assistance. Assessment And Plan: Mr. Hayes is a 68-year-old patient admitted to rehabilitation unit with seq uelae of stroke, which affected both coordination and strength and/or sensory loss. He has chronic p aralysis of vocal cord, unilateral paralysis and still is doing very well despite that. He is workin g hard with Speech to improve his communication. His swallowing is doing well. He has comorbidities of decreased mobility, decreased physical functioning, which have all improved very well. His hypon atremia improved. Electrolytes are much improved. He does have some pain in the right big toe and afua hernnadez now has allopurinol 100 mg 3 times daily. Again, uric acid levels are normal. He, however, is doi ng better when it comes to that. Does have some knee pain and has lidocaine patches on board. Magne sium on board for muscle spasms. Does have Flomax for urinary retention and he has a therapeutic INR . His medication list continued currently. He is doing well and will be discharged in the morning t o continue therapy via Home Health. He will follow up with his primary care physician and neurologis t as scheduled. FILEMON/MOIZ Voice ID: [id number] Report ID: [id number]
[2024-09-22 06:29] LABS: PT Prothrombin Time 30.1 SECONDS (9.4-12.5); Protime INR 2.77
--- NOTE | 2024-09-22 09:25 | P.RH.PN ---
Estimated Length of Stay: 13 Expected Discharge Date: 09/23/24 Discharge Disposition Plan: Home Family Support: Yes Assisted Goal: Mobility, Transfers, Self Care Vital Signs: Last Vital Signs Temp 97.5 F 09/22/24 08:00 Pulse 80 09/22/24 08:00 Resp 16 09/22/24 08:00 BP 112/68 09/22/24 08:00 Pulse Ox 97 09/22/24 08:00 Laboratory: Laboratory Last Values WBC 5.90 thou/uL (4.3-10.9) 09/21/24 05:29 RBC 3.71 M/uL (4.33-5.43) L 09/21/24 05:29 Hgb 10.5 g/dL (13.6-17.9) L 09/21/24 05:29 Hct 31.5 % (39.6-49.0) L 09/21/24 05:29 MCV 85.1 fL (80-100) 09/21/24 05:29 MCH 28.4 pg (27.0-35.0) 09/21/24 05:29 MCHC 33.4 g/dL (32.0-36.0) 09/21/24 05:29 RDW 21.2 % (12.1-15.2) H 09/21/24 05:29 Plt Count 282 thou/uL (152-406) 09/21/24 05:29 MPV 8.5 fL (7.6-11.3) 09/21/24 05:29 Neutrophils % 71.9 % (41.7-73.7) 09/21/24 05:29 Lymphocytes % 16.1 % (15.3-44.8) 09/21/24 05:29 Monocytes % 8.5 % (3.3-12.3) 09/21/24 05:29 Eosinophils % 3.2 % (0-4.4) 09/21/24 05:29 Basophils % 0.3 % (0-1.3) 09/21/24 05:29 Absolute Neutrophils 4.3 K/uL (1.8-8.0) 09/21/24 05:29 Segmented Neutrophils 72 % (40-80) 09/15/24 04:56 Absolute Lymphocytes 1.0 K/uL (0.7-4.9) 09/21/24 05:29 Lymphocytes 18 % (15-42) 09/15/24 04:56 Monocytes 6 % (0-10) 09/15/24 04:56 Absolute Monocytes 0.5 K/uL (0.1-1.3) 09/21/24 05:29 Eosinophils 4 % (0-3) H 09/15/24 04:56 Absolute Eosinophils 0.2 K/uL (0-0.5) 09/21/24 05:29 Absolute Basophils 0.0 K/uL (0-0.5) 09/21/24 05:29 Platelet Estimate Adeq 09/15/24 04:56 Polychromasia 1+ 09/15/24 04:56 Anisocytosis 1+ 09/15/24 04:56 Macrocytosis 1+ 09/15/24 04:56 Morphology Comment Noted (NOT SEEN) 09/15/24 04:56 PT 30.1 SECONDS (9.4-12.5) H 09/22/24 05:12 INR 2.77 09/22/24 05:12 Sodium 136 mEq/L (136-145) D 09/21/24 05:29 Potassium 4.9 mEq/L (3.5-5.1) 09/21/24 05:29 Chloride 105 mEq/L (98-107) 09/21/24 05:29 Carbon Dioxide 29 mEq/L (21-32) 09/21/24 05:29 Anion Gap 6.9 mEq/L (5.0-15.0) 09/21/24 05:29 BUN 29 mg/dL (7-18) H 09/21/24 05:29 Creatinine 1.36 mg/dL (0.70-1.30) H 09/21/24 05:29 Est GFR (CKD-EPI) 56 ml/min (=/>90) L 09/21/24 05:29 Glucose 133 mg/dL (74-106) H 09/21/24 05:29 POC Glucose 117 mg/dL (65-120) 09/16/24 16:17 Hemoglobin A1c 5.8 % (4.2-6.3) 09/15/24 04:56 Uric Acid 5.3 mg/dL (3.5-7.2) 09/20/24 16:13 Calcium 10.0 mg/dL (8.5-10.1) 09/21/24 05:29 Magnesium 1.9 mg/dL (1.6-2.4) 09/21/24 05:29 Albumin 2.8 g/dL (3.4-5.0) L 09/21/24 05:29 Prealbumin 14.2 mg/dL (20-40) L 09/21/24 05:29 Urine Color Light-yellow (Yellow) 09/14/24 12:55 Urine Clarity Clear (Clear) 09/14/24 12:55 Urine pH 6.0 (5.0-7.0) 09/14/24 12:55 Ur Specific [place] 1.021 (1.005-1.030) 09/14/24 12:55 Glucose (UA)(Auto) 4+ (over) (Negative) H 09/14/24 12:55 Urine Ketones Negative (Negative) 09/14/24 12:55 Urine Blood 1+ (Negative) H 09/14/24 12:55 Urine Nitrite Negative (Negative) 09/14/24 12:55 Urine Bilirubin Negative (Negative) 09/14/24 12:55 Urine Urobilinogen Normal (Normal) 09/14/24 12:55 Ur Leukocyte Esterase 25 Higinio/uL (Negative) H 09/14/24 12:55 Urine RBC 21-50 /HPF (None Seen) H 09/14/24 12:55 Urine WBC 5-10 /HPF (<5) 09/14/24 12:55 Ur Squamous Epith Cells <5 /HPF (None Seen) 09/14/24 12:55 Urine Bacteria None seen /HPF (<20) 09/14/24 12:55 Urine Culture Reflexed Not needed 09/14/24 12:55 Urine Total Protein 1+ (Negative) H 09/14/24 12:55 Weight: 171 lb Wound Present: No Closed Surgical Incision Present: No Negative Pressure Wound Therapy Present: No Physician Update: Labs reviewed and are stable. SLUMS 22, BIMS15, dysphonia well managed. Met all STG and LTG, RW 250' up and down 15 steps. Met all occupational therapy goals. Got up from mat with independence. Comment: skin is intact Summary: Patient's care plan and senior care goals have been reviewed and revised as necessary. Please see the Rehabilitation Signature page for all necessary signatures.
[2024-09-22] MEDS ORDERED: GUAIFENESIN 600 MG SA TAB PO PRN (10:18)
[2024-09-22] MEDS: WARFARIN SODIUM 7.5 MG TAB PO SCH (17:18)
[2024-09-22] MEDS: carvediloL 12.5 MG TAB PO SCH (20:00)
[2024-09-23 05:38] LABS: PT Prothrombin Time 28.8 SECONDS (9.4-12.5); Protime INR 2.65
[2024-09-23 07:06] VITALS: TEMP 97.6
[2024-09-23 13:20] VITALS: BP 113/60
== END 2024-09-23 10:35 | disposition home health service (06) | DRG 57 ==
LOC: 5TH 10:37
PROVIDERS: ADMIT Psychiatry & Neurology Neurology with Special Qualifications in Child Neurology; ATTEND Psychiatry & Neurology Neurology with Special Qualifications in Child Neurology
DX: I69.398 Other sequelae of cerebral infarction (principal); E87.1 Hypo-osmolality and hyponatremia; R26.89 Other abnormalities of gait and mobility; R27.8 Other lack of coordination; S30.0XXD Contusion of lower back and pelvis, subsequent encounter; S22.31XD Fracture of one rib, right side, subsequent encounter for fracture with routine healing; S19.8 Other specified injuries of neck; E86.0 Dehydration; N40.1 Benign prostatic hyperplasia with lower urinary tract symptoms; R33.8 Other retention of urine; D64.9 Anemia, unspecified; I73.9 Peripheral vascular disease, unspecified; E83.42 Hypomagnesemia; I25.10 Atherosclerotic heart disease of native coronary artery without angina pectoris; E78.5 Hyperlipidemia, unspecified; F10.10 Alcohol abuse, uncomplicated; E11.22 Type 2 diabetes mellitus with diabetic chronic kidney disease; I12.9 Hypertensive chronic kidney disease with stage 1 through stage 4 chronic kidney disease, or unspecified chronic kidney disease; N18.9 Chronic kidney disease, unspecified
CPT/HCPCS: 36415; 74018; 80048; 81001; 82040; 82947; 83036; 83735; 84134; 84550; 85025; 85610; 87086; 87088; 92523; 97110; 97112; 97116; 97129; 97162; 97165; 97530; 97542; J2003; J3475; J3535

== ENCOUNTER 2024-10-20 12:20 | Emergency (ER) | payer OTHER ==
--- NOTE | 2024-10-20 12:50 | ER ---
Nurse's Notes [facility] Name: Ba Ortiz Age: 69 yrs Sex: Male : 1955 Arrival Date: 10/20/2024 Time: 12:20 Bed 8 Private MD: Diagnosis: Torres catheter removal Presentation: 10/20 12:49 Chief complaint: Patient states: here to have torers catheter removed that was placed on cm10 09/10. Coronavirus screen: Client denies travel out of the [place] in the last 14 days. Ebola Screen: Patient denies travel to an Ebola-affected area in the 21 days before illness onset. Initial Sepsis Screen: Does the patient meet any 2 criteria? HR > 90 bpm. Does the patient have a suspected source of infection? No. Patient's initial sepsis screen is negative. Risk Assessment: Do you want to hurt yourself or someone else? Patient reports no desire to harm self or others. Onset of symptoms was October 20, 2024. 12:49 Method Of Arrival: Ambulatory cm10 12:49 Acuity: BETHEL 5 cm10 Triage Assessment: 12:50 General: Appears in no apparent distress. comfortable, Behavior is calm, cooperative. cm10 Pain: Denies pain. Neuro: No deficits noted. Level of Consciousness is awake, alert, obeys commands, Oriented to person, place, time, situation, Appropriate for age. Respiratory: No deficits noted. Airway is patent Respiratory effort is even, unlabored, Respiratory pattern is regular, symmetrical. Historical: - Allergies: 12:50 No Known Allergies; cm10 - PMHx: 12:50 Alcoholism; Arthritis; BPH; CVA; Diabetes - NIDDM; GERD; Gout; hiatal hernia; cm10 Hyperlipidemia; Hypertension; PAD; 13:00 vocal cord problem; aa5 - Immunization history:: Adult Immunizations up to date. - Infectious Disease History:: Denies. - Social history:: Smoking status: unknown. Screenin:00 [facility] ED Fall Risk Assessment (Adult) History of falling in the last 3 months, aa5 including since admission Yes- fall prone (multiple falls) (3 pts) Confusion or Disorientation No (0 pts) Intoxicated or Sedated No (0 pts) Impaired Gait Yes (1 pt) Mobility Assist Device Used Yes (1 pt) Altered Elimination Yes (1 pt) Score/Fall Risk Level 3 or more points = High Risk Oriented to surroundings, Maintained a safe environment, Educated pt \T\ family on fall prevention, incl call for assistance when getting out of bed, Assessed \T\ reinforced patient's understanding of fall precautions, Hourly rounding (assess needs \T\ fall precautionary measures) done. Abuse screen: Denies threats or abuse. Nutritional screening: No deficits noted. Tuberculosis screening: No symptoms or risk factors identified. Assessment: 13:00 General: Appears comfortable, Behavior is calm, cooperative. Pain: Denies pain. Neuro: aa5 Level of Consciousness is awake, alert, obeys commands, Oriented to person, place, time, situation, Speech is clear but slow, pt reports damage to vocal cords . Cardiovascular: Patient's skin is warm and dry. Respiratory: Airway is patent Respiratory effort is even, unlabored, Respiratory pattern is regular, symmetrical. GI: Abdomen is round non-distended, Abd is soft and non tender X 4 quads. : Torres in place to gravity drainage. EENT: No signs and/or symptoms were reported regarding the EENT system. Derm: Skin is pink, warm \T\ dry. Musculoskeletal: Pt uses walker to ambulate. 13:15 Reassessment: Patient is alert, oriented x 3, equal unlabored respirations, skin aa5 warm/dry/pink. Vital Signs: 12:49 BP 155 / 85; Pulse 94; Resp 19; Temp 97.6; Pulse Ox 100% on R/A; Weight 72.57 kg; Pain cm10 0/10; 12:49 Pain Scale: Adult cm10 ED Course: 12:23 Patient arrived in ED. ra3 12:24 Chloe Giordano MD is Attending Physician. sp3 12:50 Triage completed. cm10 12:50 Arm band placed on right wrist. Patient placed in an exam room, on a stretcher. cm10 13:00 Patient has correct armband on for positive identification. Bed in low position. Call aa5 light in reach. Side rails up X 1. 13:01 Pilar Cardenas, RN is Primary Nurse. aa5 13:02 Patient tolerated well. Torres cath removed intact, balloon deflated. aa5 13:15 No provider procedures requiring assistance completed. Patient did not have IV access aa5 during this emergency room visit. Administered Medications: No medications were administered Medication: 13:00 VIS not applicable for this client. aa5 Outcome: 12:49 Discharge ordered by . spYvonne 13:15 Discharged to home ambulatory, with walker aa5 13:15 Condition: stable 13:15 Discharge instructions given to patient, Instructed on discharge instructions, follow up and referral plans. Demonstrated understanding of instructions, follow-up care, 13:19 Patient left the ED. Signatures: Pilar Cardenas RN RN aa5 Kristal Lang RN RN Chloe Giordano MD MD sp3 Natalie Tolbert RN RN cm10 Ksenia Lui 3
--- NOTE | 2024-10-20 12:50 | EDPHYS ---
Physician Documentation [facility] Name: Ba Ortiz Age: 69 yrs Sex: Male : 1955 Arrival Date: 10/20/2024 Time: 12:20 Bed 8 Private MD: ED Physician Chloe Giordano HPI: 10/20 12:48 This 69 yrs old Male presents to ER via Unassigned with complaints of Problem With sp3 Urinary Catheter. 12:48 69-year-old male presents to the ED for chief complaint wanting his Torres catheter sp3 removed. Torres catheter was placed here at this hospital while he was an inpatient on September 10 due to urinary retention. Patient states his doctor told him to come in to get it removed. He denies any symptoms, pain, fever, burning, rash or any other signs or symptoms on ROS at this time. He has no somatic complaint other than requesting Torres catheter removal.. Historical: - Allergies: 12:50 No Known Allergies; cm10 - PMHx: 12:50 Alcoholism; Arthritis; BPH; CVA; Diabetes - NIDDM; GERD; Gout; hiatal hernia; cm10 Hyperlipidemia; Hypertension; PAD; 13:00 vocal cord problem; aa5 - Immunization history:: Adult Immunizations up to date. - Infectious Disease History:: Denies. - Social history:: Smoking status: unknown. ROS: 12:48 Constitutional: Negative for fever, chills, and weight loss, Eyes: Negative for injury, sp3 pain, redness, and discharge, ENT: Negative for injury, pain, and discharge, Neck: Negative for injury, pain, and swelling, Cardiovascular: Negative for chest pain, palpitations, and edema, Respiratory: Negative for shortness of breath, cough, wheezing, and pleuritic chest pain, Abdomen/GI: Negative for abdominal pain, nausea, vomiting, diarrhea, and constipation, Back: Negative for injury and pain, MS/Extremity: Negative for injury and deformity, Skin: Negative for injury, rash, and discoloration, Neuro: Negative for headache, weakness, numbness, tingling, and seizure, Psych: Negative for depression, anxiety, suicide ideation, homicidal ideation, and hallucinations, Allergy/Immunology: Negative for hives, rash, and allergies, Endocrine: Negative for neck swelling, polydipsia, polyuria, polyphagia, and marked weight changes, Hematologic/Lymphatic: Negative for swollen nodes, abnormal bleeding, and unusual bruising, 12:48 All other systems are negative, Exam: 12:49 Constitutional: This is a well developed, well nourished patient who is awake, alert, sp3 and in no acute distress. Head/Face: Normocephalic, atraumatic. Eyes: Pupils equal round and reactive to light, extra-ocular motions intact. Lids and lashes normal. Conjunctiva and sclera are non-icteric and not injected. Cornea within normal limits. Periorbital areas with no swelling, redness, or edema. ENT: Nares patent. No nasal discharge, no septal abnormalities noted. External auditory canals are clear. Oropharynx with no redness, swelling, or masses, exudates, or evidence of obstruction, uvula midline. Mucous membranes moist. Neck: Trachea midline, no thyromegaly or masses palpated, and no cervical lymphadenopathy. Supple, full range of motion without nuchal rigidity, or vertebral point tenderness. No Meningismus. Chest/axilla: Normal chest wall appearance and motion. Nontender with no deformity. No lesions are appreciated. Cardiovascular: Regular rate and rhythm with a normal S1 and S2. No gallops, murmurs, or rubs. Normal PMI, no JVD. No pulse deficits. Respiratory: Lungs have equal breath sounds bilaterally, clear to auscultation and percussion. No rales, rhonchi or wheezes noted. No increased work of breathing, no retractions or nasal flaring. Abdomen/GI: Soft, non-tender, with normal bowel sounds. No distension or tympany. No guarding or rebound. No evidence of tenderness throughout. Back: No spinal tenderness. No costovertebral tenderness. Full range of motion. Male : Normal genitalia with no discharge or lesions. Skin: Warm, dry with normal turgor. Normal color with no rashes, no lesions, and no evidence of cellulitis. MS/ Extremity: Pulses equal, no cyanosis. Neurovascular intact. Full, normal range of motion. Neuro: Awake and alert, GCS 15, oriented to person, place, time, and situation. Cranial nerves II-XII grossly intact. Motor strength 5/5 in all extremities. Sensory grossly intact. Cerebellar exam normal. Normal gait. Vital Signs: 12:49 BP 155 / 85; Pulse 94; Resp 19; Temp 97.6; Pulse Ox 100% on R/A; Weight 72.57 kg; Pain cm10 0/10; 12:49 Pain Scale: Adult cm10 MDM: 12:45 Medical Screening Exam initiated sp3 12:49 Data reviewed: vital signs, nurses notes. ED course: Torres catheter will be removed. No sp3 other intervention indicated in the ED. I am not suspicious of UTI.. 10/20 13:02 Order name: Cath: remove torres; Complete Time: 13:02 aa5 Administered Medications: No medications were administered Disposition Summary: 10/20/24 12:49 Discharge Ordered Notes: Location: Home sp3 Condition: Stable sp3 Diagnosis - Torres catheter removal sp3 Followup: sp3 - With: Private Physician - When: Upon discharge from the Emergency Department - Reason: Continuance of care Discharge Instructions: - Discharge Summary Sheet sp3 - Indwelling Urinary Catheter Removal at Home, Male sp3 Forms: - Medication Reconciliation Form sp3 - Antibiotic Education sp3 - Prescription Opioid Use sp3 - Patient Portal Instructions sp3 - Leadership Thank You Letter sp3 Signatures: Pilar Cardenas, RN RN aa5 Chloe Giordano MD MD sp3 Natalie Tolbert, RN RN cm10
[2024-10-20 13:24] VITALS: BP 155/85; TEMP 97.6; O2SAT 100
== END 2024-10-20 13:19 | disposition home or self-care (01) ==
LOC: ER 12:20
DX: T83.9XXA Unspecified complication of genitourinary prosthetic device, implant and graft, initial encounter (principal); Z46.6 Encounter for fitting and adjustment of urinary device; K21.9 Gastro-esophageal reflux disease without esophagitis; E78.5 Hyperlipidemia, unspecified; I10 Essential (primary) hypertension; N40.0 Benign prostatic hyperplasia without lower urinary tract symptoms; M10.9 Gout, unspecified; F10.20 Alcohol dependence, uncomplicated
CPT/HCPCS: 99282